=== PATIENT | male | born 1960 | race Caucasian/White ===

== ENCOUNTER 2017-05-05 14:11 | Inpatient (IN) | payer BC ==
[2017-05-05] MEDS ORDERED: Heparin Sodium 100 Units/ML 3 ML Syringe IVPUSH PRN (15:11)
[2017-05-05] MEDS ORDERED: Alteplase 2 MG Vial IV PRN (15:11)
[2017-05-05] MEDS: ceFAZolin 1 GM Vial IV SCH ×2 (15:31→23:44)
[2017-05-05] MEDS: Heparin Sodium 100 Units/ML 3 ML Syringe IVPUSH SCH ×2 (15:31→23:45)
[2017-05-05] MEDS: Sodium Chloride 0.9% 10 ML Syringe IV SCH ×2 (15:31→23:45)
[2017-05-05] MEDS ORDERED: metFORMIN 500 MG Tab PO SCH (18:00)
[2017-05-05] MEDS: metFORMIN 500 MG Tab PO SCH (18:41)
[2017-05-05] MEDS: Tamsulosin 0.4 MG Cap.ER PO SCH (20:05)
[2017-05-05] MEDS: Losartan 50 MG Tab PO SCH (20:05)
[2017-05-05] MEDS: Magnesium Oxide 400 MG Tab PO SCH (20:05)
[2017-05-05] MEDS: Docusate Sodium 100 MG Cap PO SCH (20:05)
[2017-05-05] MEDS: atorvaSTATin 40 MG Tab PO SCH (20:05)
[2017-05-05] MEDS: Acetaminophen 325 MG Tab PO SCH (20:05)
[2017-05-05] MEDS: Polyethylene Glycol 3350 Powder 17 GM Packet PO SCH (20:06)
[2017-05-05] MEDS: Clobetasol 0.05% Crm 30 GM Tube TOP SCH (20:14)
[2017-05-05] MEDS: Miconazole 2% Top Powder 45 GM Container TOP SCH (20:14)
[2017-05-06] MEDS: ceFAZolin 1 GM Vial IV SCH (08:08)
[2017-05-06] MEDS: Enoxaparin 40 MG/0.4 ML Syringe SUBCUT SCH (08:08)
[2017-05-06] MEDS: Polyethylene Glycol 3350 Powder 17 GM Packet PO SCH ×2 (08:08→19:53)
[2017-05-06] MEDS: Docusate Sodium 100 MG Cap PO SCH ×2 (08:09→19:46)
[2017-05-06] MEDS: Magnesium Oxide 400 MG Tab PO SCH ×2 (08:09→19:46)
[2017-05-06] MEDS: Hydrochlorothiazide 25 MG Tab PO SCH (08:09)
[2017-05-06] MEDS: Heparin Sodium 100 Units/ML 3 ML Syringe IVPUSH SCH ×4 (08:09→19:52)
[2017-05-06] MEDS: buPROPion 150 MG Tab.ER PO SCH (08:10)
[2017-05-06] MEDS: Finasteride 5 MG Tab PO SCH (08:10)
[2017-05-06] MEDS: Acetaminophen 325 MG Tab PO SCH ×3 (08:10→19:45)
[2017-05-06] MEDS: Aspirin 81 MG Tab.EC PO SCH (08:10)
[2017-05-06] MEDS: JARDIANCE 25 MG PO SCH (08:10)
[2017-05-06] MEDS: Losartan 50 MG Tab PO SCH ×2 (08:10→19:46)
[2017-05-06] MEDS: Metoprolol Succinate 50 MG Tab.ER PO SCH (08:10)
[2017-05-06] MEDS: Miconazole 2% Top Powder 45 GM Container TOP SCH ×2 (08:11→19:47)
[2017-05-06] MEDS: metFORMIN 500 MG Tab PO SCH ×2 (08:11→17:12)
[2017-05-06] MEDS: Fluticasone Propionate Nasal Spray 16 GM Bottle**OWN MED NASBOTH SCH (08:11)
[2017-05-06] MEDS: Clobetasol 0.05% Crm 30 GM Tube TOP SCH (08:11)
[2017-05-06] MEDS: Sodium Chloride 0.9% 10 ML Syringe IV SCH ×5 (08:12→19:46)
--- NOTE | 2017-05-06 11:20 | PCM.HP ---
H&P History of Present Illness - General Date of Service: 05/05/17 Admit Problem/Dx: Admission Diagnosis/Problem Admission Diagnosis/Problem Abscess Source of Information: Patient, Old Records - History of Present Illness Initial Comments - Free Text/Narative: Swing bed readmission. History of present illness: Patient was originally diagnosed with spinal abscess last month. He was on six weeks of Ancef here. He developed spontaneous drainage from wound mostly serous with little bit of pus. He required a large range of this again in [place]. He was transferred there. Cultured and grew MSSA. He was switched from Ancef to Naprosyn only plan on doing six weeks from the date of his most recent procedure. He missed his urology appointment because of this. He still having some difficulty urinating requiring indwelling Patel. Denies any saddle numbness or cauda equina symptoms otherwise. Had neurologic evaluation when [place] and seen by neurosurgeon. Weakness and left leg is slowly improving per PT. He is doing better with his arms and feeding himself. He's been afebrile. Blood pressure mostly okay still running at touch high. On Lanoxin when necessary DVT prophylaxis. Past medical history: Epidural abscess,septic bacteremia secondary to abscess, BPH, depression, hypertension, hyperlipidemia, diabetes mellitus two. Social history: Nonsmoker, . family history: Noncontributy. Medications: Losartan, Toprol, and ampicillin, Tylenol, magnesium, hydrochlorothiazide, Lovenox, Proscar, Lipitor, aspirin, oxycodone, Wellbutrin, jardiance, metformin, Sena lax, Flomax. Review of systems: Denies fever denies chest pain denies dyspnea and denies peripheral edema or calf pain. Physical exam: Blood pressure 165 or 85 temperature 37 Celsius pulse 82. Third oriented male in wheelchair working with physical therapy no acute distress extremity is warm well perfused without edema or calf pain or swelling. Decreased 3-4 out of five strength left lower extremity. Upper extremity strength is okay. Heart and lungs clear to auscultation. Abdomen soft nontender. Large midline incision with sutures intact lumbar spine. No swelling erythema or drainage. History of sepsis secondary to epidural abscess requiring recent repeat incision and drainage. MSSA again by cultures. He has been switched to nafcillin, the plan appears to be six weeks of antibiotic from most recent procedure per infectious disease. Weekly labs per their request. After completion of antibiotics will undergo repeat imaging and follow-up with neurosurgery. 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 Continue. OT consult. Hopefully he will not need longer rehab stay after completion of six weeks antibiotics. Blood pressure bit high will monitor for now, titrate as needed. Continue Lovenox for now for DVT prophylaxis. As he becomes more ambulatory maybe stop this. Still difficulty with urination. On Flomax plus Proscar. We'll try to get urology referral again for him. Continue Patel for now. Headache Pain Score (Numeric/FACES): 1 - Related Data Allergies/Adverse Reactions: Allergies Allergy/AdvReac Type Severity Reaction Status Date / Time dog dander Allergy Other Verified 04/21/17 13:03 grass pollen Allergy Other Verified 04/21/17 13:03 Horse/Equine Containing Allergy Rash Verified 09/04/13 00:55 Products lisinopril Allergy Swollen Verified 05/05/17 14:14 Tongue mold Allergy Cannot Verified 05/05/17 14:14 Remember Penicillins Allergy unknown Verified 09/04/13 00:55 weed pollen Allergy Cannot Verified 05/05/17 14:14 Remember Home Medications: Home Meds Aspirin [Halfprin] 81 mg PO DAILY 09/04/13 [History] Clobetasol [Clobetasol Propionate 0.05%] 1 gram TOP BID 09/04/13 [History] Metoprolol Succinate [Toprol XL 100mg] 100 mg PO DAILY 09/04/13 [History] atorvaSTATin [Lipitor] 40 mg PO BEDTIME 09/04/13 [History] buPROPion [buPROPion XL] 150 mg PO DAILY 09/04/13 [History] metFORMIN [Glucophage] 1,000 mg PO BIDM 09/04/13 [History] Docusate Sodium [Colace] 100 mg PO BID 04/09/17 [History] Empagliflozin [Jardiance] 25 mg PO DAILY 04/09/17 [History] Fluticasone Propionate [Flonase] 1 spray NASBOTH DAILY 04/09/17 [History] Niacinamide [Niacin] 1,000 mg PO DAILY 04/09/17 [History] Non-Formulary Medication [NF Drug] 50 - 100 mg PO ASDIRECTED PRN 04/09/17 [ History] Polyethylene Glycol 3350 [MiraLAX] 17 gm PO Q12H 04/09/17 [History] Tamsulosin [Flomax] 0.4 mg PO BEDTIME 04/09/17 [History] oxyCODONE 5 mg PO Q4H PRN 04/09/17 [History] Acetaminophen [Tylenol] 650 mg PO TID tablet 05/02/17 [Rx] Finasteride [Proscar] 5 mg PO DAILY tablet 05/02/17 [Rx] Hydrochlorothiazide 25 mg PO DAILY tablet 05/02/17 [Rx] Losartan [Cozaar] 50 mg PO BID tablet 05/02/17 [Rx] Magnesium Oxide 400 mg PO BID tablet 05/02/17 [Rx] Enoxaparin [Lovenox] 40 mg SUBCUT DAILY 05/05/17 [History] Miconazole [Desenex 2%] 1 applic TOP BID 05/05/17 [History] Nafcillin 2 gm IV Q4H 05/05/17 [History] Non-Formulary Medication [NF Drug] 2 tab PO DAILY 05/05/17 [History] Past Medical History Cardiovascular History: Reports: Hypertension Respiratory History: Reports: Asthma Genitourinary History: Reports: Prostate Disorder, Retention, Urinary Musculoskeletal History: Reports: Back Pain, Chronic Endocrine/Metabolic History: Reports: Diabetes, Type II, Obesity/BMI 30+ - Infectious Disease History Infectious Disease History: Reports: Chicken Pox - Past Surgical History Cardiovascular Surgical History: Reports: None Respiratory Surgical History: Reports: None Male Surgical History: Reports: None Other Male Surgeries/Procedures: Currently has a Patel in place from urology in [place]. Musculoskeletal Surgical History: Reports: Other (See Below) Other Musculoskeletal Surgeries/Procedures:: Laminectomy L4-L5 Social & Family History - Family History Family Medical History: Noncontributory HEENT: Reports: Cataract Cardiac: Reports: Angina, Arrhythmia, Heart Failure, Hypertension, [place], Pacemaker , Syncope Respiratory: Reports: None GI: Reports: None Neurological: Reports: Alzheimers Disease Psychiatric: Reports: Anxiety Endocrine/Metabolic: Reports: Diabetes, Type I Oncologic: Reports: Breast, Liver, Lung - Tobacco Use Smoking Status *Q: Never Smoker Second Hand Smoke Exposure: No - Caffeine Use Caffeine Use: Reports: Coffee, Soda - Alcohol Use Days Per Week of Alcohol Use: 0 - Recreational Drug Use Recreational Drug Use: No H&P Review of Systems - Review of Systems: Review Of Systems: See Below Exam - Exam Exam: See Below - Vital Signs Vital Signs: Last Vital Signs Temp 37.0 C 05/06/17 06:00 Pulse 94 05/06/17 08:10 Resp 19 05/06/17 06:00 BP 165/95 H 05/06/17 08:10 Pulse Ox 99 05/06/17 06:00 Weight: 75.75 kg *Q Meaningful Use (ADM) - VTE *Q VTE Criteria *Q: - Stroke *Q Stroke Criteria *Q: - AMI *Q AMI Criteria *Q: Problem List Initiated/Reviewed/Updated: Yes Orders Last 24hrs: Active Orders 24 hr Category Date Time Status Admission Status [Patient Status] [ADT] Routine ADT 05/05/17 14:37 Active Accu Check [Blood Glucose Check, Bedside] [RC] 07,17 Care 05/05/17 17:03 Active Antiembolic Devices [RC] 08,20 Care 05/05/17 18:08 Active Communication Order [RC] 08 Care 05/05/17 14:41 Active Communication Order [RC] Tu@10 Care 05/05/17 14:40 Active OT Evaluation and Treatment [CONS] Routine Cons 05/05/17 14:39 Active PT Evaluation and Treatment [CONS] Routine Cons 05/05/17 14:38 Active Regular Diet [DIET] Diet 05/05/17 Dinner Active ASPARTATE AMNIOTRANSFERASE,AST [CHEM] WEEKLY Lab 05/25/17 05:00 Ordered ASPARTATE AMNIOTRANSFERASE,AST [CHEM] WEEKLY Lab 06/01/17 05:00 Ordered ASPARTATE AMNIOTRANSFERASE,AST [CHEM] WEEKLY Lab 06/08/17 05:00 Ordered ASPARTATE AMNIOTRANSFERASE,AST [CHEM] WEEKLY Lab 06/15/17 05:00 Ordered ASPARTATE AMNIOTRANSFERASE,AST [CHEM] WEEKLY Lab 06/22/17 05:00 Ordered ASPARTATE AMNIOTRANSFERASE,AST [CHEM] WEEKLY Lab 06/29/17 05:00 Ordered ASPARTATE AMNIOTRANSFERASE,AST [CHEM] WEEKLY Lab 05/11/17 05:00 Ordered ASPARTATE AMNIOTRANSFERASE,AST [CHEM] WEEKLY Lab 05/18/17 05:00 Ordered CBC WITH AUTO DIFF [HEME] WEEKLY Lab 05/25/17 05:00 Ordered CBC WITH AUTO DIFF [HEME] WEEKLY Lab 06/01/17 05:00 Ordered CBC WITH AUTO DIFF [HEME] WEEKLY Lab 06/08/17 05:00 Ordered CBC WITH AUTO DIFF [HEME] WEEKLY Lab 06/15/17 05:00 Ordered CBC WITH AUTO DIFF [HEME] WEEKLY Lab 06/22/17 05:00 Ordered CBC WITH AUTO DIFF [HEME] WEEKLY Lab 06/29/17 05:00 Ordered CBC WITH AUTO DIFF [HEME] WEEKLY Lab 05/11/17 05:00 Ordered CBC WITH AUTO DIFF [HEME] WEEKLY Lab 05/18/17 05:00 Ordered CREATININE W/GFR [CHEM] WEEKLY Lab 05/25/17 05:00 Ordered CREATININE W/GFR [CHEM] WEEKLY Lab 06/01/17 05:00 Ordered CREATININE W/GFR [CHEM] WEEKLY Lab 06/08/17 05:00 Ordered CREATININE W/GFR [CHEM] WEEKLY Lab 06/15/17 05:00 Ordered CREATININE W/GFR [CHEM] WEEKLY Lab 06/22/17 05:00 Ordered CREATININE W/GFR [CHEM] WEEKLY Lab 06/29/17 05:00 Ordered CREATININE W/GFR [CHEM] WEEKLY Lab 05/11/17 05:00 Ordered CREATININE W/GFR [CHEM] WEEKLY Lab 05/18/17 05:00 Ordered CRP [C-REACTIVE PROTEIN] [CHEM] WEEKLY Lab 05/25/17 05:00 Ordered CRP [C-REACTIVE PROTEIN] [CHEM] WEEKLY Lab 06/01/17 05:00 Ordered CRP [C-REACTIVE PROTEIN] [CHEM] WEEKLY Lab 06/08/17 05:00 Ordered CRP [C-REACTIVE PROTEIN] [CHEM] WEEKLY Lab 06/15/17 05:00 Ordered CRP [C-REACTIVE PROTEIN] [CHEM] WEEKLY Lab 06/22/17 05:00 Ordered CRP [C-REACTIVE PROTEIN] [CHEM] WEEKLY Lab 06/29/17 05:00 Ordered CRP [C-REACTIVE PROTEIN] [CHEM] WEEKLY Lab 05/11/17 05:00 Ordered CRP [C-REACTIVE PROTEIN] [CHEM] WEEKLY Lab 05/18/17 05:00 Ordered CULTURE MRSA SURVEY [RM] Routine Lab 05/05/17 15:19 Received SEDIMENTATION RATE AUTO [HEME] WEEKLY Lab 05/25/17 05:00 Ordered SEDIMENTATION RATE AUTO [HEME] WEEKLY Lab 06/01/17 05:00 Ordered SEDIMENTATION RATE AUTO [HEME] WEEKLY Lab 06/08/17 05:00 Ordered SEDIMENTATION RATE AUTO [HEME] WEEKLY Lab 06/15/17 05:00 Ordered SEDIMENTATION RATE AUTO [HEME] WEEKLY Lab 06/22/17 05:00 Ordered SEDIMENTATION RATE AUTO [HEME] WEEKLY Lab 06/29/17 05:00 Ordered SEDIMENTATION RATE AUTO [HEME] WEEKLY Lab 05/11/17 05:00 Ordered SEDIMENTATION RATE AUTO [HEME] WEEKLY Lab 05/18/17 05:00 Ordered Acetaminophen [Tylenol] Med 05/05/17 20:00 Active 650 mg PO TID Alteplase [Cathflo Activase] Med 05/05/17 15:11 Active 2 mg IV ASDIRECTED PRN Aspirin [Halfprin] Med 05/06/17 08:00 Active 81 mg PO DAILY Clobetasol [Clobetasol 0.05%] Med 05/05/17 20:00 Active 0 gm TOP BID Docusate Sodium [Colace] Med 05/05/17 20:00 Active 100 mg PO BID Empagliflozin [Jardiance] Med 05/06/17 08:00 Pending 0 mg PO DAILY Enoxaparin [Lovenox] Med 05/06/17 08:00 Active 40 mg SUBCUT DAILY Finasteride [Proscar] Med 05/06/17 08:00 Active 5 mg PO DAILY Fluticasone Propionate [Flonase] Med 05/06/17 08:00 Active 0 gm NASBOTH DAILY Heparin Sodium [Heparin Lock Flush 100 Units/ML] Med 05/05/17 15:11 Active 300 unit IVPUSH ASDIRECTED PRN Heparin Sodium [Heparin Lock Flush 100 Units/ML] Med 05/06/17 12:00 Active 300 unit IVPUSH Q4H Hydrochlorothiazide Med 05/06/17 08:00 Active 25 mg PO DAILY Losartan [Cozaar] Med 05/05/17 20:00 Active 50 mg PO BID Magnesium Oxide Med 05/05/17 20:00 Active 400 mg PO BID Metoprolol Succinate [Toprol XL] Med 05/06/17 08:00 Active 100 mg PO DAILY Miconazole [Desenex 2%] Med 05/05/17 20:00 Active 0 gm TOP BID Nafcillin Med 05/06/17 12:00 Active 2 gm IV Q4H Non-Formulary Medication [NF Drug] Med 05/06/17 12:00 Pending 0 tab PO DAILY Polyethylene Glycol 3350 [MiraLAX] Med 05/05/17 20:00 Active 17 gm PO Q12H Sodium Chloride 0.9% [Saline Flush] Med 05/05/17 15:10 Active 10 ml IV ASDIRECTED PRN Sodium Chloride 0.9% [Saline Flush] Med 05/06/17 12:00 Active 10 ml IV Q4H Sodium Chloride 0.9% [Saline Flush] Med 05/05/17 16:00 Active 10 ml IV Q8H Tamsulosin [Flomax] Med 05/05/17 20:00 Active 0.4 mg PO BEDTIME atorvaSTATin [Lipitor] Med 05/05/17 20:00 Active 40 mg PO BEDTIME buPROPion [Wellbutrin XL] Med 05/06/17 08:00 Active 150 mg PO DAILY metFORMIN [Glucophage] Med 05/05/17 18:45 Active 1,000 mg PO BIDM oxyCODONE Med 05/05/17 17:10 Active 5 mg PO Q4H PRN SCD [Sequential Compression Device] [OM.PC] Routine Oth 05/05/17 18:08 Ordered Code Status [Resuscitation Status] Routine Resus Stat 05/05/17 17:11 Ordered Medication Orders Acetaminophen (Tylenol) 650 mg PO TID [facility] Last Admin: 05/06/17 08:10 Dose: 650 mg Admin: 05/05/17 20:05 Dose: 650 mg Alteplase, Recombinant (Cathflo Activase) 2 mg IV ASDIRECTED PRN PRN Reason: OCCLUDED PICC Aspirin (Halfprin) 81 mg PO DAILY [facility] Last Admin: 05/06/17 08:10 Dose: 81 mg Atorvastatin Calcium (Lipitor) 40 mg PO BEDTIME [facility] Last Admin: 05/05/17 20:05 Dose: 40 mg Bupropion HCl (Wellbutrin Xl) 150 mg PO DAILY [facility] Last Admin: 05/06/17 08:10 Dose: 150 mg Clobetasol Propionate (Clobetasol 0.05%) 0 gm TOP BID [facility] Last Admin: 05/06/17 08:11 Dose: Not Given Admin: 05/05/17 20:14 Dose: 1 applic Docusate Sodium (Colace) 100 mg PO BID [facility] Last Admin: 05/06/17 08:09 Dose: 100 mg Admin: 05/05/17 20:05 Dose: 100 mg Enoxaparin Sodium (Lovenox) 40 mg SUBCUT DAILY [facility] Last Admin: 05/06/17 08:08 Dose: 40 mg Finasteride (Proscar) 5 mg PO DAILY [facility] Last Admin: 05/06/17 08:10 Dose: 5 mg Fluticasone Propionate (Flonase) 0 gm NASBOTH DAILY [facility] Last Admin: 05/06/17 08:11 Dose: 1 spray Heparin Sodium (Porcine) (Heparin Lock Flush 100 Units/Ml) 300 unit IVPUSH ASDIRECTED PRN PRN Reason: Keep Vein Open Heparin Sodium (Porcine) (Heparin Lock Flush 100 Units/Ml) 300 unit IVPUSH Q4H [facility] Hydrochlorothiazide (Hydrochlorothiazide) 25 mg PO DAILY [facility] Last Admin: 05/06/17 08:09 Dose: 25 mg Losartan Potassium (Cozaar) 50 mg PO BID [facility] Last Admin: 05/06/17 08:10 Dose: 50 mg Admin: 05/05/17 20:05 Dose: 50 mg Magnesium Oxide (Magnesium Oxide) 400 mg PO BID [facility] Last Admin: 05/06/17 08:09 Dose: 400 mg Admin: 05/05/17 20:05 Dose: 400 mg Metformin HCl (Glucophage) 1,000 mg PO BIDM [facility] Last Admin: 05/06/17 08:11 Dose: 1,000 mg Admin: 05/05/17 18:41 Dose: 1,000 mg Metoprolol Succinate (Toprol Xl) 100 mg PO DAILY [facility] Last Admin: 05/06/17 08:10 Dose: 100 mg Miconazole (Desenex 2%) 0 gm TOP BID [facility] Last Admin: 05/06/17 08:11 Dose: 1 applic Admin: 05/05/17 20:14 Dose: 1 applic Nafcillin Sodium (Nafcillin) 2 gm IV Q4H [facility] Jardiance 25 Mg (Own Med) 0 mg PO DAILY [facility] Digest. Adv Probiotic Gummy Own Med 0 tab PO DAILY [facility] Oxycodone HCl (Oxycodone) 5 mg PO Q4H PRN PRN Reason: Pain (severe 7-10) Polyethylene Glycol (Miralax) 17 gm PO Q12H [facility] Last Admin: 05/06/17 08:08 Dose: 17 gm Admin: 05/05/17 20:06 Dose: Not Given Sodium Chloride (Saline Flush) 10 ml IV Q8H [facility] Last Admin: 05/06/17 08:12 Dose: 10 ml Admin: 05/05/17 23:45 Dose: 10 ml Admin: 05/05/17 15:31 Dose: 10 ml Sodium Chloride (Saline Flush) 10 ml IV ASDIRECTED PRN PRN Reason: Keep Vein Open Sodium Chloride (Saline Flush) 10 ml IV Q4H [facility] Tamsulosin HCl (Flomax) 0.4 mg PO BEDTIME [facility] Last Admin: 05/05/17 20:05 Dose: 0.4 mg
[2017-05-06] MEDS: oxyCODONE 5 MG Tab PO PRN (12:03)
[2017-05-06] MEDS: [UNRECOGNIZED DRUG - OTHER] PO SCH (12:24)
[2017-05-06] MEDS: Nafcillin 2 GM Vial IV SCH ×3 (12:24→19:45)
[2017-05-06] MEDS: atorvaSTATin 40 MG Tab PO SCH (19:46)
[2017-05-06] MEDS: Tamsulosin 0.4 MG Cap.ER PO SCH (19:46)
[2017-05-06] MEDS: Sodium Chloride 0.9% 10 ML Syringe IV PRN (19:53)
[2017-05-07] MEDS: Nafcillin 2 GM Vial IV SCH ×7 (00:28→23:46)
[2017-05-07] MEDS: Sodium Chloride 0.9% 10 ML Syringe IV SCH ×9 (00:28→23:46)
[2017-05-07] MEDS: Heparin Sodium 100 Units/ML 3 ML Syringe IVPUSH SCH ×7 (00:29→23:51)
[2017-05-07] MEDS: buPROPion 150 MG Tab.ER PO SCH (07:32)
[2017-05-07] MEDS: Enoxaparin 40 MG/0.4 ML Syringe SUBCUT SCH (07:32)
[2017-05-07] MEDS: Finasteride 5 MG Tab PO SCH (07:33)
[2017-05-07] MEDS: Hydrochlorothiazide 25 MG Tab PO SCH (07:33)
[2017-05-07] MEDS: Magnesium Oxide 400 MG Tab PO SCH ×2 (07:33→19:55)
[2017-05-07] MEDS: Acetaminophen 325 MG Tab PO SCH ×3 (07:33→19:54)
[2017-05-07] MEDS: Losartan 50 MG Tab PO SCH ×2 (07:33→19:55)
[2017-05-07] MEDS: metFORMIN 500 MG Tab PO SCH ×2 (07:33→17:46)
[2017-05-07] MEDS: Docusate Sodium 100 MG Cap PO SCH ×2 (07:34→19:55)
[2017-05-07] MEDS: Metoprolol Succinate 50 MG Tab.ER PO SCH (07:34)
[2017-05-07] MEDS: Miconazole 2% Top Powder 45 GM Container TOP SCH ×2 (07:34→19:55)
[2017-05-07] MEDS: Aspirin 81 MG Tab.EC PO SCH (07:34)
[2017-05-07] MEDS: Fluticasone Propionate Nasal Spray 16 GM Bottle**OWN MED NASBOTH SCH (07:35)
[2017-05-07] MEDS: JARDIANCE 25 MG PO SCH (07:35)
[2017-05-07] MEDS: Polyethylene Glycol 3350 Powder 17 GM Packet PO SCH ×2 (07:35→19:54)
[2017-05-07] MEDS: [UNRECOGNIZED DRUG - OTHER] PO SCH ×2 (09:28→14:49)
[2017-05-07] MEDS ORDERED: Sodium Chloride 0.9% 10 ML Syringe IV SCH (12:00)
[2017-05-07] MEDS: atorvaSTATin 40 MG Tab PO SCH (19:54)
[2017-05-07] MEDS: Tamsulosin 0.4 MG Cap.ER PO SCH (19:55)
[2017-05-08] MEDS: Heparin Sodium 100 Units/ML 3 ML Syringe IVPUSH SCH ×6 (04:02→23:43)
[2017-05-08] MEDS: Sodium Chloride 0.9% 10 ML Syringe IV SCH ×6 (04:02→23:43)
[2017-05-08] MEDS: Nafcillin 2 GM Vial IV SCH ×6 (04:02→23:43)
[2017-05-08] MEDS: Polyethylene Glycol 3350 Powder 17 GM Packet PO SCH ×2 (07:58→20:12)
[2017-05-08] MEDS: Docusate Sodium 100 MG Cap PO SCH ×2 (07:59→20:13)
[2017-05-08] MEDS: Aspirin 81 MG Tab.EC PO SCH (07:59)
[2017-05-08] MEDS: Hydrochlorothiazide 25 MG Tab PO SCH (07:59)
[2017-05-08] MEDS: Enoxaparin 40 MG/0.4 ML Syringe SUBCUT SCH (07:59)
[2017-05-08] MEDS: buPROPion 150 MG Tab.ER PO SCH (08:00)
[2017-05-08] MEDS: Finasteride 5 MG Tab PO SCH (08:00)
[2017-05-08] MEDS: metFORMIN 500 MG Tab PO SCH ×3 (08:00→17:00)
[2017-05-08] MEDS: Acetaminophen 325 MG Tab PO SCH ×3 (08:00→20:12)
[2017-05-08] MEDS: Magnesium Oxide 400 MG Tab PO SCH ×2 (08:00→20:13)
[2017-05-08] MEDS: Losartan 50 MG Tab PO SCH ×2 (08:00→20:13)
[2017-05-08] MEDS: Miconazole 2% Top Powder 45 GM Container TOP SCH ×2 (08:00→20:14)
[2017-05-08] MEDS: Metoprolol Succinate 50 MG Tab.ER PO SCH (08:00)
[2017-05-08] MEDS: Fluticasone Propionate Nasal Spray 16 GM Bottle**OWN MED NASBOTH SCH (08:01)
[2017-05-08] MEDS: JARDIANCE 25 MG PO SCH (08:01)
[2017-05-08] MEDS: [UNRECOGNIZED DRUG - OTHER] PO SCH (12:09)
[2017-05-08] MEDS: Tamsulosin 0.4 MG Cap.ER PO SCH (20:13)
[2017-05-08] MEDS: atorvaSTATin 40 MG Tab PO SCH (20:13)
[2017-05-09] MEDS: Nafcillin 2 GM Vial IV SCH ×5 (03:49→20:39)
[2017-05-09] MEDS: Heparin Sodium 100 Units/ML 3 ML Syringe IVPUSH SCH ×5 (03:49→20:38)
[2017-05-09] MEDS: Sodium Chloride 0.9% 10 ML Syringe IV SCH ×5 (03:49→20:39)
[2017-05-09] MEDS: oxyCODONE 5 MG Tab PO PRN ×3 (06:01→18:49)
[2017-05-09] MEDS: JARDIANCE 25 MG PO SCH (08:41)
[2017-05-09] MEDS: Fluticasone Propionate Nasal Spray 16 GM Bottle**OWN MED NASBOTH SCH (08:43)
[2017-05-09] MEDS: Losartan 50 MG Tab PO SCH ×2 (08:43→20:37)
[2017-05-09] MEDS: Magnesium Oxide 400 MG Tab PO SCH ×2 (08:43→20:38)
[2017-05-09] MEDS: Hydrochlorothiazide 25 MG Tab PO SCH (08:43)
[2017-05-09] MEDS: Aspirin 81 MG Tab.EC PO SCH (08:43)
[2017-05-09] MEDS: buPROPion 150 MG Tab.ER PO SCH (08:43)
[2017-05-09] MEDS: Enoxaparin 40 MG/0.4 ML Syringe SUBCUT SCH (08:43)
[2017-05-09] MEDS: Finasteride 5 MG Tab PO SCH (08:43)
[2017-05-09] MEDS: metFORMIN 500 MG Tab PO SCH ×2 (08:44→17:14)
[2017-05-09] MEDS: Metoprolol Succinate 50 MG Tab.ER PO SCH (08:44)
[2017-05-09] MEDS: Miconazole 2% Top Powder 45 GM Container TOP SCH ×2 (08:44→20:37)
[2017-05-09] MEDS: Docusate Sodium 100 MG Cap PO SCH ×2 (08:44→20:38)
[2017-05-09] MEDS: Acetaminophen 325 MG Tab PO SCH ×4 (08:44→20:36)
[2017-05-09] MEDS: Polyethylene Glycol 3350 Powder 17 GM Packet PO SCH ×2 (08:46→20:38)
[2017-05-09] MEDS: [UNRECOGNIZED DRUG - OTHER] PO SCH (12:17)
[2017-05-09] MEDS: atorvaSTATin 40 MG Tab PO SCH (20:36)
[2017-05-09] MEDS: Tamsulosin 0.4 MG Cap.ER PO SCH (20:37)
[2017-05-10] MEDS: Heparin Sodium 100 Units/ML 3 ML Syringe IVPUSH SCH ×6 (00:54→21:04)
[2017-05-10] MEDS: Nafcillin 2 GM Vial IV SCH ×6 (00:54→21:04)
[2017-05-10] MEDS: Sodium Chloride 0.9% 10 ML Syringe IV SCH ×6 (00:54→21:05)
[2017-05-10] MEDS: Polyethylene Glycol 3350 Powder 17 GM Packet PO SCH ×2 (08:32→21:04)
[2017-05-10] MEDS: Enoxaparin 40 MG/0.4 ML Syringe SUBCUT SCH (08:32)
[2017-05-10] MEDS: buPROPion 150 MG Tab.ER PO SCH (08:33)
[2017-05-10] MEDS: Magnesium Oxide 400 MG Tab PO SCH ×2 (08:33→21:04)
[2017-05-10] MEDS: Losartan 50 MG Tab PO SCH ×2 (08:33→21:03)
[2017-05-10] MEDS: Aspirin 81 MG Tab.EC PO SCH (08:33)
[2017-05-10] MEDS: Docusate Sodium 100 MG Cap PO SCH ×2 (08:33→21:02)
[2017-05-10] MEDS: Finasteride 5 MG Tab PO SCH (08:33)
[2017-05-10] MEDS: Acetaminophen 325 MG Tab PO SCH ×3 (08:33→21:03)
[2017-05-10] MEDS: Hydrochlorothiazide 25 MG Tab PO SCH (08:33)
[2017-05-10] MEDS: metFORMIN 500 MG Tab PO SCH ×3 (08:33→17:01)
[2017-05-10] MEDS: Metoprolol Succinate 50 MG Tab.ER PO SCH (08:33)
[2017-05-10] MEDS: Fluticasone Propionate Nasal Spray 16 GM Bottle**OWN MED NASBOTH SCH (08:34)
[2017-05-10] MEDS: Miconazole 2% Top Powder 45 GM Container TOP SCH ×2 (08:34→21:04)
[2017-05-10] MEDS: JARDIANCE 25 MG PO SCH (08:34)
[2017-05-10] MEDS: oxyCODONE 5 MG Tab PO PRN (10:41)
[2017-05-10] MEDS: [UNRECOGNIZED DRUG - OTHER] PO SCH (12:03)
[2017-05-10] MEDS: Acetaminophen 500 MG Tab PO PRN (17:11)
[2017-05-10] MEDS: atorvaSTATin 40 MG Tab PO SCH (21:03)
[2017-05-10] MEDS: Tamsulosin 0.4 MG Cap.ER PO SCH (21:03)
[2017-05-11] MEDS: Nafcillin 2 GM Vial IV SCH ×6 (00:49→20:44)
[2017-05-11] MEDS: Heparin Sodium 100 Units/ML 3 ML Syringe IVPUSH SCH ×6 (00:49→20:51)
[2017-05-11] MEDS: Sodium Chloride 0.9% 10 ML Syringe IV SCH ×6 (00:49→20:44)
[2017-05-11 07:59] LABS: CHLORIDE,CL 103 mmol/L (98-107); SODIUM,NA 143 mmol/L (136-145)
[2017-05-11] MEDS: metFORMIN 500 MG Tab PO SCH ×2 (08:17→17:07)
[2017-05-11] MEDS: Hydrochlorothiazide 25 MG Tab PO SCH (08:17)
[2017-05-11] MEDS: Metoprolol Succinate 50 MG Tab.ER PO SCH (08:18)
[2017-05-11] MEDS: buPROPion 150 MG Tab.ER PO SCH (08:18)
[2017-05-11] MEDS: Losartan 50 MG Tab PO SCH ×2 (08:18→20:43)
[2017-05-11] MEDS: Aspirin 81 MG Tab.EC PO SCH (08:18)
[2017-05-11] MEDS: Magnesium Oxide 400 MG Tab PO SCH ×2 (08:18→20:43)
[2017-05-11] MEDS: Finasteride 5 MG Tab PO SCH (08:18)
[2017-05-11] MEDS: Docusate Sodium 100 MG Cap PO SCH ×2 (08:18→20:43)
[2017-05-11] MEDS: Polyethylene Glycol 3350 Powder 17 GM Packet PO SCH ×2 (08:19→20:51)
[2017-05-11] MEDS: Enoxaparin 40 MG/0.4 ML Syringe SUBCUT SCH (08:19)
[2017-05-11] MEDS: Acetaminophen 325 MG Tab PO SCH ×3 (08:19→20:42)
[2017-05-11] MEDS: Fluticasone Propionate Nasal Spray 16 GM Bottle**OWN MED NASBOTH SCH (08:25)
[2017-05-11] MEDS: JARDIANCE 25 MG PO SCH (08:27)
[2017-05-11] MEDS: Miconazole 2% Top Powder 45 GM Container TOP SCH ×2 (08:28→20:43)
[2017-05-11] MEDS: [UNRECOGNIZED DRUG - OTHER] PO SCH (11:09)
[2017-05-11] MEDS: Tamsulosin 0.4 MG Cap.ER PO SCH (20:42)
[2017-05-11] MEDS: atorvaSTATin 40 MG Tab PO SCH (20:43)
[2017-05-12] MEDS: Heparin Sodium 100 Units/ML 3 ML Syringe IVPUSH SCH ×5 (00:16→19:52)
[2017-05-12] MEDS: Nafcillin 2 GM Vial IV SCH ×6 (00:16→19:51)
[2017-05-12] MEDS: Sodium Chloride 0.9% 10 ML Syringe IV SCH ×5 (00:16→19:51)
[2017-05-12] MEDS ORDERED: Non-Formulary Medication 1 Each PO PRN (13:35)
[2017-05-12] MEDS ORDERED: Nafcillin 2 GM Vial IV SCH (13:45)
[2017-05-12] MEDS ORDERED: Potassium Chloride 20 MEQ Tab.ER PO SCH (13:45)
[2017-05-12] MEDS: JARDIANCE 25 MG PO SCH (13:52)
[2017-05-12] MEDS: Docusate Sodium 100 MG Cap PO SCH ×2 (13:52→19:51)
[2017-05-12] MEDS: Miconazole 2% Top Powder 45 GM Container TOP SCH ×2 (13:52→19:52)
[2017-05-12] MEDS: Fluticasone Propionate Nasal Spray 16 GM Bottle**OWN MED NASBOTH SCH (13:52)
[2017-05-12] MEDS: metFORMIN 500 MG Tab PO SCH ×2 (13:52→17:32)
[2017-05-12] MEDS: Losartan 50 MG Tab PO SCH ×2 (13:52→19:52)
[2017-05-12] MEDS: Enoxaparin 40 MG/0.4 ML Syringe SUBCUT SCH (13:53)
[2017-05-12] MEDS: Magnesium Oxide 400 MG Tab PO SCH ×2 (13:53→19:52)
[2017-05-12] MEDS: Aspirin 81 MG Tab.EC PO SCH (13:53)
[2017-05-12] MEDS: Hydrochlorothiazide 25 MG Tab PO SCH (13:53)
[2017-05-12] MEDS: Polyethylene Glycol 3350 Powder 17 GM Packet PO SCH ×2 (13:53→20:22)
[2017-05-12] MEDS: Metoprolol Succinate 50 MG Tab.ER PO SCH (13:54)
[2017-05-12] MEDS: buPROPion 150 MG Tab.ER PO SCH (13:54)
[2017-05-12] MEDS: Finasteride 5 MG Tab PO SCH (13:54)
[2017-05-12] MEDS: Acetaminophen 325 MG Tab PO SCH ×2 (13:54→19:52)
[2017-05-12] MEDS: [UNRECOGNIZED DRUG - OTHER] PO SCH (13:55)
[2017-05-12] MEDS: Potassium Chloride 20 MEQ Tab.ER PO SCH ×2 (14:38→17:31)
[2017-05-12] MEDS: atorvaSTATin 40 MG Tab PO SCH (19:51)
[2017-05-12] MEDS: Tamsulosin 0.4 MG Cap.ER PO SCH (19:52)
[2017-05-13] MEDS: Nafcillin 2 GM Vial IV SCH ×6 (00:09→19:53)
[2017-05-13] MEDS: Sodium Chloride 0.9% 10 ML Syringe IV SCH ×6 (00:09→19:53)
[2017-05-13] MEDS: Heparin Sodium 100 Units/ML 3 ML Syringe IVPUSH SCH ×6 (00:09→19:53)
[2017-05-13] MEDS: Enoxaparin 40 MG/0.4 ML Syringe SUBCUT SCH (08:08)
[2017-05-13] MEDS: Potassium Chloride 20 MEQ Tab.ER PO SCH ×2 (08:09→17:40)
[2017-05-13] MEDS: Metoprolol Succinate 50 MG Tab.ER PO SCH (08:09)
[2017-05-13] MEDS: Aspirin 81 MG Tab.EC PO SCH (08:09)
[2017-05-13] MEDS: Finasteride 5 MG Tab PO SCH (08:09)
[2017-05-13] MEDS: Docusate Sodium 100 MG Cap PO SCH ×2 (08:09→19:52)
[2017-05-13] MEDS: buPROPion 150 MG Tab.ER PO SCH (08:09)
[2017-05-13] MEDS: Hydrochlorothiazide 25 MG Tab PO SCH (08:09)
[2017-05-13] MEDS: Polyethylene Glycol 3350 Powder 17 GM Packet PO SCH ×2 (08:10→19:54)
[2017-05-13] MEDS: Acetaminophen 325 MG Tab PO SCH ×3 (08:10→19:52)
[2017-05-13] MEDS: Fluticasone Propionate Nasal Spray 16 GM Bottle**OWN MED NASBOTH SCH (08:10)
[2017-05-13] MEDS: metFORMIN 500 MG Tab PO SCH ×2 (08:10→17:41)
[2017-05-13] MEDS: Magnesium Oxide 400 MG Tab PO SCH ×2 (08:10→19:53)
[2017-05-13] MEDS: Losartan 50 MG Tab PO SCH ×2 (08:10→19:52)
[2017-05-13] MEDS: JARDIANCE 25 MG PO SCH (08:11)
[2017-05-13] MEDS: Miconazole 2% Top Powder 45 GM Container TOP SCH ×2 (08:11→19:53)
[2017-05-13] MEDS: [UNRECOGNIZED DRUG - OTHER] PO SCH (12:25)
[2017-05-13] MEDS: atorvaSTATin 40 MG Tab PO SCH (19:52)
[2017-05-13] MEDS: Tamsulosin 0.4 MG Cap.ER PO SCH (19:53)
[2017-05-14] MEDS: Sodium Chloride 0.9% 10 ML Syringe IV SCH ×6 (00:06→19:38)
[2017-05-14] MEDS: Nafcillin 2 GM Vial IV SCH ×6 (00:06→19:37)
[2017-05-14] MEDS: Heparin Sodium 100 Units/ML 3 ML Syringe IVPUSH SCH ×6 (00:06→19:38)
[2017-05-14] MEDS: Miconazole 2% Top Powder 45 GM Container TOP SCH ×2 (08:06→19:38)
[2017-05-14] MEDS: Hydrochlorothiazide 25 MG Tab PO SCH (08:07)
[2017-05-14] MEDS: Enoxaparin 40 MG/0.4 ML Syringe SUBCUT SCH (08:07)
[2017-05-14] MEDS: Docusate Sodium 100 MG Cap PO SCH ×2 (08:08→19:38)
[2017-05-14] MEDS: Metoprolol Succinate 50 MG Tab.ER PO SCH (08:08)
[2017-05-14] MEDS: Acetaminophen 325 MG Tab PO SCH ×3 (08:08→19:37)
[2017-05-14] MEDS: buPROPion 150 MG Tab.ER PO SCH (08:08)
[2017-05-14] MEDS: Losartan 50 MG Tab PO SCH ×2 (08:08→19:38)
[2017-05-14] MEDS: Finasteride 5 MG Tab PO SCH (08:09)
[2017-05-14] MEDS: Magnesium Oxide 400 MG Tab PO SCH ×2 (08:09→19:37)
[2017-05-14] MEDS: Potassium Chloride 20 MEQ Tab.ER PO SCH ×2 (08:09→18:02)
[2017-05-14] MEDS: metFORMIN 500 MG Tab PO SCH ×2 (08:09→18:02)
[2017-05-14] MEDS: Aspirin 81 MG Tab.EC PO SCH (08:09)
[2017-05-14] MEDS: Fluticasone Propionate Nasal Spray 16 GM Bottle**OWN MED NASBOTH SCH (08:10)
[2017-05-14] MEDS: JARDIANCE 25 MG PO SCH (08:10)
[2017-05-14] MEDS: Polyethylene Glycol 3350 Powder 17 GM Packet PO SCH ×2 (08:49→19:39)
[2017-05-14] MEDS: [UNRECOGNIZED DRUG - OTHER] PO SCH (12:07)
[2017-05-14] MEDS: Tamsulosin 0.4 MG Cap.ER PO SCH (19:38)
[2017-05-14] MEDS: atorvaSTATin 40 MG Tab PO SCH (19:38)
[2017-05-15] MEDS: Heparin Sodium 100 Units/ML 3 ML Syringe IVPUSH SCH ×6 (00:16→20:28)
[2017-05-15] MEDS: Sodium Chloride 0.9% 10 ML Syringe IV SCH ×6 (00:16→20:29)
[2017-05-15] MEDS: Nafcillin 2 GM Vial IV SCH ×6 (00:16→20:28)
[2017-05-15] MEDS: Enoxaparin 40 MG/0.4 ML Syringe SUBCUT SCH (07:59)
[2017-05-15] MEDS: Miconazole 2% Top Powder 45 GM Container TOP SCH ×2 (07:59→20:27)
[2017-05-15] MEDS: Polyethylene Glycol 3350 Powder 17 GM Packet PO SCH ×2 (08:02→20:32)
[2017-05-15] MEDS: Losartan 50 MG Tab PO SCH ×2 (08:03→20:26)
[2017-05-15] MEDS: Docusate Sodium 100 MG Cap PO SCH ×2 (08:03→20:30)
[2017-05-15] MEDS: Potassium Chloride 20 MEQ Tab.ER PO SCH ×2 (08:03→18:53)
[2017-05-15] MEDS: Magnesium Oxide 400 MG Tab PO SCH ×2 (08:03→20:26)
[2017-05-15] MEDS: Acetaminophen 325 MG Tab PO SCH ×3 (08:03→20:27)
[2017-05-15] MEDS: Aspirin 81 MG Tab.EC PO SCH (08:04)
[2017-05-15] MEDS: metFORMIN 500 MG Tab PO SCH ×2 (08:04→18:53)
[2017-05-15] MEDS: Hydrochlorothiazide 25 MG Tab PO SCH (08:04)
[2017-05-15] MEDS: Finasteride 5 MG Tab PO SCH (08:04)
[2017-05-15] MEDS: Metoprolol Succinate 50 MG Tab.ER PO SCH (08:04)
[2017-05-15] MEDS: buPROPion 150 MG Tab.ER PO SCH (08:04)
[2017-05-15] MEDS: JARDIANCE 25 MG PO SCH (08:05)
[2017-05-15] MEDS: Fluticasone Propionate Nasal Spray 16 GM Bottle**OWN MED NASBOTH SCH (08:05)
[2017-05-15] MEDS: [UNRECOGNIZED DRUG - OTHER] PO SCH (12:51)
[2017-05-15] MEDS: Tamsulosin 0.4 MG Cap.ER PO SCH (20:26)
[2017-05-15] MEDS: atorvaSTATin 40 MG Tab PO SCH (20:26)
[2017-05-16] MEDS: Nafcillin 2 GM Vial IV SCH ×6 (01:15→20:43)
[2017-05-16] MEDS: Sodium Chloride 0.9% 10 ML Syringe IV SCH ×6 (01:15→20:44)
[2017-05-16] MEDS: Heparin Sodium 100 Units/ML 3 ML Syringe IVPUSH SCH ×6 (01:15→20:44)
[2017-05-16] MEDS: Enoxaparin 40 MG/0.4 ML Syringe SUBCUT SCH (08:09)
[2017-05-16] MEDS: Acetaminophen 325 MG Tab PO SCH ×3 (08:10→20:40)
[2017-05-16] MEDS: buPROPion 150 MG Tab.ER PO SCH (08:10)
[2017-05-16] MEDS: Magnesium Oxide 400 MG Tab PO SCH ×2 (08:10→20:41)
[2017-05-16] MEDS: Aspirin 81 MG Tab.EC PO SCH (08:11)
[2017-05-16] MEDS: Finasteride 5 MG Tab PO SCH (08:11)
[2017-05-16] MEDS: Hydrochlorothiazide 25 MG Tab PO SCH (08:11)
[2017-05-16] MEDS: Metoprolol Succinate 50 MG Tab.ER PO SCH (08:11)
[2017-05-16] MEDS: metFORMIN 500 MG Tab PO SCH ×2 (08:12→18:02)
[2017-05-16] MEDS: Docusate Sodium 100 MG Cap PO SCH ×2 (08:12→20:42)
[2017-05-16] MEDS: Losartan 50 MG Tab PO SCH ×2 (08:13→20:41)
[2017-05-16] MEDS: Fluticasone Propionate Nasal Spray 16 GM Bottle**OWN MED NASBOTH SCH (08:13)
[2017-05-16] MEDS: Potassium Chloride 20 MEQ Tab.ER PO SCH ×2 (08:13→18:01)
[2017-05-16] MEDS: JARDIANCE 25 MG PO SCH (08:13)
[2017-05-16] MEDS: Polyethylene Glycol 3350 Powder 17 GM Packet PO SCH ×2 (08:14→20:42)
[2017-05-16] MEDS: Miconazole 2% Top Powder 45 GM Container TOP SCH ×2 (08:14→22:30)
[2017-05-16] MEDS: [UNRECOGNIZED DRUG - OTHER] PO SCH (12:21)
[2017-05-16] MEDS: atorvaSTATin 40 MG Tab PO SCH (20:41)
[2017-05-16] MEDS: Tamsulosin 0.4 MG Cap.ER PO SCH (20:42)
[2017-05-17] MEDS: Nafcillin 2 GM Vial IV SCH ×6 (00:37→19:31)
[2017-05-17] MEDS: Heparin Sodium 100 Units/ML 3 ML Syringe IVPUSH SCH ×6 (00:43→19:32)
[2017-05-17] MEDS: Sodium Chloride 0.9% 10 ML Syringe IV SCH ×6 (00:43→19:32)
[2017-05-17] MEDS: Aspirin 81 MG Tab.EC PO SCH (08:08)
[2017-05-17] MEDS: Enoxaparin 40 MG/0.4 ML Syringe SUBCUT SCH (08:08)
[2017-05-17] MEDS: Metoprolol Succinate 50 MG Tab.ER PO SCH (08:09)
[2017-05-17] MEDS: metFORMIN 500 MG Tab PO SCH ×2 (08:09→17:40)
[2017-05-17] MEDS: Potassium Chloride 20 MEQ Tab.ER PO SCH ×2 (08:09→17:40)
[2017-05-17] MEDS: buPROPion 150 MG Tab.ER PO SCH (08:09)
[2017-05-17] MEDS: Polyethylene Glycol 3350 Powder 17 GM Packet PO SCH ×2 (08:10→19:32)
[2017-05-17] MEDS: Hydrochlorothiazide 25 MG Tab PO SCH (08:10)
[2017-05-17] MEDS: Magnesium Oxide 400 MG Tab PO SCH ×2 (08:10→19:30)
[2017-05-17] MEDS: Finasteride 5 MG Tab PO SCH (08:10)
[2017-05-17] MEDS: Acetaminophen 325 MG Tab PO SCH ×3 (08:10→19:29)
[2017-05-17] MEDS: Losartan 50 MG Tab PO SCH ×2 (08:10→19:30)
[2017-05-17] MEDS: JARDIANCE 25 MG PO SCH (08:11)
[2017-05-17] MEDS: Fluticasone Propionate Nasal Spray 16 GM Bottle**OWN MED NASBOTH SCH (08:11)
[2017-05-17] MEDS: Miconazole 2% Top Powder 45 GM Container TOP SCH ×2 (08:11→19:32)
[2017-05-17] MEDS: Docusate Sodium 100 MG Cap PO SCH ×2 (08:11→19:32)
[2017-05-17] MEDS: [UNRECOGNIZED DRUG - OTHER] PO SCH (12:47)
[2017-05-17] MEDS: atorvaSTATin 40 MG Tab PO SCH (19:30)
[2017-05-17] MEDS: Tamsulosin 0.4 MG Cap.ER PO SCH (19:30)
[2017-05-18] MEDS: Sodium Chloride 0.9% 10 ML Syringe IV SCH ×7 (00:05→23:48)
[2017-05-18] MEDS: Heparin Sodium 100 Units/ML 3 ML Syringe IVPUSH SCH ×7 (00:05→23:48)
[2017-05-18] MEDS: Nafcillin 2 GM Vial IV SCH ×7 (04:04→23:48)
[2017-05-18] MEDS: Enoxaparin 40 MG/0.4 ML Syringe SUBCUT SCH (08:12)
[2017-05-18] MEDS: buPROPion 150 MG Tab.ER PO SCH (08:13)
[2017-05-18] MEDS: Magnesium Oxide 400 MG Tab PO SCH ×2 (08:13→19:38)
[2017-05-18] MEDS: Losartan 50 MG Tab PO SCH ×2 (08:13→19:37)
[2017-05-18] MEDS: metFORMIN 500 MG Tab PO SCH ×2 (08:13→17:45)
[2017-05-18] MEDS: Acetaminophen 325 MG Tab PO SCH ×3 (08:13→19:37)
[2017-05-18] MEDS: Aspirin 81 MG Tab.EC PO SCH (08:13)
[2017-05-18] MEDS: Finasteride 5 MG Tab PO SCH (08:13)
[2017-05-18] MEDS: Metoprolol Succinate 50 MG Tab.ER PO SCH (08:13)
[2017-05-18] MEDS: JARDIANCE 25 MG PO SCH (08:14)
[2017-05-18] MEDS: Hydrochlorothiazide 25 MG Tab PO SCH (08:14)
[2017-05-18] MEDS: Miconazole 2% Top Powder 45 GM Container TOP SCH ×2 (08:15→19:38)
[2017-05-18] MEDS: Fluticasone Propionate Nasal Spray 16 GM Bottle**OWN MED NASBOTH SCH (08:15)
[2017-05-18] MEDS: Docusate Sodium 100 MG Cap PO SCH ×2 (08:17→20:03)
[2017-05-18] MEDS: Polyethylene Glycol 3350 Powder 17 GM Packet PO SCH ×2 (08:17→20:03)
[2017-05-18] MEDS: Potassium Chloride 20 MEQ Tab.ER PO SCH ×2 (08:19→17:45)
[2017-05-18 08:42] LABS: CHLORIDE,CL 103 mmol/L (98-107); SODIUM,NA 140 mmol/L (136-145)
[2017-05-18] MEDS: [UNRECOGNIZED DRUG - OTHER] PO SCH (12:04)
[2017-05-18] MEDS: atorvaSTATin 40 MG Tab PO SCH (19:38)
[2017-05-18] MEDS: Tamsulosin 0.4 MG Cap.ER PO SCH (19:38)
[2017-05-19] MEDS: Sodium Chloride 0.9% 10 ML Syringe IV SCH ×6 (04:15→23:58)
[2017-05-19] MEDS: Nafcillin 2 GM Vial IV SCH ×6 (04:16→23:58)
[2017-05-19] MEDS: Heparin Sodium 100 Units/ML 3 ML Syringe IVPUSH SCH ×6 (04:18→23:58)
[2017-05-19] MEDS: Enoxaparin 40 MG/0.4 ML Syringe SUBCUT SCH (07:37)
[2017-05-19] MEDS: buPROPion 150 MG Tab.ER PO SCH (07:38)
[2017-05-19] MEDS: Metoprolol Succinate 50 MG Tab.ER PO SCH (07:38)
[2017-05-19] MEDS: Aspirin 81 MG Tab.EC PO SCH (07:38)
[2017-05-19] MEDS: Finasteride 5 MG Tab PO SCH (07:39)
[2017-05-19] MEDS: metFORMIN 500 MG Tab PO SCH ×2 (07:39→18:11)
[2017-05-19] MEDS: Acetaminophen 325 MG Tab PO SCH ×3 (07:39→20:09)
[2017-05-19] MEDS: Magnesium Oxide 400 MG Tab PO SCH ×2 (07:39→20:11)
[2017-05-19] MEDS: Losartan 50 MG Tab PO SCH ×2 (07:39→20:09)
[2017-05-19] MEDS: Hydrochlorothiazide 25 MG Tab PO SCH (07:39)
[2017-05-19] MEDS: Potassium Chloride 20 MEQ Tab.ER PO SCH (07:40)
[2017-05-19] MEDS: Docusate Sodium 100 MG Cap PO SCH ×2 (07:41→20:09)
[2017-05-19] MEDS: JARDIANCE 25 MG PO SCH (07:42)
[2017-05-19] MEDS: Fluticasone Propionate Nasal Spray 16 GM Bottle**OWN MED NASBOTH SCH (07:42)
[2017-05-19] MEDS: Miconazole 2% Top Powder 45 GM Container TOP SCH ×2 (07:43→20:10)
[2017-05-19] MEDS: Polyethylene Glycol 3350 Powder 17 GM Packet PO SCH ×2 (07:43→20:10)
[2017-05-19] MEDS: [UNRECOGNIZED DRUG - OTHER] PO SCH (11:06)
--- NOTE | 2017-05-19 11:06 | PCM.PN ---
- General Info Date of Service: 05/19/17 Subjective Update: Subjective: Patient was readmitted swing bed two weeks ago after recurrent IND for known complex spinal abscess. He again grew MSSA. Antibiotics switched to nafcillin. He's been feeling good. Strength continues to improve. He's now a able to ambulate some laps with assistance of walker. Still mild left foot drop. Still some residual weakness left arm. He feels like defecation has improved. He still has Patel in place. Blood pressures been controlled, he's been afebrile. Objective: Blood pressure [birth year]19/1984, temperature 36.7, pulse 80, alert oriented pleasant no acute distress. Heart and lungs clear to auscultation. Abdomen soft nontender. Extremity is warm well perfused without tenderness or edema. He sits with her legs and slightly splayed fashion. Patel catheter is in place. Four out of five strength left lower leg. Slight trending upward of ESR to 43 CRP to 25. Potassium 4.0. Assessment and plan: Swing bed admission for six weeks of antibiotics from approximately 05/03/2017, nafcillin for MSSA. Counts relatively stable. Mild trend upwards ESR CRP from previous, continue to monitor temps. Follow-up with ID after completion of antibiotics, I don't see why he would need to see them on June 04 if he has not done yet. Repeat imaging and neurosurgery eval after completion as well. Continues to improve with his weakness from physical therapy standpoint. They are continuing to work with him aggressively. DC Lovenox DVT prophylaxis now that he is more ambulatory, continue baby aspirin. Has had Patel in again for couple weeks now. Now that he is more active full try getting this out next Thursday; TWOC before seeing urology again in approximately two weeks. Blood pressures currently controlled. Potassium is normal. We will try decreasing KCl to once daily, he doesn't like the large "horse pills ". - Patient Data Vitals - Most Recent: Last Vital Signs Temp 36.8 C 05/19/17 06:00 Pulse 84 05/19/17 07:38 Resp 18 05/19/17 06:00 BP 125/75 05/19/17 07:39 Pulse Ox 100 05/19/17 06:00 Weight - Most Recent: 76.294 kg I&O - Last 24 Hours: Intake & Output 05/18/17 05/19/17 05/19/17 22:59 06:59 14:59 Intake Total 720 650 Output Total 700 750 Balance 20 -100 Lab Results Last 24 Hours: Laboratory Results - last 24 hr 05/18/17 Range/Units 17:05 POC Glucose 210 H (74-106) mg/dL Med Orders - Current: Current Medications Acetaminophen (Tylenol) 650 mg PO TID [facility] Last Admin: 05/19/17 07:39 Dose: 650 mg Acetaminophen (Tylenol Extra Strength) 500 mg PO BID PRN PRN Reason: Pain Last Admin: 05/10/17 17:11 Dose: 500 mg Alteplase, Recombinant (Cathflo Activase) 2 mg IV ASDIRECTED PRN PRN Reason: OCCLUDED PICC Aspirin (Halfprin) 81 mg PO DAILY [facility] Last Admin: 05/19/17 07:38 Dose: 81 mg Atorvastatin Calcium (Lipitor) 40 mg PO BEDTIME [facility] Last Admin: 05/18/17 19:38 Dose: 40 mg Bupropion HCl (Wellbutrin Xl) 150 mg PO DAILY [facility] Last Admin: 05/19/17 07:38 Dose: 150 mg Calcium Carbonate/Glycine (Tums Extra Strength) 750 mg PO Q2H PRN PRN Reason: UPSET STOMACH/HEARTBURN Docusate Sodium (Colace) 100 mg PO BID [facility] Last Admin: 05/19/17 07:41 Dose: Not Given Finasteride (Proscar) 5 mg PO DAILY [facility] Last Admin: 05/19/17 07:39 Dose: 5 mg Fluticasone Propionate (Flonase) 0 gm NASBOTH DAILY [facility] Last Admin: 05/19/17 07:42 Dose: 2 spray Heparin Sodium (Porcine) (Heparin Lock Flush 100 Units/Ml) 300 unit IVPUSH ASDIRECTED PRN PRN Reason: Keep Vein Open Heparin Sodium (Porcine) (Heparin Lock Flush 100 Units/Ml) 300 unit IVPUSH Q4H [facility] Last Admin: 05/19/17 07:43 Dose: 300 unit Hydrochlorothiazide (Hydrochlorothiazide) 25 mg PO DAILY [facility] Last Admin: 05/19/17 07:39 Dose: 25 mg Losartan Potassium (Cozaar) 50 mg PO BID [facility] Last Admin: 05/19/17 07:39 Dose: 50 mg Magnesium Oxide (Magnesium Oxide) 400 mg PO BID [facility] Last Admin: 05/19/17 07:39 Dose: 400 mg Metformin HCl (Glucophage) 1,000 mg PO BIDMEALS [facility] Last Admin: 05/19/17 07:39 Dose: 1,000 mg Metoprolol Succinate (Toprol Xl) 100 mg PO DAILY [facility] Last Admin: 05/19/17 07:38 Dose: 100 mg Miconazole (Desenex 2%) 0 gm TOP BID [facility] Last Admin: 05/19/17 07:43 Dose: 1 applic Nafcillin Sodium (Nafcillin) 2 gm IV Q4H [facility] Last Admin: 05/19/17 07:36 Dose: 2 gm Jardiance 25 Mg (Own Med) 25 mg PO DAILY [facility] Last Admin: 05/19/17 07:42 Dose: 25 mg Digest. Adv Probiotic Gummy Own Med 2 tab PO DAILY@1200 [facility] Last Admin: 05/18/17 12:04 Dose: 2 tab Oxycodone HCl (Oxycodone) 5 mg PO Q4H PRN PRN Reason: Pain (severe 7-10) Last Admin: 05/10/17 10:41 Dose: 5 mg Polyethylene Glycol (Miralax) 17 gm PO Q12H [facility] Last Admin: 05/19/17 07:43 Dose: Not Given Potassium Chloride (Klor-Con M20) 20 meq PO DAILY [facility] Sodium Chloride (Saline Flush) 10 ml IV ASDIRECTED PRN PRN Reason: Keep Vein Open Last Admin: 05/06/17 19:53 Dose: 10 ml Sodium Chloride (Saline Flush) 10 ml IV Q4H [facility] Last Admin: 05/19/17 07:38 Dose: 10 ml Tamsulosin HCl (Flomax) 0.4 mg PO BEDTIME [facility] Last Admin: 05/18/17 19:38 Dose: 0.4 mg Discontinued Medications Cefazolin Sodium (Ancef) 2 gm IV Q8H [facility] Stop: 05/06/17 08:01 Last Admin: 05/06/17 08:08 Dose: 2 gm Clobetasol Propionate (Clobetasol 0.05%) 0 gm TOP BID [facility] Last Admin: 05/06/17 08:11 Dose: Not Given Enoxaparin Sodium (Lovenox) 40 mg SUBCUT DAILY [facility] Last Admin: 05/19/17 07:37 Dose: 40 mg Heparin Sodium (Porcine) (Heparin Lock Flush 100 Units/Ml) 300 unit IVPUSH Q8H [facility] Stop: 05/06/17 08:01 Last Admin: 05/06/17 08:09 Dose: 300 unit Metformin HCl (Glucophage) 1,000 mg PO BIDM BUDDY Metformin HCl (Glucophage) 1,000 mg PO BIDM [facility] Last Admin: 05/13/17 08:10 Dose: 1,000 mg Digest. Adv Probiotic Gummy Own Med 2 tab PO DAILY [facility] Last Admin: 05/07/17 09:28 Dose: Not Given Potassium Chloride (Klor-Con M20) 20 meq PO BIDMEALS [facility] Last Admin: 05/19/17 07:40 Dose: 20 meq Sodium Chloride (Saline Flush) 10 ml IV Q8H [facility] Last Admin: 05/07/17 08:06 Dose: Not Given - Problem List Review Problem List Initiated/Reviewed/Updated: Yes - My Orders Last 24 Hours: My Active Orders 05/25/17 05:00 CBC WITH AUTO DIFF [HEME] WEEKLY CRP [C-REACTIVE PROTEIN] [CHEM] WEEKLY SEDIMENTATION RATE AUTO [HEME] WEEKLY 05/25/17 05:11 CMP [COMPREHENSIVE METABOLIC PN,CMP] [CHEM] Q7D 06/01/17 05:00 CBC WITH AUTO DIFF [HEME] WEEKLY CRP [C-REACTIVE PROTEIN] [CHEM] WEEKLY SEDIMENTATION RATE AUTO [HEME] WEEKLY 06/01/17 05:11 CMP [COMPREHENSIVE METABOLIC PN,CMP] [CHEM] Q7D 06/08/17 05:00 CBC WITH AUTO DIFF [HEME] WEEKLY CRP [C-REACTIVE PROTEIN] [CHEM] WEEKLY SEDIMENTATION RATE AUTO [HEME] WEEKLY 06/08/17 05:11 CMP [COMPREHENSIVE METABOLIC PN,CMP] [CHEM] Q7D 06/15/17 05:00 CBC WITH AUTO DIFF [HEME] WEEKLY CRP [C-REACTIVE PROTEIN] [CHEM] WEEKLY SEDIMENTATION RATE AUTO [HEME] WEEKLY 06/15/17 05:11 CMP [COMPREHENSIVE METABOLIC PN,CMP] [CHEM] Q7D 06/22/17 05:00 CBC WITH AUTO DIFF [HEME] WEEKLY CRP [C-REACTIVE PROTEIN] [CHEM] WEEKLY SEDIMENTATION RATE AUTO [HEME] WEEKLY 06/22/17 05:11 CMP [COMPREHENSIVE METABOLIC PN,CMP] [CHEM] Q7D 06/29/17 05:00 CBC WITH AUTO DIFF [HEME] WEEKLY CRP [C-REACTIVE PROTEIN] [CHEM] WEEKLY SEDIMENTATION RATE AUTO [HEME] WEEKLY 06/29/17 05:11 CMP [COMPREHENSIVE METABOLIC PN,CMP] [CHEM] Q7D 05/19/17 10:20 Calcium Carbonate [Tums Extra Strength] 750 mg PO Q2H PRN 05/20/17 08:00 Potassium Chloride [Klor-Con M20] 20 meq PO DAILY
[2017-05-19] MEDS: Tamsulosin 0.4 MG Cap.ER PO SCH (20:09)
[2017-05-19] MEDS: atorvaSTATin 40 MG Tab PO SCH (20:09)
[2017-05-19] MEDS: Calcium Carbonate 750 MG Tab.Chew PO PRN (20:19)
[2017-05-20] MEDS: Sodium Chloride 0.9% 10 ML Syringe IV SCH ×5 (04:07→20:04)
[2017-05-20] MEDS: Nafcillin 2 GM Vial IV SCH ×5 (04:07→20:04)
[2017-05-20] MEDS: Heparin Sodium 100 Units/ML 3 ML Syringe IVPUSH SCH ×5 (04:07→20:04)
[2017-05-20] MEDS: Magnesium Oxide 400 MG Tab PO SCH ×2 (08:50→20:04)
[2017-05-20] MEDS: Finasteride 5 MG Tab PO SCH (08:50)
[2017-05-20] MEDS: Losartan 50 MG Tab PO SCH ×2 (08:50→20:04)
[2017-05-20] MEDS: Aspirin 81 MG Tab.EC PO SCH (08:50)
[2017-05-20] MEDS: Hydrochlorothiazide 25 MG Tab PO SCH (08:50)
[2017-05-20] MEDS: Potassium Chloride 20 MEQ Tab.ER PO SCH (08:51)
[2017-05-20] MEDS: metFORMIN 500 MG Tab PO SCH ×2 (08:51→18:14)
[2017-05-20] MEDS: Acetaminophen 325 MG Tab PO SCH ×3 (08:51→20:05)
[2017-05-20] MEDS: Metoprolol Succinate 50 MG Tab.ER PO SCH (08:52)
[2017-05-20] MEDS: Polyethylene Glycol 3350 Powder 17 GM Packet PO SCH ×2 (08:52→20:06)
[2017-05-20] MEDS: JARDIANCE 25 MG PO SCH (08:52)
[2017-05-20] MEDS: buPROPion 150 MG Tab.ER PO SCH (08:52)
[2017-05-20] MEDS: Fluticasone Propionate Nasal Spray 16 GM Bottle**OWN MED NASBOTH SCH (08:53)
[2017-05-20] MEDS: Docusate Sodium 100 MG Cap PO SCH ×2 (08:53→20:06)
[2017-05-20] MEDS: Miconazole 2% Top Powder 45 GM Container TOP SCH ×2 (08:53→20:05)
[2017-05-20] MEDS: [UNRECOGNIZED DRUG - OTHER] PO SCH (11:52)
[2017-05-20] MEDS: atorvaSTATin 40 MG Tab PO SCH (20:04)
[2017-05-20] MEDS: Tamsulosin 0.4 MG Cap.ER PO SCH (20:05)
[2017-05-21] MEDS: Sodium Chloride 0.9% 10 ML Syringe IV SCH ×7 (00:02→23:08)
[2017-05-21] MEDS: Nafcillin 2 GM Vial IV SCH ×7 (00:02→23:08)
[2017-05-21] MEDS: Heparin Sodium 100 Units/ML 3 ML Syringe IVPUSH SCH ×7 (00:04→23:09)
[2017-05-21] MEDS: Fluticasone Propionate Nasal Spray 16 GM Bottle**OWN MED NASBOTH SCH (08:51)
[2017-05-21] MEDS: JARDIANCE 25 MG PO SCH (08:51)
[2017-05-21] MEDS: Finasteride 5 MG Tab PO SCH (08:52)
[2017-05-21] MEDS: Potassium Chloride 20 MEQ Tab.ER PO SCH (08:52)
[2017-05-21] MEDS: Losartan 50 MG Tab PO SCH ×2 (08:52→19:26)
[2017-05-21] MEDS: Docusate Sodium 100 MG Cap PO SCH ×2 (08:52→19:25)
[2017-05-21] MEDS: Aspirin 81 MG Tab.EC PO SCH (08:52)
[2017-05-21] MEDS: buPROPion 150 MG Tab.ER PO SCH (08:52)
[2017-05-21] MEDS: Magnesium Oxide 400 MG Tab PO SCH ×2 (08:52→19:25)
[2017-05-21] MEDS: Metoprolol Succinate 50 MG Tab.ER PO SCH (08:52)
[2017-05-21] MEDS: Hydrochlorothiazide 25 MG Tab PO SCH (08:52)
[2017-05-21] MEDS: metFORMIN 500 MG Tab PO SCH ×3 (08:52→17:11)
[2017-05-21] MEDS: Acetaminophen 325 MG Tab PO SCH ×3 (08:53→19:26)
[2017-05-21] MEDS: Polyethylene Glycol 3350 Powder 17 GM Packet PO SCH ×2 (08:53→21:23)
[2017-05-21] MEDS: Miconazole 2% Top Powder 45 GM Container TOP SCH ×2 (08:54→19:29)
[2017-05-21] MEDS: [UNRECOGNIZED DRUG - OTHER] PO SCH (12:31)
[2017-05-21] MEDS: atorvaSTATin 40 MG Tab PO SCH (19:25)
[2017-05-21] MEDS: Tamsulosin 0.4 MG Cap.ER PO SCH (19:25)
[2017-05-22] MEDS: Sodium Chloride 0.9% 10 ML Syringe IV SCH ×5 (03:17→20:00)
[2017-05-22] MEDS: Nafcillin 2 GM Vial IV SCH ×5 (03:17→19:59)
[2017-05-22] MEDS: Heparin Sodium 100 Units/ML 3 ML Syringe IVPUSH SCH ×5 (03:18→20:00)
[2017-05-22] MEDS: Calcium Carbonate 750 MG Tab.Chew PO PRN (03:40)
[2017-05-22] MEDS: Potassium Chloride 20 MEQ Tab.ER PO SCH (08:01)
[2017-05-22] MEDS: Finasteride 5 MG Tab PO SCH (08:01)
[2017-05-22] MEDS: Hydrochlorothiazide 25 MG Tab PO SCH (08:01)
[2017-05-22] MEDS: Aspirin 81 MG Tab.EC PO SCH (08:01)
[2017-05-22] MEDS: buPROPion 150 MG Tab.ER PO SCH (08:01)
[2017-05-22] MEDS: Acetaminophen 325 MG Tab PO SCH ×3 (08:01→19:58)
[2017-05-22] MEDS: metFORMIN 500 MG Tab PO SCH ×2 (08:01→17:26)
[2017-05-22] MEDS: Metoprolol Succinate 50 MG Tab.ER PO SCH (08:02)
[2017-05-22] MEDS: Losartan 50 MG Tab PO SCH ×2 (08:02→19:58)
[2017-05-22] MEDS: Magnesium Oxide 400 MG Tab PO SCH ×2 (08:02→19:59)
[2017-05-22] MEDS: Miconazole 2% Top Powder 45 GM Container TOP SCH ×2 (08:03→19:59)
[2017-05-22] MEDS: Polyethylene Glycol 3350 Powder 17 GM Packet PO SCH ×2 (08:03→20:00)
[2017-05-22] MEDS: Docusate Sodium 100 MG Cap PO SCH ×2 (08:03→20:00)
[2017-05-22] MEDS: JARDIANCE 25 MG PO SCH (08:03)
[2017-05-22] MEDS: Fluticasone Propionate Nasal Spray 16 GM Bottle**OWN MED NASBOTH SCH (08:03)
[2017-05-22] MEDS: [UNRECOGNIZED DRUG - OTHER] PO SCH (12:17)
[2017-05-22] MEDS: Acetaminophen 500 MG Tab PO PRN (16:58)
--- NOTE | 2017-05-22 18:49 | PN ---
Progress Note for KIRTI HERNANDEZ Date: 05/22/2017 Room #: VM.221 SUBJECTIVE: This is a 56-year-old on swing bed for 6 weeks of IV nafcillin, related to a spinal abscess, status post I and D now x2 with most recent surgery on May 03, L3-4 lumbar laminectomy for epidural abscess due to MSSA. He has had some blurred vision for about the last 2 weeks with using the nafcillin. He developed a rash, he thinks maybe this morning, due to some redness over his right lacy. It is not itchy. Also some redness over his abdomen and his back. It was noticed more by nursing and aides around 4:00 p.m. today. He otherwise has not had any fever or chills. No breathing problems. He was told as a kid, he was allergic to penicillin because his mom was allergic to it, but he was trialed and has been tolerating it up until now. At one point, he was getting some vancomycin and cefepime prior to cultures returning. Otherwise, his blood pressures have been under better control. He is up, he is moving more with therapies. He is eating well, tolerating a diet. No trouble swallowing. He was getting Ancef after his first hospital stay, before he was switched to nafcillin. He has not tried any Benadryl. OBJECTIVE: VITAL SIGNS: Temperature 97.6, pulse 94, blood pressure 112/69, O2 is 98 on room air, respiratory rate 16. GENERAL: He is in no acute distress. HEART: Regular rate and rhythm. LUNGS: Sounds are clear. SKIN: Examined. No swelling in the legs. There is a fine pinpoint pinkish colored rash to the leg. Mild rash over the abdomen and upper chest. Face is spared. Very faint rash over the back. Exam consistent with a drug rash. ASSESSMENT AND PLAN: Generalized rash. He had recently received his 4:00 p.m. dose of nafcillin. The plan at this point discussed with him. I am going to try some Benadryl prior to the dosing. If he continues to have problems with rash or worsening symptoms like trouble breathing, I will make a call to Margaret. We will consider adjusting his antibiotics. Otherwise, he is doing well. Sounds like the Patel catheter will be removed next week. Dr. Floyd Cueto has been covering. MKA: 05/22/2017 17:48:20 MODL: 05/22/2017 18:06:14 /[id number]
[2017-05-22] MEDS: diphenhydrAMINE 25 MG Cap PO SCH ×2 (18:58→23:21)
[2017-05-22] MEDS: Tamsulosin 0.4 MG Cap.ER PO SCH (19:58)
[2017-05-22] MEDS: atorvaSTATin 40 MG Tab PO SCH (19:58)
[2017-05-23] MEDS: Heparin Sodium 100 Units/ML 3 ML Syringe IVPUSH SCH ×6 (00:21→20:17)
[2017-05-23] MEDS: Nafcillin 2 GM Vial IV SCH ×6 (00:21→20:17)
[2017-05-23] MEDS: Sodium Chloride 0.9% 10 ML Syringe IV SCH ×6 (00:21→20:17)
[2017-05-23] MEDS: diphenhydrAMINE 25 MG Cap PO SCH ×7 (03:20→22:59)
[2017-05-23] MEDS: Fluticasone Propionate Nasal Spray 16 GM Bottle**OWN MED NASBOTH SCH (08:19)
[2017-05-23] MEDS: Finasteride 5 MG Tab PO SCH (08:20)
[2017-05-23] MEDS: Aspirin 81 MG Tab.EC PO SCH (08:20)
[2017-05-23] MEDS: Metoprolol Succinate 50 MG Tab.ER PO SCH (08:20)
[2017-05-23] MEDS: metFORMIN 500 MG Tab PO SCH ×2 (08:20→17:56)
[2017-05-23] MEDS: Hydrochlorothiazide 25 MG Tab PO SCH (08:20)
[2017-05-23] MEDS: Magnesium Oxide 400 MG Tab PO SCH ×2 (08:20→20:16)
[2017-05-23] MEDS: Potassium Chloride 20 MEQ Tab.ER PO SCH (08:20)
[2017-05-23] MEDS: buPROPion 150 MG Tab.ER PO SCH (08:20)
[2017-05-23] MEDS: Miconazole 2% Top Powder 45 GM Container TOP SCH ×2 (08:21→20:16)
[2017-05-23] MEDS: Acetaminophen 325 MG Tab PO SCH ×3 (08:21→20:17)
[2017-05-23] MEDS: JARDIANCE 25 MG PO SCH (08:21)
[2017-05-23] MEDS: Losartan 50 MG Tab PO SCH ×2 (08:21→20:16)
[2017-05-23] MEDS: Polyethylene Glycol 3350 Powder 17 GM Packet PO SCH ×2 (08:22→20:17)
[2017-05-23] MEDS: Docusate Sodium 100 MG Cap PO SCH ×2 (08:22→20:17)
[2017-05-23] MEDS: [UNRECOGNIZED DRUG - OTHER] PO SCH (12:21)
[2017-05-23] MEDS: atorvaSTATin 40 MG Tab PO SCH (20:16)
[2017-05-23] MEDS: Tamsulosin 0.4 MG Cap.ER PO SCH (20:17)
[2017-05-24] MEDS: Nafcillin 2 GM Vial IV SCH ×7 (00:07→23:59)
[2017-05-24] MEDS: Sodium Chloride 0.9% 10 ML Syringe IV SCH ×7 (00:07→23:58)
[2017-05-24] MEDS: Heparin Sodium 100 Units/ML 3 ML Syringe IVPUSH SCH ×7 (00:08→23:59)
[2017-05-24] MEDS: diphenhydrAMINE 25 MG Cap PO SCH ×6 (02:55→23:02)
[2017-05-24] MEDS: Omeprazole 20 MG Cap.CR PO SCH (06:31)
[2017-05-24] MEDS: Aspirin 81 MG Tab.EC PO SCH (08:45)
[2017-05-24] MEDS: Acetaminophen 325 MG Tab PO SCH ×3 (08:45→20:03)
[2017-05-24] MEDS: Hydrochlorothiazide 25 MG Tab PO SCH (08:45)
[2017-05-24] MEDS: Magnesium Oxide 400 MG Tab PO SCH ×2 (08:45→20:03)
[2017-05-24] MEDS: Finasteride 5 MG Tab PO SCH (08:46)
[2017-05-24] MEDS: Potassium Chloride 20 MEQ Tab.ER PO SCH (08:46)
[2017-05-24] MEDS: metFORMIN 500 MG Tab PO SCH ×3 (08:46→17:10)
[2017-05-24] MEDS: Fluticasone Propionate Nasal Spray 16 GM Bottle**OWN MED NASBOTH SCH (08:46)
[2017-05-24] MEDS: Miconazole 2% Top Powder 45 GM Container TOP SCH ×2 (08:46→20:04)
[2017-05-24] MEDS: buPROPion 150 MG Tab.ER PO SCH (08:46)
[2017-05-24] MEDS: Docusate Sodium 100 MG Cap PO SCH ×2 (08:46→20:00)
[2017-05-24] MEDS: JARDIANCE 25 MG PO SCH (08:46)
[2017-05-24] MEDS: Polyethylene Glycol 3350 Powder 17 GM Packet PO SCH ×2 (08:46→20:04)
[2017-05-24] MEDS: Metoprolol Succinate 50 MG Tab.ER PO SCH (08:52)
[2017-05-24] MEDS: Losartan 50 MG Tab PO SCH ×2 (08:52→20:03)
[2017-05-24] MEDS: [UNRECOGNIZED DRUG - OTHER] PO SCH (12:21)
[2017-05-24] MEDS: atorvaSTATin 40 MG Tab PO SCH (20:03)
[2017-05-24] MEDS: Tamsulosin 0.4 MG Cap.ER PO SCH (20:04)
[2017-05-25] MEDS: Heparin Sodium 100 Units/ML 3 ML Syringe IVPUSH SCH ×4 (01:21→18:19)
[2017-05-25] MEDS: diphenhydrAMINE 25 MG Cap PO SCH ×4 (02:56→18:20)
[2017-05-25] MEDS: Sodium Chloride 0.9% 10 ML Syringe IV SCH ×4 (03:48→18:18)
[2017-05-25] MEDS: Nafcillin 2 GM Vial IV SCH ×2 (03:49→09:54)
[2017-05-25] MEDS: Omeprazole 20 MG Cap.CR PO SCH (06:28)
[2017-05-25] MEDS: Hydrochlorothiazide 25 MG Tab PO SCH (08:08)
[2017-05-25] MEDS: Docusate Sodium 100 MG Cap PO SCH ×2 (08:08→19:40)
[2017-05-25] MEDS: Potassium Chloride 20 MEQ Tab.ER PO SCH (08:09)
[2017-05-25] MEDS: Aspirin 81 MG Tab.EC PO SCH (08:09)
[2017-05-25] MEDS: Metoprolol Succinate 50 MG Tab.ER PO SCH (08:10)
[2017-05-25] MEDS: Magnesium Oxide 400 MG Tab PO SCH ×2 (08:10→19:39)
[2017-05-25] MEDS: Acetaminophen 325 MG Tab PO SCH ×3 (08:11→19:38)
[2017-05-25] MEDS: buPROPion 150 MG Tab.ER PO SCH (08:11)
[2017-05-25] MEDS: metFORMIN 500 MG Tab PO SCH (08:12)
[2017-05-25] MEDS: Miconazole 2% Top Powder 45 GM Container TOP SCH ×2 (08:12→19:39)
[2017-05-25] MEDS: Finasteride 5 MG Tab PO SCH (08:12)
[2017-05-25] MEDS: Polyethylene Glycol 3350 Powder 17 GM Packet PO SCH ×2 (08:13→19:40)
[2017-05-25] MEDS: Fluticasone Propionate Nasal Spray 16 GM Bottle**OWN MED NASBOTH SCH (08:13)
[2017-05-25] MEDS: JARDIANCE 25 MG PO SCH (08:13)
[2017-05-25] MEDS ORDERED: diphenhydrAMINE 25 MG Cap PO ONE (08:28)
[2017-05-25] MEDS: Losartan 50 MG Tab PO SCH (08:29)
[2017-05-25 09:08] LABS: CHLORIDE,CL 98 mmol/L (98-107); SODIUM,NA 136 mmol/L (136-145)
[2017-05-25] MEDS ORDERED: diphenhydrAMINE 25 MG Cap PO SCH (10:15)
[2017-05-25] MEDS ORDERED: Lactated Ringers 1,000 ML IV SCH (10:15)
--- NOTE | 2017-05-25 11:30 | PN ---
Progress Note for KIRTI HERNANDEZ Date: 05/25/2017 Room #: VM.221 HISTORY OF PRESENT ILLNESS: This is a 56-year-old on swing bed, now a 2nd admission on 05/06 for a spinal abscess due to MSSA. He is status post his 2nd surgery on 05/03. Otherwise, he was seen by myself on Thursday. He had just started getting a slight rash which was suspected to be due to the nafcillin. We started some Benadryl prior to the nafcillin, but he noticed more itching on Thursday. He has had some tongue prickling but no throat swelling or breathing trouble. He has had no fevers, but the rash is more red and bright today and he was tachycardic this morning at 1:30. However, he did not get his metoprolol yesterday due to lower blood pressures. I was asked about it, and I did okay it. PHYSICAL EXAMINATION: Vital Signs: Temperature 98.4, pulse rechecked after Benadryl was 106, blood pressure 106/60, respiratory rate 16, O2 of 97% on room air. General: He is in no acute distress. His skin is covered with a bright red rash, especially in the upper chest. There is fine papules spread down into the lower arms. His face is spared. Heart: Regular rate and rhythm. Lungs: Sounds are clear to auscultation bilaterally without crackles, wheezes. Extremities: Warm and dry. No edema. Patel is still in place. Mental status: He is alert and orientated x3. LABORATORY DATA: Due to be drawn for weekly labs this morning. White count 5.2, hemoglobin 12.1, platelets 251, eosinophils 7. Sodium 136, potassium 3.6, chloride 98, bicarb 25, BUN 29, creatinine 1 up from 0.7, glucose 196, lactic 2.6, calcium 8.2, ALT 11, AST 18, CRP 7.2, albumin 2.5. ASSESSMENT AND PLAN: 1. MSSA spinal abscess due to MSSA on 6 weeks of IV antibiotics again since 05/03. Discussed with Infectious Disease. We will switch him over to vancomycin. Pharmacy to help dosing but 1250 x 1. Potentially, we will even switch this to something else before his next dose would be due tomorrow. 2. Generalized rash, likely drug reaction due to nafcillin. We have stopped that. We will continue with regular Benadryl 4 times today. I am going to hold off on any steroids due to the mildly elevated lactic acid. His rash does seem to be improving. 3. Elevated lactic acid and tachycardia. The patient does not appear to be septic. His incision looks well. There is no pain or fevers. At this point, we will just monitor, repeat lactic acid within 6 hours. 4. Urinary retention. Patel was due to come out today, but plan would be to remove it tomorrow, as today is a holiday. There will be more staff here and we are working on his acute problem today. 5. Essential hypertension, now under good control with actually some hypotension. I am going to cut back to once daily on his Cozaar. We will continue his Toprol. 6. Diabetes on metformin will hold that and his Farxiga like medication and monitor BS PLAN: The patient will be on swing bed and monitoring things. If his condition gets worse, we may need IV fluids and IV steroids. Otherwise, pharmacy has been contacted and will get the vanc goal range. His primary infectious Disease doctor can make further adjustments tomorrow. GAIL: 05/25/2017 10:06:32 MODL: 05/25/2017 11:23:14 /[id number] CLARIBEL
[2017-05-25] MEDS: [UNRECOGNIZED DRUG - OTHER] PO SCH (12:06)
[2017-05-25] MEDS: Sodium Chloride 0.9% 10 ML Syringe IV PRN (19:36)
[2017-05-25] MEDS: atorvaSTATin 40 MG Tab PO SCH (19:38)
[2017-05-25] MEDS: Tamsulosin 0.4 MG Cap.ER PO SCH (19:38)
[2017-05-26] MEDS: diphenhydrAMINE 25 MG Cap PO SCH ×3 (01:11→12:32)
[2017-05-26] MEDS: Sodium Chloride 0.9% 10 ML Syringe IV SCH ×2 (01:58→10:43)
[2017-05-26] MEDS: Heparin Sodium 100 Units/ML 3 ML Syringe IVPUSH SCH ×2 (02:00→10:43)
[2017-05-26] MEDS: Omeprazole 20 MG Cap.CR PO SCH (06:33)
[2017-05-26] MEDS ORDERED: Losartan 50 MG Tab PO SCH ×2 (08:00→20:00)
[2017-05-26] MEDS: Magnesium Oxide 400 MG Tab PO SCH (08:10)
[2017-05-26] MEDS: Docusate Sodium 100 MG Cap PO SCH (08:10)
[2017-05-26] MEDS: Aspirin 81 MG Tab.EC PO SCH (08:10)
[2017-05-26] MEDS: Acetaminophen 325 MG Tab PO SCH ×3 (08:10→11:07)
[2017-05-26] MEDS: Potassium Chloride 20 MEQ Tab.ER PO SCH (08:10)
[2017-05-26] MEDS: buPROPion 150 MG Tab.ER PO SCH (08:10)
[2017-05-26] MEDS: Metoprolol Succinate 50 MG Tab.ER PO SCH (08:10)
[2017-05-26] MEDS: Finasteride 5 MG Tab PO SCH (08:10)
[2017-05-26] MEDS: Miconazole 2% Top Powder 45 GM Container TOP SCH (08:11)
[2017-05-26] MEDS: Fluticasone Propionate Nasal Spray 16 GM Bottle**OWN MED NASBOTH SCH (08:11)
[2017-05-26] MEDS: Polyethylene Glycol 3350 Powder 17 GM Packet PO SCH (08:12)
[2017-05-26] MEDS ORDERED: diphenhydrAMINE 25 MG Cap PO PRN (08:19)
[2017-05-26 10:08] LABS: CHLORIDE,CL 95 mmol/L (98-107); SODIUM,NA 132 mmol/L (136-145)
[2017-05-26] MEDS: [UNRECOGNIZED DRUG - OTHER] PO SCH ×2 (10:43→11:07)
[2017-05-26] MEDS ORDERED: Insulin Detemir 100 Units/ML 3 ML Pen SUBCUT SCH (10:45)
--- NOTE | 2017-05-26 12:11 | PCM.DCSUM1 ---
Discharge Summary - Hospital Course Free Text/Narrative:: Complicated patient with only partially treated large MSSA spinal abscess dx end of Feb; wasn't felt he could tolerate cervical hardware that would be needed as likely prosthesis would become infected. Failed Ancef early Apr, got lumbar wound abscess, can't see he had imaging to determine depth of extension. Sent back to on naficillin as wound grew MSSA again. Was doing well then diffuse red rash this weekend, possibly from drug/naficillin. Vanc started. BP running low no2w 90-100 systolic, tachycardiac at 110, low-grade temp 100F, lactate to 4.9. Past 2w Crp from <2 to 25 to 70 now. Creat from 0.7 to 1.2. Not much response to liter of LR, otherwise tolerating oral. Transfer to [place], spoke with hospitalist and ID Dr Shi. Likely needs repeat MRI to determine current extent of abscess and then discuss about treatment options, surgical vs continue ABX but seems to be failing the latter. Stable for transfer by S. - Discharge Data Discharge Date: 05/26/17 Discharge Disposition: DC/Tfer to Acute Hospital 02 Condition: Good - Patient Summary/Data Consults: Consultations 05/25/17 09:59 Pharmacy Consult [Consult to Pharmacy] [CONS] Routine 05/05/17 14:38 PT Evaluation and Treatment [CONS] Routine 05/05/17 14:39 OT Evaluation and Treatment [CONS] Routine - Discharge Plan Home Medications: Home Meds Aspirin [Halfprin] 81 mg PO DAILY 09/04/13 [History] Clobetasol [Clobetasol Propionate 0.05%] 1 gram TOP BID 09/04/13 [History] Metoprolol Succinate [Toprol XL 100mg] 100 mg PO DAILY 09/04/13 [History] atorvaSTATin [Lipitor] 40 mg PO BEDTIME 09/04/13 [History] buPROPion [buPROPion XL] 150 mg PO DAILY 09/04/13 [History] metFORMIN [Glucophage] 1,000 mg PO BIDM 09/04/13 [History] Docusate Sodium [Colace] 100 mg PO BID 04/09/17 [History] Empagliflozin [Jardiance] 25 mg PO DAILY 04/09/17 [History] Fluticasone Propionate [Flonase] 1 spray NASBOTH DAILY 04/09/17 [History] Niacinamide [Niacin] 1,000 mg PO DAILY 04/09/17 [History] Non-Formulary Medication [NF Drug] 50 - 100 mg PO ASDIRECTED PRN 04/09/17 [ History] Polyethylene Glycol 3350 [MiraLAX] 17 gm PO Q12H 04/09/17 [History] Tamsulosin [Flomax] 0.4 mg PO BEDTIME 04/09/17 [History] oxyCODONE 5 mg PO Q4H PRN 04/09/17 [History] Acetaminophen [Tylenol] 650 mg PO TID tablet 05/02/17 [Rx] Finasteride [Proscar] 5 mg PO DAILY tablet 05/02/17 [Rx] Hydrochlorothiazide 25 mg PO DAILY tablet 05/02/17 [Rx] Losartan [Cozaar] 50 mg PO BID tablet 05/02/17 [Rx] Magnesium Oxide 400 mg PO BID tablet 05/02/17 [Rx] Enoxaparin [Lovenox] 40 mg SUBCUT DAILY 05/05/17 [History] Miconazole [Desenex 2%] 1 applic TOP BID 05/05/17 [History] Nafcillin 2 gm IV Q4H 05/05/17 [History] Non-Formulary Medication [NF Drug] 2 tab PO DAILY 05/05/17 [History] - Patient Data Vitals - Most Recent: Last Vital Signs Temp 36.1 C 05/26/17 10:00 Pulse 111 H 05/26/17 10:00 Resp 24 H 05/26/17 05:52 BP 95/53 L 05/26/17 10:00 Pulse Ox 96 05/26/17 10:00 Weight - Most Recent: 76.294 kg I&O - Last 24 hours: Intake & Output 05/25/17 05/26/17 05/26/17 22:59 06:59 14:59 Intake Total 100 250 240 Output Total 900 675 Balance -800 -425 240 Lab Results - Last 24 hrs: Laboratory Results - last 24 hr 05/25/17 05/25/17 05/25/17 Range/Units 11:50 13:20 17:08 Sodium (136-145) mmol/L Potassium (3.5-5.1) mmol/L Chloride (98-107) mmol/L Carbon Dioxide (21-32) mmol/L BUN (7-18) mg/dL Creatinine (0.70-1.30) mg/dL Est Cr Clr Drug Dosing mL/min Estimated GFR (MDRD) Glucose (74-106) mg/dL POC Glucose 129 H (74-106) mg/dL Lactic Acid 5.8 H* (0.4-2.0) mmol/L Calcium (8.5-10.1) mg/dL Urine RBC 5-10 H (NOT SEEN) /HPF Urine WBC 40-50 H (NOT SEEN) /HPF Ur Transition Epith Cell Few H (NEGATIVE) /HPF Ur Renal Epithelial Cell Few H (NEGATIVE) /HPF Urine Bacteria Moderate H (NEGATIVE) /HPF Urine Yeast (Budding) Few Vancomycin Trough (5-10) ug/mL 05/25/17 05/25/17 05/26/17 Range/Units 17:10 19:48 06:35 Sodium (136-145) mmol/L Potassium (3.5-5.1) mmol/L Chloride (98-107) mmol/L Carbon Dioxide (21-32) mmol/L BUN (7-18) mg/dL Creatinine (0.70-1.30) mg/dL Est Cr Clr Drug Dosing mL/min Estimated GFR (MDRD) Glucose (74-106) mg/dL POC Glucose 125 H 120 H (74-106) mg/dL Lactic Acid 5.0 H* (0.4-2.0) mmol/L Calcium (8.5-10.1) mg/dL Urine RBC (NOT SEEN) /HPF Urine WBC (NOT SEEN) /HPF Ur Transition Epith Cell (NEGATIVE) /HPF Ur Renal Epithelial Cell (NEGATIVE) /HPF Urine Bacteria (NEGATIVE) /HPF Urine Yeast (Budding) Vancomycin Trough (5-10) ug/mL 05/26/17 05/26/17 05/26/17 Range/Units 09:42 09:42 09:42 Sodium 132 L (136-145) mmol/L Potassium 3.9 (3.5-5.1) mmol/L Chloride 95 L (98-107) mmol/L Carbon Dioxide 22 (21-32) mmol/L BUN 26 H (7-18) mg/dL Creatinine 1.2 (0.70-1.30) mg/dL Est Cr Clr Drug Dosing 69.55 mL/min Estimated GFR (MDRD) > 60 Glucose 238 H (74-106) mg/dL POC Glucose (74-106) mg/dL Lactic Acid 4.9 H* (0.4-2.0) mmol/L Calcium 8.3 L (8.5-10.1) mg/dL Urine RBC (NOT SEEN) /HPF Urine WBC (NOT SEEN) /HPF Ur Transition Epith Cell (NEGATIVE) /HPF Ur Renal Epithelial Cell (NEGATIVE) /HPF Urine Bacteria (NEGATIVE) /HPF Urine Yeast (Budding) Vancomycin Trough 16 H (5-10) ug/mL 05/26/17 Range/Units 10:45 Sodium (136-145) mmol/L Potassium (3.5-5.1) mmol/L Chloride (98-107) mmol/L Carbon Dioxide (21-32) mmol/L BUN (7-18) mg/dL Creatinine (0.70-1.30) mg/dL Est Cr Clr Drug Dosing mL/min Estimated GFR (MDRD) Glucose (74-106) mg/dL POC Glucose 226 H (74-106) mg/dL Lactic Acid (0.4-2.0) mmol/L Calcium (8.5-10.1) mg/dL Urine RBC (NOT SEEN) /HPF Urine WBC (NOT SEEN) /HPF Ur Transition Epith Cell (NEGATIVE) /HPF Ur Renal Epithelial Cell (NEGATIVE) /HPF Urine Bacteria (NEGATIVE) /HPF Urine Yeast (Budding) Vancomycin Trough (5-10) ug/mL Med Orders - Current: Current Medications Acetaminophen (Tylenol) 650 mg PO TID [facility] Last Admin: 05/26/17 11:07 Dose: Not Given Acetaminophen (Tylenol Extra Strength) 500 mg PO BID PRN PRN Reason: Pain Last Admin: 05/22/17 16:58 Dose: 500 mg Alteplase, Recombinant (Cathflo Activase) 2 mg IV ASDIRECTED PRN PRN Reason: OCCLUDED PICC Aspirin (Halfprin) 81 mg PO DAILY [facility] Last Admin: 05/26/17 08:10 Dose: 81 mg Atorvastatin Calcium (Lipitor) 40 mg PO BEDTIME [facility] Last Admin: 05/25/17 19:38 Dose: 40 mg Bupropion HCl (Wellbutrin Xl) 150 mg PO DAILY [facility] Last Admin: 05/26/17 08:10 Dose: 150 mg Calcium Carbonate/Glycine (Tums Extra Strength) 750 mg PO Q2H PRN PRN Reason: UPSET STOMACH/HEARTBURN Last Admin: 05/22/17 03:40 Dose: 750 mg Diphenhydramine HCl (Benadryl) 25 mg PO Q6H [facility] Last Admin: 05/26/17 06:33 Dose: 25 mg Diphenhydramine HCl (Benadryl) 25 mg PO Q4H PRN PRN Reason: Rash Docusate Sodium (Colace) 100 mg PO BID [facility] Last Admin: 05/26/17 08:10 Dose: 100 mg Finasteride (Proscar) 5 mg PO DAILY [facility] Last Admin: 05/26/17 08:10 Dose: 5 mg Fluticasone Propionate (Flonase) 0 gm NASBOTH DAILY [facility] Last Admin: 05/26/17 08:11 Dose: 1 spray Heparin Sodium (Porcine) (Heparin Lock Flush 100 Units/Ml) 300 unit IVPUSH ASDIRECTED PRN PRN Reason: Keep Vein Open Last Admin: 05/24/17 00:07 Dose: 300 unit Heparin Sodium (Porcine) (Heparin Lock Flush 100 Units/Ml) 300 unit IVPUSH Q8H [facility] Last Admin: 05/26/17 10:43 Dose: 300 unit Vancomycin HCl 1,250 mg/ (Sodium Chloride) 250 mls @ 200 mls/hr IV Q24H [facility] Vancomycin HCl 1 gm/ Sodium (Chloride) 250 mls @ 250 mls/hr IV Q8H [facility] Last Admin: 05/26/17 10:42 Dose: 250 mls/hr Insulin Detemir (Levemir) 5 unit SUBCUT DAILY [facility] Losartan Potassium (Cozaar) 50 mg PO BEDTIME [facility] Magnesium Oxide (Magnesium Oxide) 400 mg PO BID [facility] Last Admin: 05/26/17 08:10 Dose: 400 mg Metformin HCl (Glucophage) 1,000 mg PO BIDMEALS [facility] Last Admin: 05/25/17 08:12 Dose: 1,000 mg Metoprolol Succinate (Toprol Xl) 100 mg PO DAILY [facility] Last Admin: 05/26/17 08:10 Dose: 100 mg Miconazole (Desenex 2%) 0 gm TOP BID [facility] Last Admin: 05/26/17 08:11 Dose: 1 applic Digest. Adv Probiotic Gummy Own Med 2 tab PO DAILY@1200 [facility] Last Admin: 05/26/17 11:07 Dose: Not Given Omeprazole (Omeprazole) 20 mg PO DAILY@07 [facility] Last Admin: 05/26/17 06:33 Dose: 20 mg Polyethylene Glycol (Miralax) 17 gm PO Q12H [facility] Last Admin: 05/26/17 08:12 Dose: Not Given Potassium Chloride (Klor-Con M20) 20 meq PO DAILY [facility] Last Admin: 05/26/17 08:10 Dose: 20 meq Sodium Chloride (Saline Flush) 10 ml IV ASDIRECTED PRN PRN Reason: Keep Vein Open Last Admin: 05/25/17 19:36 Dose: 10 ml Sodium Chloride (Saline Flush) 10 ml IV Q8H [facility] Last Admin: 05/26/17 10:43 Dose: 10 ml Tamsulosin HCl (Flomax) 0.4 mg PO BEDTIME [facility] Last Admin: 05/25/17 19:38 Dose: 0.4 mg Discontinued Medications Cefazolin Sodium (Ancef) 2 gm IV Q8H [facility] Stop: 05/06/17 08:01 Last Admin: 05/06/17 08:08 Dose: 2 gm Clobetasol Propionate (Clobetasol 0.05%) 0 gm TOP BID [facility] Last Admin: 05/06/17 08:11 Dose: Not Given Diphenhydramine HCl (Benadryl) 25 mg PO Q4H [facility] Last Admin: 05/23/17 03:20 Dose: 25 mg Diphenhydramine HCl (Benadryl) 25 mg PO Q4H [facility] Last Admin: 05/25/17 06:28 Dose: 25 mg Diphenhydramine HCl (Benadryl) 25 mg PO ONETIME ONE Stop: 05/25/17 08:29 Last Admin: 05/25/17 08:20 Dose: 25 mg Diphenhydramine HCl (Benadryl) 25 mg PO Q6H [facility] Stop: 05/26/17 23:00 Last Admin: 05/25/17 10:36 Dose: Not Given Enoxaparin Sodium (Lovenox) 40 mg SUBCUT DAILY [facility] Last Admin: 05/19/17 07:37 Dose: 40 mg Heparin Sodium (Porcine) (Heparin Lock Flush 100 Units/Ml) 300 unit IVPUSH Q8H [facility] Stop: 05/06/17 08:01 Last Admin: 05/06/17 08:09 Dose: 300 unit Heparin Sodium (Porcine) (Heparin Lock Flush 100 Units/Ml) 300 unit IVPUSH Q4H [facility] Last Admin: 05/25/17 10:05 Dose: Not Given Hydrochlorothiazide (Hydrochlorothiazide) 25 mg PO DAILY [facility] Last Admin: 05/25/17 08:08 Dose: 25 mg Lactated Ringer's (Ringers, Lactated) 1,000 mls @ 150 mls/hr IV ASDIRECTED [facility] Stop: 05/25/17 16:54 Last Admin: 05/25/17 10:17 Dose: 150 mls/hr Losartan Potassium (Cozaar) 50 mg PO BID [facility] Last Admin: 05/25/17 08:29 Dose: Not Given Losartan Potassium (Cozaar) 50 mg PO DAILY [facility] Metformin HCl (Glucophage) 1,000 mg PO BIDM [facility] Metformin HCl (Glucophage) 1,000 mg PO BIDM [facility] Last Admin: 05/13/17 08:10 Dose: 1,000 mg Nafcillin Sodium (Nafcillin) 2 gm IV Q4H [facility] Last Admin: 05/25/17 09:54 Dose: Not Given Jardiance 25 Mg (Own Med) 25 mg PO DAILY [facility] Last Admin: 05/25/17 08:13 Dose: 25 mg Digest. Adv Probiotic Gummy Own Med 2 tab PO DAILY [facility] Last Admin: 05/07/17 09:28 Dose: Not Given Oxycodone HCl (Oxycodone) 5 mg PO Q4H PRN PRN Reason: Pain (severe 7-10) Last Admin: 05/10/17 10:41 Dose: 5 mg Potassium Chloride (Klor-Con M20) 20 meq PO BIDMEALS [facility] Last Admin: 05/19/17 07:40 Dose: 20 meq Sodium Chloride (Saline Flush) 10 ml IV Q8H [facility] Last Admin: 05/07/17 08:06 Dose: Not Given Sodium Chloride (Saline Flush) 10 ml IV Q4H [facility] Last Admin: 05/25/17 10:05 Dose: Not Given *Q Meaningful Use (DIS) - VTE *Q VTE Criteria *Q: - Stroke *Q Stroke Criteria *Q: - AMI *Q AMI Criteria *Q:
[2017-05-26] MEDS ORDERED: Sodium Chloride 0.9% 1,000 ML IV ONE (12:12)
[2017-05-26] MEDS ORDERED: Cefepime 1 GM Vial IV ONE (12:12)
== END 2017-05-26 12:50 | disposition short-term general hospital (02) | DRG 49 ==
LOC: VM.MS 15:06
PROVIDERS: ADMIT Family Medicine; ATTEND Family Medicine
DX: G06.2 Extradural and subdural abscess, unspecified (principal); B95.61 Methicillin susceptible Staphylococcus aureus infection as the cause of diseases classified elsewhere; R74.0 Nonspecific elevation of levels of transaminase and lactic acid dehydrogenase [LDH]; R00.0 Tachycardia, unspecified; N40.1 Benign prostatic hyperplasia with lower urinary tract symptoms; R33.8 Other retention of urine; Z93.6 Other artificial openings of urinary tract status; I10 Essential (primary) hypertension; E11.40 Type 2 diabetes mellitus with diabetic neuropathy, unspecified; Z79.84 Long term (current) use of oral hypoglycemic drugs; L27.0 Generalized skin eruption due to drugs and medicaments taken internally; T36.0X5A Adverse effect of penicillins, initial encounter; Y92.239 Unspecified place in hospital as the place of occurrence of the external cause; G89.29 Other chronic pain; M54.9 Dorsalgia, unspecified; E78.5 Hyperlipidemia, unspecified; F32.9 Major depressive disorder, single episode, unspecified; J45.909 Unspecified asthma, uncomplicated; E66.9 Obesity, unspecified; Z88.0 Allergy status to penicillin; Z88.8 Allergy status to other drugs, medicaments and biological substances; Z91.048 Other nonmedicinal substance allergy status; Z79.01 Long term (current) use of anticoagulants; Z79.82 Long term (current) use of aspirin; Z79.899 Other long term (current) drug therapy; R50.9 Fever, unspecified; I95.9 Hypotension, unspecified
CPT/HCPCS: 36415; 80048; 80053; 80202; 81001; 82962; 83605; 84450; 85025; 85652; 86140; 87086; 87088; 97110-GO; 97110-GP; 97116-GP; 97161-GP; 97168-GO; 97530-GP; A9270-GY; J0690; J0692; J1642; J1650; J1815-GY; J3370; J7030; J7050; J7120; S0032

== ENCOUNTER 2017-05-29 12:30 | Inpatient (IN) | payer OTHER, BC ==
[2017-05-29] MEDS ORDERED: Vancomycin 1.75 GM in Sodium Chloride 0.9% 500 ML IV ONE (14:15)
[2017-05-29] MEDS: Sodium Chloride 0.9% 10 ML Syringe IV PRN (14:40)
[2017-05-29] MEDS ORDERED: diphenhydrAMINE 25 MG Cap PO PRN (15:20)
[2017-05-29] MEDS ORDERED: diphenhydrAMINE 25 MG Cap PO ONE (15:30)
[2017-05-29] MEDS ORDERED: Heparin Sodium 100 Units/ML 3 ML Syringe IVPUSH ONE (17:00)
[2017-05-29] MEDS ORDERED: Hydrochlorothiazide 25 MG Tab PO ONE (18:23)
[2017-05-29] MEDS ORDERED: Losartan 50 MG Tab PO ONE (18:23)
[2017-05-29] MEDS ORDERED: Ondansetron 4 MG/2 ML SDV IV PRN (18:32)
[2017-05-29] MEDS: Acetaminophen 325 MG Tab PO SCH (19:50)
[2017-05-29] MEDS: atorvaSTATin 40 MG Tab PO SCH (19:50)
[2017-05-30] MEDS: diphenhydrAMINE 25 MG Cap PO SCH ×3 (00:38→23:26)
[2017-05-30] MEDS: Sodium Chloride 0.9% 10 ML Syringe IV PRN ×3 (00:38→23:28)
[2017-05-30] MEDS ORDERED: Vancomycin 1.75 GM in Sodium Chloride 0.9% 500 ML IV ONE ×3 (01:00→23:00)
[2017-05-30] MEDS ORDERED: Heparin Sodium 100 Units/ML 3 ML Syringe IVPUSH ONE ×2 (04:00→15:00)
[2017-05-30] MEDS ORDERED: Calcium Carbonate 750 MG Tab.Chew PO PRN (09:15)
[2017-05-30] MEDS: buPROPion 150 MG Tab.ER PO SCH (10:17)
[2017-05-30] MEDS: Multivitamins with Iron/Calcium/Folic Acid/Minerals Tab PO SCH (10:17)
[2017-05-30] MEDS: Fluticasone Propionate Nasal Spray 16 GM Bottle NASBOTH PRN (10:17)
[2017-05-30] MEDS: Metoprolol Succinate 25 MG Tab.ER PO SCH (10:17)
[2017-05-30] MEDS: Polyethylene Glycol 3350 Powder 17 GM Packet PO SCH ×2 (10:18→20:56)
[2017-05-30] MEDS: Acetaminophen 325 MG Tab PO SCH ×3 (10:18→20:55)
[2017-05-30] MEDS: Aspirin 81 MG Tab.EC PO SCH (10:18)
--- NOTE | 2017-05-30 10:54 | PCM.SN ---
- Free Text/Narrative Note: S: Patient seen today given multiple questions regarding his medications since return from both the patient and nursing. He is overall feeling well. His main concern is his blood pressure medications as well as the medications for GERD. Apparently he was on omeprazole and tums while here last time. O: He is alert and in no acute distress. Moist mucous membranes. Tachycardic with regular rhythm; no m/r/g. Lungs CTAB. Abdomen soft, nontender, nondistended. A/P: His discharge medication list faxed from [facility] is reviewed and his medication list here was adjusted to match that discharge list. Additionally per the patient's request, omeprazole and tums added in. Dr. Cueto to see the patient next week and make adjustments as indicated.
[2017-05-30] MEDS: EMPAGLIFLOZIN 25 MG PO SCH (15:46)
[2017-05-30] MEDS: metFORMIN 500 MG Tab PO SCH (17:08)
[2017-05-30] MEDS: Docusate Sodium 100 MG Cap PO SCH (20:55)
[2017-05-30] MEDS: atorvaSTATin 40 MG Tab PO SCH (20:55)
[2017-05-30] MEDS: Tamsulosin 0.4 MG Cap.ER PO SCH (20:55)
[2017-05-30] MEDS: Magnesium Oxide 400 MG Tab PO SCH (20:55)
[2017-05-30] MEDS: Miconazole 2% Top Powder 45 GM Container TOP SCH (20:56)
[2017-05-31] MEDS ORDERED: Heparin Sodium 100 Units/ML 3 ML Syringe IVPUSH ONE (02:00)
[2017-05-31] MEDS: Sodium Chloride 0.9% 10 ML Syringe IV PRN ×2 (02:33→22:16)
[2017-05-31] MEDS: Miconazole 2% Top Powder 45 GM Container TOP SCH ×2 (07:34→20:24)
[2017-05-31] MEDS: Aspirin 81 MG Tab.EC PO SCH (07:35)
[2017-05-31] MEDS: Metoprolol Succinate 25 MG Tab.ER PO SCH (07:35)
[2017-05-31] MEDS: Niacin 500 MG Tab.ER PO SCH (07:35)
[2017-05-31] MEDS: Magnesium Oxide 400 MG Tab PO SCH ×2 (07:35→20:23)
[2017-05-31] MEDS: Multivitamins with Iron/Calcium/Folic Acid/Minerals Tab PO SCH (07:35)
[2017-05-31] MEDS: Finasteride 5 MG Tab PO SCH (07:36)
[2017-05-31] MEDS: Docusate Sodium 100 MG Cap PO SCH ×2 (07:36→20:24)
[2017-05-31] MEDS: Acetaminophen 325 MG Tab PO SCH ×3 (07:36→20:23)
[2017-05-31] MEDS: Omeprazole 20 MG Cap.CR PO SCH (07:36)
[2017-05-31] MEDS: metFORMIN 500 MG Tab PO SCH ×2 (07:36→17:10)
[2017-05-31] MEDS: buPROPion 150 MG Tab.ER PO SCH (07:36)
[2017-05-31] MEDS: EMPAGLIFLOZIN 25 MG PO SCH (07:37)
[2017-05-31] MEDS: Fluticasone Propionate Nasal Spray 16 GM Bottle NASBOTH PRN (07:38)
[2017-05-31] MEDS: Polyethylene Glycol 3350 Powder 17 GM Packet PO SCH (09:14)
[2017-05-31] MEDS: diphenhydrAMINE 25 MG Cap PO SCH ×2 (09:44→22:16)
[2017-05-31] MEDS: Vancomycin 1.75 GM in Sodium Chloride 0.9% 500 ML IV SCH ×2 (09:44→22:16)
[2017-05-31] MEDS: Heparin Sodium 100 Units/ML 3 ML Syringe IVPUSH SCH (12:55)
[2017-05-31] MEDS: Tamsulosin 0.4 MG Cap.ER PO SCH (20:23)
[2017-05-31] MEDS: atorvaSTATin 40 MG Tab PO SCH (20:23)
[2017-06-01] MEDS: Sodium Chloride 0.9% 10 ML Syringe IV PRN ×2 (01:37→13:30)
[2017-06-01] MEDS: Heparin Sodium 100 Units/ML 3 ML Syringe IVPUSH SCH ×2 (01:38→13:30)
[2017-06-01] MEDS: Fluticasone Propionate Nasal Spray 16 GM Bottle NASBOTH PRN (07:32)
[2017-06-01] MEDS: Niacin 500 MG Tab.ER PO SCH ×2 (07:32→07:34)
[2017-06-01] MEDS: Miconazole 2% Top Powder 45 GM Container TOP SCH ×2 (07:32→19:14)
[2017-06-01] MEDS: EMPAGLIFLOZIN 25 MG PO SCH (07:32)
[2017-06-01] MEDS: Docusate Sodium 100 MG Cap PO SCH ×2 (07:33→19:14)
[2017-06-01] MEDS: Aspirin 81 MG Tab.EC PO SCH (07:33)
[2017-06-01] MEDS: metFORMIN 500 MG Tab PO SCH ×2 (07:33→17:35)
[2017-06-01] MEDS: Acetaminophen 325 MG Tab PO SCH ×2 (07:33→12:16)
[2017-06-01] MEDS: buPROPion 150 MG Tab.ER PO SCH (07:33)
[2017-06-01] MEDS: Finasteride 5 MG Tab PO SCH (07:33)
[2017-06-01] MEDS: Omeprazole 20 MG Cap.CR PO SCH (07:33)
[2017-06-01] MEDS: Metoprolol Succinate 25 MG Tab.ER PO SCH (07:33)
[2017-06-01] MEDS: Multivitamins with Iron/Calcium/Folic Acid/Minerals Tab PO SCH (07:33)
[2017-06-01] MEDS: Magnesium Oxide 400 MG Tab PO SCH ×2 (07:33→19:14)
[2017-06-01] MEDS ORDERED: Alteplase 2 MG Vial IV PRN (09:46)
[2017-06-01] MEDS: diphenhydrAMINE 25 MG Cap PO SCH ×2 (10:40→23:15)
[2017-06-01] MEDS: Vancomycin 1.75 GM in Sodium Chloride 0.9% 500 ML IV SCH (10:40)
[2017-06-01 10:42] LABS: CHLORIDE,CL 107 mmol/L (98-107); SODIUM,NA 144 mmol/L (136-145)
[2017-06-01] MEDS ORDERED: Vancomycin 1.5 GM in Sodium Chloride 0.9% 500 ML IV SCH (10:49)
[2017-06-01] MEDS: atorvaSTATin 40 MG Tab PO SCH (19:14)
[2017-06-01] MEDS: Tamsulosin 0.4 MG Cap.ER PO SCH (19:14)
[2017-06-02] MEDS: Sodium Chloride 0.9% 10 ML Syringe IV PRN ×5 (01:05→23:50)
[2017-06-02] MEDS: Heparin Sodium 100 Units/ML 3 ML Syringe IVPUSH PRN (01:05)
[2017-06-02] MEDS: Heparin Sodium 100 Units/ML 3 ML Syringe IVPUSH SCH ×4 (02:34→23:50)
[2017-06-02] MEDS ORDERED: Vancomycin 1.5 GM in Sodium Chloride 0.9% 500 ML IV ONE (04:00)
[2017-06-02] MEDS: Omeprazole 20 MG Cap.CR PO SCH (07:39)
[2017-06-02] MEDS: SODIUM CHLORIDE 0.9% IV SCH ×2 (07:41→20:47)
[2017-06-02] MEDS: VANCOMYCIN IV SCH ×2 (07:41→20:47)
[2017-06-02] MEDS: diphenhydrAMINE 25 MG Cap PO SCH ×2 (07:42→20:09)
[2017-06-02] MEDS: EMPAGLIFLOZIN 25 MG PO SCH (07:46)
[2017-06-02] MEDS: Niacin 500 MG Tab.ER PO SCH (07:47)
[2017-06-02] MEDS: buPROPion 150 MG Tab.ER PO SCH (07:47)
[2017-06-02] MEDS: Multivitamins with Iron/Calcium/Folic Acid/Minerals Tab PO SCH (07:48)
[2017-06-02] MEDS: Aspirin 81 MG Tab.EC PO SCH (07:48)
[2017-06-02] MEDS: Magnesium Oxide 400 MG Tab PO SCH ×2 (07:48→20:09)
[2017-06-02] MEDS: Docusate Sodium 100 MG Cap PO SCH ×2 (07:48→20:09)
[2017-06-02] MEDS: metFORMIN 500 MG Tab PO SCH ×2 (07:49→17:34)
[2017-06-02] MEDS: Metoprolol Succinate 25 MG Tab.ER PO SCH (07:49)
[2017-06-02] MEDS: Finasteride 5 MG Tab PO SCH (07:49)
[2017-06-02] MEDS: Miconazole 2% Top Powder 45 GM Container TOP SCH ×2 (07:50→20:09)
[2017-06-02] MEDS: Acetaminophen 325 MG Tab PO PRN (08:18)
[2017-06-02] MEDS: Polyethylene Glycol 3350 Powder 17 GM Packet PO PRN (09:07)
[2017-06-02] MEDS ORDERED: Fluticasone Propionate Nasal Spray 16 GM Bottle NASBOTH PRN (14:09)
--- NOTE | 2017-06-02 14:38 | PCM.HP ---
H&P History of Present Illness - General Date of Service: 05/29/17 Admit Problem/Dx: Admission Diagnosis/Problem Admission Diagnosis/Problem Sepsis Source of Information: Patient, Old Records - History of Present Illness Initial Comments - Free Text/Narative: History of present illness: Patient return for [place]. He was reevaluated for concerns for possible sepsis. Temp slightly over 100 pulse over 100 systolic pressure less than 100 requiring discontinuing his antihypertensives, CRP trending up from undetectable to greater than 100. He had negative blood cultures there. His MRI shows large complex fluid collection from lumbar or cervical area. Neurosurgery was again consult did, they felt this was expected appearance given his known history of spinal abscess with similar MRI two months ago. ID was counseled today felt some of his abnormalities could be from a drug reaction. He developed a rash which has improved since nafcillin was stopped. It was felt he may have failed Ancef earlier as he developed a wound abscess near the lumbar site. He is currently on vancomycin being dosed per pharmacy and infectious disease. They're concerned about a possible right- sided psoas abscess by his MRI, CT showed no definitive fluid collection all there was some swelling here. His blood pressures now gone back up again. Temp is gone down CRP trending downwards. He was restarted on PPI and toms for GERD. He would like to stop niacin as this is an old medicine he has been on for a while. He is requesting Flonase and Sudafed when necessary congestion. He was also like to be on probiotic. Other than above his past medical history also includes diabetes mellitus and hypertension along with BPH issues. Urology was consult in for is difficult to urinate. Doesn't sound like they feel this is a neurogenic bladder but more related to prostate. They're recommending trial without catheter again. Exam is unchanged from previous. His systolic pressures running 156 otherwise vital signs are normal. Heart and lungs are clear. He has a clean surgical site posteriorly of lumbar spine abdomen soft nontender. Extremity is warm well perfused without edema. No calf tenderness. Still has slight foot drop on left requiring orthotic brace. Only mild residual from previous rash. Assessment and plan: #1. 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 MRI was largely unchanged from previous. He does appear to have small infarcted area near thoracic spine and the left which they feel probably is sequela of earlier infection in March. He will continue physical therapy. He will continue vancomycin for about another four weeks then we will obtain MRI after this. He'll see ID and neurosurgery again after completion of antibiotics. The concern still remains this is a complex abscess/infection that will not resolve with antibiotics alone and that this may recur after stopping. This is a complex case and he may need to consider referral in the future at tertiary center at [facility] or [facility] depending on clinical course. He otherwise is stable at this time. Benign on the psoas region. He denies any issues with hip flexion currently. We might consider reimaging this in a couple weeks to make shorts not turning into an organizing abscess. If this was an abscess of the noncontiguous site this would be concerning for bacteremia despite being on antibiotics which would be concerning for endocarditis until proven otherwise requiring repeat echocardiogram. No sign of such alarming complications currently. Add back losartan and hydrochlorothiazide for blood pressure. Continue metoprolol. Continue medicines for BPH. Trial without catheter again in a week or so. Unclear if neurogenic bladder may be contributing to BPH issues. He has seen both neurosurgery and neurology recently while in [place]. He can use Flonase and Sudafed as needed for congestion. Monitor blood pressure. Sugars currently okay on medicine. Monitor. Now that he is somewhat amateur I do not feel anticoagulation is needed. Continue aspirin for DVT prophylaxis. - Related Data Allergies/Adverse Reactions: Allergies Allergy/AdvReac Type Severity Reaction Status Date / Time lisinopril Allergy Severe Swollen Verified 05/29/17 12:43 Tongue nafcillin Allergy Severe Hives Verified 05/29/17 12:43 dog dander Allergy Unknown Cannot Verified 05/29/17 12:43 Remember grass pollen Allergy Unknown Cannot Verified 05/29/17 12:43 Remember Horse/Equine Containing Allergy Unknown Cannot Verified 05/29/17 12:43 Products Remember mold Allergy Unknown Cannot Verified 05/29/17 12:43 Remember weed pollen Allergy Unknown Cannot Verified 05/29/17 12:43 Remember Penicillins Allergy unknown Verified 05/29/17 12:43 Home Medications: Home Meds Aspirin [Halfprin] 81 mg PO DAILY 09/04/13 [History] Clobetasol [Clobetasol Propionate 0.05%] 1 gram TOP BID 09/04/13 [History] atorvaSTATin [Lipitor] 40 mg PO BEDTIME 09/04/13 [History] buPROPion [buPROPion XL] 150 mg PO DAILY 09/04/13 [History] metFORMIN [Glucophage] 1,000 mg PO BIDM 09/04/13 [History] Docusate Sodium [Colace] 100 mg PO BID 04/09/17 [History] Empagliflozin [Jardiance] 25 mg PO DAILY 04/09/17 [History] Fluticasone Propionate [Flonase] 1 spray NASBOTH DAILY PRN 04/09/17 [History] Niacinamide [Niacin] 1,000 mg PO DAILY 04/09/17 [History] Non-Formulary Medication [NF Drug] 50 - 100 mg PO ASDIRECTED PRN 04/09/17 [ History] Polyethylene Glycol 3350 [MiraLAX] 17 gm PO Q12H 04/09/17 [History] Tamsulosin [Flomax] 0.4 mg PO BEDTIME 04/09/17 [History] oxyCODONE 5 mg PO Q4H PRN 04/09/17 [History] Acetaminophen [Tylenol] 650 mg PO TID tablet 05/02/17 [Rx] Finasteride [Proscar] 5 mg PO DAILY tablet 05/02/17 [Rx] Magnesium Oxide 400 mg PO BID tablet 05/02/17 [Rx] Miconazole [Desenex 2%] 1 applic TOP BID 05/05/17 [History] Non-Formulary Medication [NF Drug] 2 tab PO DAILY 05/05/17 [History] Heparin Sodium,Porcine/PF [Heparin 300 Unit/3 ml (100/ml)] 300 units IV ASDIRECTED 05/29/17 [History] Heparin Sodium,Porcine/PF [Heparin 300 Unit/3 ml (100/ml)] 300 units IV Q12H 10/09 [History] Metoprolol Succinate 25 mg PO DAILY 05/29/17 [History] Multivitamin [Multi-Vitamin Daily] 1 tab PO DAILY 05/29/17 [History] Sodium Chloride 0.9% [Saline Flush Sterile Syringe] 10 ml FLUSH ASDIRECTED PRN 05/29/17 [History] Vancomycin/0.9 % Sod Chloride [Vanco 1.75 gm/500 ml-0.9% NaCl] 1.75 gm IV Q12H 05/29/17 [History] diphenhydrAMINE HCl [Benadryl] 25 mg PO Q6H PRN 05/29/17 [History] diphenhydrAMINE HCl [Benadryl] 50 mg PO BID 05/29/17 [History] Past Medical History Cardiovascular History: Reports: High Cholesterol, Hypertension Respiratory History: Reports: Asthma Genitourinary History: Reports: Prostate Disorder, Retention, Urinary Musculoskeletal History: Reports: Back Pain, Chronic Psychiatric History: Reports: Depression Endocrine/Metabolic History: Reports: Diabetes, Type II, Obesity/BMI 30+ - Infectious Disease History Infectious Disease History: Reports: Other (See Below) Other Infectious Disease History: MSSA - Past Surgical History Cardiovascular Surgical History: Reports: None Respiratory Surgical History: Reports: None Male Surgical History: Reports: None Musculoskeletal Surgical History: Reports: Other (See Below) Other Musculoskeletal Surgeries/Procedures:: Laminectomy L4-L5 Social & Family History - Family History Family Medical History: Noncontributory HEENT: Reports: Cataract Cardiac: Reports: Angina, Arrhythmia, Heart Failure, Hypertension, [place], Pacemaker , Syncope Respiratory: Reports: None GI: Reports: None Neurological: Reports: Alzheimers Disease Psychiatric: Reports: Anxiety Endocrine/Metabolic: Reports: Diabetes, Type I Oncologic: Reports: Breast, Liver, Lung - Tobacco Use Smoking Status *Q: Never Smoker Second Hand Smoke Exposure: No - Caffeine Use Caffeine Use: Reports: Coffee, Soda - Alcohol Use Days Per Week of Alcohol Use: 0 - Recreational Drug Use Recreational Drug Use: No H&P Review of Systems - Review of Systems: Review Of Systems: See Below Exam - Exam Exam: See Below - Vital Signs Vital Signs: Last Vital Signs Temp 36.7 C 06/02/17 05:21 Pulse 95 06/02/17 07:49 Resp 19 06/02/17 05:21 BP 158/87 H 06/02/17 07:49 Pulse Ox 98 06/02/17 05:21 Weight: 87.884 kg - Patient Data Lab Results Last 24 hrs: Laboratory Results - last 24 hr 05/30/17 06/01/17 06/01/17 Range/Units 17:08 06:30 16:41 POC Glucose 197 H 112 H 119 H (74-106) mg/dL 06/02/17 Range/Units 06:07 POC Glucose 90 (74-106) mg/dL Result Diagrams: 06/01/17 09:57 06/01/17 09:57 *Q Meaningful Use (ADM) - VTE *Q VTE Criteria *Q: - Stroke *Q Stroke Criteria *Q: - AMI *Q AMI Criteria *Q: Problem List Initiated/Reviewed/Updated: Yes Orders Last 24hrs: Active Orders 24 hr Category Date Time Status Insert Patel Catheter [Insert Urinary Catheter] [OM.PC] Care 06/01/17 19:00 Ordered Q24H Insert Patel Catheter [Insert Urinary Catheter] [OM.PC] Care 06/02/17 19:00 Ordered Q24H Insert Patel Catheter [Insert Urinary Catheter] [OM.PC] Care 06/03/17 19:00 Ordered Q24H Insert Urinary Catheter [OM.PC] Q24H Care 06/03/17 10:00 Ordered Remove Patel Catheter [Urinary Catheter Removal] [RC] Care 06/03/17 10:00 Active Per Unit Routine C-REACTIVE PROTEIN [CHEM] Q7D Lab 06/08/17 07:30 Ordered C-REACTIVE PROTEIN [CHEM] Q7D Lab 06/15/17 07:30 Ordered C-REACTIVE PROTEIN [CHEM] Q7D Lab 06/22/17 07:30 Ordered C-REACTIVE PROTEIN [CHEM] Q7D Lab 06/29/17 07:30 Ordered CBC WITH AUTO DIFF [HEME] Q7D Lab 06/08/17 07:30 Ordered CBC WITH AUTO DIFF [HEME] Q7D Lab 06/15/17 07:30 Ordered CBC WITH AUTO DIFF [HEME] Q7D Lab 06/22/17 07:30 Ordered CBC WITH AUTO DIFF [HEME] Q7D Lab 06/29/17 07:30 Ordered COMPREHENSIVE METABOLIC PN,CMP [CHEM] Q7D Lab 06/08/17 07:30 Ordered COMPREHENSIVE METABOLIC PN,CMP [CHEM] Q7D Lab 06/15/17 07:30 Ordered COMPREHENSIVE METABOLIC PN,CMP [CHEM] Q7D Lab 06/22/17 07:30 Ordered COMPREHENSIVE METABOLIC PN,CMP [CHEM] Q7D Lab 06/29/17 07:30 Ordered CREATININE W/GFR [CHEM] Q7D Lab 06/04/17 07:30 Ordered CREATININE W/GFR [CHEM] Q7D Lab 06/11/17 07:30 Ordered CREATININE W/GFR [CHEM] Q7D Lab 06/18/17 07:30 Ordered CREATININE W/GFR [CHEM] Q7D Lab 06/25/17 07:30 Ordered SEDIMENTATION RATE AUTO [HEME] Q7D Lab 06/08/17 07:30 Ordered SEDIMENTATION RATE AUTO [HEME] Q7D Lab 06/15/17 07:30 Ordered SEDIMENTATION RATE AUTO [HEME] Q7D Lab 06/22/17 07:30 Ordered SEDIMENTATION RATE AUTO [HEME] Q7D Lab 06/29/17 07:30 Ordered VANCOMYCIN TROUGH [CHEM] Q7D Lab 06/04/17 07:30 Ordered VANCOMYCIN TROUGH [CHEM] Q7D Lab 06/08/17 07:30 Ordered VANCOMYCIN TROUGH [CHEM] Q7D Lab 06/11/17 07:30 Ordered VANCOMYCIN TROUGH [CHEM] Q7D Lab 06/15/17 07:30 Ordered VANCOMYCIN TROUGH [CHEM] Q7D Lab 06/18/17 07:30 Ordered VANCOMYCIN TROUGH [CHEM] Q7D Lab 06/22/17 07:30 Ordered VANCOMYCIN TROUGH [CHEM] Q7D Lab 06/25/17 07:30 Ordered VANCOMYCIN TROUGH [CHEM] Q7D Lab 06/29/17 07:30 Ordered Fluticasone Propionate [Flonase] Med 06/02/17 14:09 Ordered 0.1 gm NASBOTH DAILY PRN Heparin Sodium [Heparin Lock Flush 100 Units/ML] Med 06/02/17 11:00 Active 300 unit IVPUSH BID@1100,2300 Hydrochlorothiazide Med 06/02/17 14:15 Ordered 12.5 mg PO DAILY Losartan [Cozaar] Med 06/02/17 14:15 Ordered 50 mg PO DAILY Omeprazole Med 06/03/17 07:00 Active 20 mg PO ACBRK Pseudoephedrine [Sudogest] Med 06/02/17 14:07 Ordered 30 mg PO Q6H PRN Vancomycin 1.25 gm Med 06/02/17 08:00 Active Sodium Chloride 0.9% [Normal Saline] 430 ml IV BID diphenhydrAMINE [Benadryl] Med 06/02/17 20:00 Active 50 mg PO Q12HR Medication Orders Acetaminophen (Tylenol) 650 mg PO Q6H PRN PRN Reason: pain Last Admin: 06/02/17 08:18 Dose: 650 mg Alteplase, Recombinant (Cathflo Activase) 2 mg IV ASDIRECTED PRN PRN Reason: PICC OCCLUSION Aspirin (Halfprin) 81 mg PO DAILY [facility] Last Admin: 06/02/17 07:48 Dose: 81 mg Admin: 06/01/17 07:33 Dose: 81 mg Admin: 05/31/17 07:35 Dose: 81 mg Admin: 05/30/17 10:18 Dose: 81 mg Atorvastatin Calcium (Lipitor) 40 mg PO BEDTIME [facility] Last Admin: 06/01/17 19:14 Dose: 40 mg Admin: 05/31/17 20:23 Dose: 40 mg Admin: 05/30/17 20:55 Dose: 40 mg Admin: 05/29/17 19:50 Dose: 40 mg Bupropion HCl (Wellbutrin Xl) 150 mg PO DAILY [facility] Last Admin: 06/02/17 07:47 Dose: 150 mg Admin: 06/01/17 07:33 Dose: 150 mg Admin: 05/31/17 07:36 Dose: 150 mg Admin: 05/30/17 10:17 Dose: 150 mg Calcium Carbonate/Glycine (Tums Extra Strength) 750 mg PO Q2H PRN PRN Reason: Dyspepsia Diphenhydramine HCl (Benadryl) 25 mg PO Q6H PRN PRN Reason: ITCHING Diphenhydramine HCl (Benadryl) 50 mg PO Q12HR [facility] Docusate Sodium (Colace) 100 mg PO BID [facility] Last Admin: 06/02/17 07:48 Dose: 100 mg Admin: 06/01/17 19:14 Dose: 100 mg Admin: 06/01/17 07:33 Dose: 100 mg Admin: 05/31/17 20:24 Dose: 100 mg Admin: 05/31/17 07:36 Dose: 100 mg Admin: 05/30/17 20:55 Dose: Not Given Finasteride (Proscar) 5 mg PO DAILY [facility] Last Admin: 06/02/17 07:49 Dose: 5 mg Admin: 06/01/17 07:33 Dose: 5 mg Admin: 05/31/17 07:36 Dose: 5 mg Fluticasone Propionate (Flonase) 0.1 gm NASBOTH DAILY PRN PRN Reason: CONGESTION Heparin Sodium (Porcine) (Heparin Lock Flush 100 Units/Ml) 300 unit IVPUSH ASDIRECTED PRN PRN Reason: picc flush Last Admin: 06/02/17 01:05 Dose: 300 unit Heparin Sodium (Porcine) (Heparin Lock Flush 100 Units/Ml) 300 unit IVPUSH BID@ 1100,2300 [facility] Last Admin: 06/02/17 11:09 Dose: Hydrochlorothiazide (Hydrochlorothiazide) 12.5 mg PO DAILY [facility] Vancomycin HCl 1.25 gm/ Sodium (Chloride) 430 mls @ 145 mls/hr IV BID [facility] Last Admin: 06/02/17 07:41 Dose: 145 mls/hr Losartan Potassium (Cozaar) 50 mg PO DAILY [facility] Magnesium Oxide (Magnesium Oxide) 400 mg PO BID [facility] Last Admin: 06/02/17 07:48 Dose: 400 mg Admin: 06/01/17 19:14 Dose: 400 mg Admin: 06/01/17 07:33 Dose: 400 mg Admin: 05/31/17 20:23 Dose: 400 mg Admin: 05/31/17 07:35 Dose: 400 mg Admin: 05/30/17 20:55 Dose: 400 mg [facility]) [facility] Admin: 06/02/17 07:49 Dose: 1,000 mg Admin: 06/01/17 17:35 Dose: 1,000 mg Admin: 06/01/17 07:33 Dose: 1,000 mg Admin: 05/31/17 17:10 Dose: 1,000 mg Admin: 05/31/17 07:36 Dose: 1,000 mg Admin: 05/30/17 17:08 Dose: 1,000 mg Metoprolol Succinate (Toprol Xl) 25 mg PO DAILY [facility] Last Admin: 06/02/17 07:49 Dose: 25 mg Admin: 06/01/17 07:33 Dose: 25 mg Admin: 05/31/17 07:35 Dose: 25 mg Admin: 05/30/17 10:17 Dose: 25 mg Miconazole (Desenex 2%) 0 gm TOP BID [facility] Last Admin: 06/02/17 07:50 Dose: 1 applic Admin: 06/01/17 19:14 Dose: 1 applic Admin: 06/01/17 07:32 Dose: 1 applic Admin: 05/31/17 20:24 Dose: 1 applic Admin: 05/31/17 07:34 Dose: 1 applic Admin: 05/30/17 20:56 Dose: 1 applic Multivitamins/Minerals (Thera M Plus) 1 tab PO DAILY [facility] Last Admin: 06/02/17 07:48 Dose: 1 tab Admin: 06/01/17 07:33 Dose: 1 tab Admin: 05/31/17 07:35 Dose: 1 tab Admin: 05/30/17 10:17 Dose: 1 tab Empagliflozin [ Jardiance] 25mg Patients Own Med 25 mg PO DAILY [facility] Last Admin: 06/02/17 07:46 Dose: 25 mg Admin: 06/01/17 07:32 Dose: 25 mg Admin: 05/31/17 07:37 Dose: 25 mg Admin: 05/30/17 15:46 Dose: Not Given Omeprazole (Omeprazole) 20 mg PO ACBRK [facility] Ondansetron HCl (Zofran) 4 mg IV Q6H PRN PRN Reason: Nausea/Vomiting Polyethylene Glycol (Miralax) 17 gm PO Q12H PRN PRN Reason: Constipation Last Admin: 06/02/17 09:07 Dose: 17 gm Pseudoephedrine HCl (Sudogest) 30 mg PO Q6H PRN PRN Reason: Congestion Sodium Chloride (Saline Flush) 10 ml IV ASDIRECTED PRN PRN Reason: Keep Vein Open Last Admin: 06/02/17 10:45 Dose: 10 ml Admin: 06/02/17 07:42 Dose: 10 ml Admin: 06/02/17 01:05 Dose: 10 ml Admin: 06/01/17 13:30 Dose: 10 ml Admin: 06/01/17 01:37 Dose: 20 ml Admin: 05/31/17 22:16 Dose: 10 ml Admin: 05/31/17 02:33 Dose: 20 ml Admin: 05/30/17 23:28 Dose: 10 ml Admin: 05/30/17 03:37 Dose: 10 ml Admin: 05/30/17 00:38 Dose: 10 ml Admin: 05/29/17 14:40 Dose: 10 ml Tamsulosin HCl (Flomax) 0.4 mg PO BEDTIME [facility] Last Admin: 06/01/17 19:14 Dose: 0.4 mg Admin: 05/31/17 20:23 Dose: 0.4 mg Admin: 05/30/17 20:55 Dose: 0.4 mg Vancomycin HCl (Pharmacy To Dose - Vancomycin) 1 dose .XX ASDIRECTED [facility]
[2017-06-02] MEDS: Losartan 50 MG Tab PO SCH (16:14)
[2017-06-02] MEDS: Hydrochlorothiazide 12.5 MG Cap PO SCH (16:14)
[2017-06-02] MEDS: atorvaSTATin 40 MG Tab PO SCH (20:08)
[2017-06-02] MEDS: Tamsulosin 0.4 MG Cap.ER PO SCH (20:09)
[2017-06-03] MEDS: Omeprazole 20 MG Cap.CR PO SCH (06:25)
[2017-06-03] MEDS ORDERED: PROBIOTIC GUMMY PO SCH (08:00)
[2017-06-03] MEDS: SODIUM CHLORIDE 0.9% IV SCH ×2 (08:50→20:01)
[2017-06-03] MEDS: VANCOMYCIN IV SCH ×2 (08:50→20:01)
[2017-06-03] MEDS: Metoprolol Succinate 25 MG Tab.ER PO SCH (08:52)
[2017-06-03] MEDS: Docusate Sodium 100 MG Cap PO SCH ×2 (08:52→20:01)
[2017-06-03] MEDS: Fluticasone Propionate Nasal Spray 16 GM Bottle NASBOTH SCH (08:52)
[2017-06-03] MEDS: Aspirin 81 MG Tab.EC PO SCH (08:52)
[2017-06-03] MEDS: Magnesium Oxide 400 MG Tab PO SCH ×2 (08:52→20:01)
[2017-06-03] MEDS: EMPAGLIFLOZIN 25 MG PO SCH (08:52)
[2017-06-03] MEDS: Multivitamins with Iron/Calcium/Folic Acid/Minerals Tab PO SCH (08:52)
[2017-06-03] MEDS: diphenhydrAMINE 25 MG Cap PO SCH ×2 (08:52→20:01)
[2017-06-03] MEDS: Miconazole 2% Top Powder 45 GM Container TOP SCH ×2 (08:53→23:17)
[2017-06-03] MEDS: Hydrochlorothiazide 12.5 MG Cap PO SCH (08:53)
[2017-06-03] MEDS: Losartan 50 MG Tab PO SCH (08:53)
[2017-06-03] MEDS: Finasteride 5 MG Tab PO SCH (08:53)
[2017-06-03] MEDS: buPROPion 150 MG Tab.ER PO SCH (08:53)
[2017-06-03] MEDS: metFORMIN 500 MG Tab PO SCH ×2 (08:53→17:04)
[2017-06-03] MEDS: Acetaminophen 325 MG Tab PO PRN (08:57)
[2017-06-03] MEDS: Pseudoephedrine 30 MG Tab PO PRN ×2 (08:57→17:05)
[2017-06-03] MEDS: Heparin Sodium 100 Units/ML 3 ML Syringe IVPUSH SCH ×2 (11:57→23:17)
[2017-06-03] MEDS: PROBIOTIC GUMMIES PO SCH (11:57)
[2017-06-03] MEDS: atorvaSTATin 40 MG Tab PO SCH (20:01)
[2017-06-03] MEDS: Tamsulosin 0.4 MG Cap.ER PO SCH (20:01)
[2017-06-03] MEDS: Sodium Chloride 0.9% 10 ML Syringe IV PRN ×2 (20:05→23:17)
[2017-06-04] MEDS: Omeprazole 20 MG Cap.CR PO SCH ×2 (05:44→06:04)
[2017-06-04] MEDS: Heparin Sodium 100 Units/ML 3 ML Syringe IVPUSH PRN (07:57)
[2017-06-04] MEDS: Sodium Chloride 0.9% 10 ML Syringe IV PRN ×3 (07:57→10:30)
[2017-06-04] MEDS: buPROPion 150 MG Tab.ER PO SCH (07:57)
[2017-06-04] MEDS: Aspirin 81 MG Tab.EC PO SCH (07:58)
[2017-06-04] MEDS: metFORMIN 500 MG Tab PO SCH ×2 (07:58→17:49)
[2017-06-04] MEDS: Multivitamins with Iron/Calcium/Folic Acid/Minerals Tab PO SCH (07:58)
[2017-06-04] MEDS: Losartan 50 MG Tab PO SCH (07:58)
[2017-06-04] MEDS: Hydrochlorothiazide 12.5 MG Cap PO SCH (07:58)
[2017-06-04] MEDS: Docusate Sodium 100 MG Cap PO SCH ×2 (07:59→21:09)
[2017-06-04] MEDS: diphenhydrAMINE 25 MG Cap PO SCH ×2 (07:59→21:08)
[2017-06-04] MEDS: Magnesium Oxide 400 MG Tab PO SCH ×2 (07:59→21:09)
[2017-06-04] MEDS: Finasteride 5 MG Tab PO SCH (07:59)
[2017-06-04] MEDS: Metoprolol Succinate 25 MG Tab.ER PO SCH (08:00)
[2017-06-04] MEDS: Acetaminophen 325 MG Tab PO PRN (08:02)
[2017-06-04] MEDS: Pseudoephedrine 30 MG Tab PO PRN ×2 (08:02→21:10)
[2017-06-04] MEDS: EMPAGLIFLOZIN 25 MG PO SCH (08:03)
[2017-06-04] MEDS: Miconazole 2% Top Powder 45 GM Container TOP SCH ×2 (08:03→21:09)
[2017-06-04] MEDS: Fluticasone Propionate Nasal Spray 16 GM Bottle NASBOTH SCH (08:03)
[2017-06-04] MEDS: SODIUM CHLORIDE 0.9% IV SCH (08:40)
[2017-06-04] MEDS: VANCOMYCIN IV SCH (08:40)
[2017-06-04] MEDS: Heparin Sodium 100 Units/ML 3 ML Syringe IVPUSH SCH ×2 (10:30→23:17)
[2017-06-04] MEDS: PROBIOTIC GUMMIES PO SCH (12:17)
[2017-06-04] MEDS: Tamsulosin 0.4 MG Cap.ER PO SCH (21:09)
[2017-06-04] MEDS: atorvaSTATin 40 MG Tab PO SCH (21:09)
[2017-06-05] MEDS: Omeprazole 20 MG Cap.CR PO SCH ×2 (06:17→06:23)
[2017-06-05] MEDS: Pseudoephedrine 30 MG Tab PO PRN ×2 (08:09→20:05)
[2017-06-05] MEDS: Acetaminophen 325 MG Tab PO PRN ×2 (08:09→20:05)
[2017-06-05] MEDS: Metoprolol Succinate 25 MG Tab.ER PO SCH (08:10)
[2017-06-05] MEDS: Hydrochlorothiazide 12.5 MG Cap PO SCH (08:10)
[2017-06-05] MEDS: Magnesium Oxide 400 MG Tab PO SCH ×2 (08:10→20:04)
[2017-06-05] MEDS: Docusate Sodium 100 MG Cap PO SCH ×2 (08:10→20:07)
[2017-06-05] MEDS: metFORMIN 500 MG Tab PO SCH ×2 (08:11→17:35)
[2017-06-05] MEDS: Multivitamins with Iron/Calcium/Folic Acid/Minerals Tab PO SCH (08:11)
[2017-06-05] MEDS: buPROPion 150 MG Tab.ER PO SCH (08:11)
[2017-06-05] MEDS: Losartan 50 MG Tab PO SCH (08:11)
[2017-06-05] MEDS: Finasteride 5 MG Tab PO SCH (08:11)
[2017-06-05] MEDS: diphenhydrAMINE 25 MG Cap PO SCH ×2 (08:11→20:05)
[2017-06-05] MEDS: Aspirin 81 MG Tab.EC PO SCH (08:11)
[2017-06-05] MEDS: EMPAGLIFLOZIN 25 MG PO SCH (08:14)
[2017-06-05] MEDS: Miconazole 2% Top Powder 45 GM Container TOP SCH ×2 (08:14→20:53)
[2017-06-05] MEDS: Fluticasone Propionate Nasal Spray 16 GM Bottle NASBOTH SCH (08:16)
[2017-06-05] MEDS: Sodium Chloride 0.9% 10 ML Syringe IV PRN ×3 (09:54→23:17)
[2017-06-05] MEDS: Heparin Sodium 100 Units/ML 3 ML Syringe IVPUSH SCH ×2 (11:25→23:17)
[2017-06-05] MEDS: PROBIOTIC GUMMIES PO SCH (11:25)
[2017-06-05] MEDS: atorvaSTATin 40 MG Tab PO SCH (20:05)
[2017-06-05] MEDS: Tamsulosin 0.4 MG Cap.ER PO SCH (20:05)
[2017-06-06] MEDS: Omeprazole 20 MG Cap.CR PO SCH (07:17)
[2017-06-06] MEDS: Fluticasone Propionate Nasal Spray 16 GM Bottle NASBOTH SCH (07:38)
[2017-06-06] MEDS: Aspirin 81 MG Tab.EC PO SCH (07:38)
[2017-06-06] MEDS: diphenhydrAMINE 25 MG Cap PO SCH ×2 (07:39→21:43)
[2017-06-06] MEDS: Multivitamins with Iron/Calcium/Folic Acid/Minerals Tab PO SCH (07:39)
[2017-06-06] MEDS: Finasteride 5 MG Tab PO SCH (07:39)
[2017-06-06] MEDS: Docusate Sodium 100 MG Cap PO SCH ×2 (07:39→21:54)
[2017-06-06] MEDS: Metoprolol Succinate 25 MG Tab.ER PO SCH (07:39)
[2017-06-06] MEDS: Magnesium Oxide 400 MG Tab PO SCH ×2 (07:39→21:44)
[2017-06-06] MEDS: Hydrochlorothiazide 12.5 MG Cap PO SCH (07:39)
[2017-06-06] MEDS: buPROPion 150 MG Tab.ER PO SCH (07:39)
[2017-06-06] MEDS: Miconazole 2% Top Powder 45 GM Container TOP SCH ×2 (07:40→21:46)
[2017-06-06] MEDS: EMPAGLIFLOZIN 25 MG PO SCH (07:40)
[2017-06-06] MEDS: Losartan 50 MG Tab PO SCH (07:40)
[2017-06-06] MEDS: metFORMIN 500 MG Tab PO SCH ×2 (07:40→17:15)
[2017-06-06] MEDS: Pseudoephedrine 30 MG Tab PO PRN (07:49)
[2017-06-06] MEDS: Sodium Chloride 0.9% 10 ML Syringe IV PRN ×4 (09:02→23:29)
[2017-06-06] MEDS: Heparin Sodium 100 Units/ML 3 ML Syringe IVPUSH SCH ×2 (10:43→23:29)
[2017-06-06] MEDS: PROBIOTIC GUMMIES PO SCH (11:34)
[2017-06-06] MEDS: Tamsulosin 0.4 MG Cap.ER PO SCH (21:44)
[2017-06-06] MEDS: atorvaSTATin 40 MG Tab PO SCH (21:44)
[2017-06-07] MEDS: Omeprazole 20 MG Cap.CR PO SCH (06:10)
[2017-06-07] MEDS: Fluticasone Propionate Nasal Spray 16 GM Bottle NASBOTH SCH (08:28)
[2017-06-07] MEDS: Miconazole 2% Top Powder 45 GM Container TOP SCH ×2 (08:28→20:19)
[2017-06-07] MEDS: EMPAGLIFLOZIN 25 MG PO SCH (08:29)
[2017-06-07] MEDS: Losartan 50 MG Tab PO SCH (08:30)
[2017-06-07] MEDS: Hydrochlorothiazide 12.5 MG Cap PO SCH (08:30)
[2017-06-07] MEDS: Multivitamins with Iron/Calcium/Folic Acid/Minerals Tab PO SCH (08:30)
[2017-06-07] MEDS: metFORMIN 500 MG Tab PO SCH ×2 (08:30→17:00)
[2017-06-07] MEDS: Docusate Sodium 100 MG Cap PO SCH ×2 (08:30→20:21)
[2017-06-07] MEDS: diphenhydrAMINE 25 MG Cap PO SCH ×2 (08:30→20:20)
[2017-06-07] MEDS: Magnesium Oxide 400 MG Tab PO SCH ×2 (08:30→20:20)
[2017-06-07] MEDS: Finasteride 5 MG Tab PO SCH (08:31)
[2017-06-07] MEDS: buPROPion 150 MG Tab.ER PO SCH (08:31)
[2017-06-07] MEDS: Metoprolol Succinate 25 MG Tab.ER PO SCH (08:31)
[2017-06-07] MEDS: Aspirin 81 MG Tab.EC PO SCH (08:31)
[2017-06-07] MEDS: Pseudoephedrine 30 MG Tab PO PRN (08:35)
[2017-06-07] MEDS: Sodium Chloride 0.9% 10 ML Syringe IV PRN ×4 (08:58→23:17)
[2017-06-07] MEDS: Heparin Sodium 100 Units/ML 3 ML Syringe IVPUSH SCH ×2 (10:34→23:17)
[2017-06-07] MEDS: PROBIOTIC GUMMIES PO SCH (11:00)
[2017-06-07] MEDS: atorvaSTATin 40 MG Tab PO SCH (20:20)
[2017-06-07] MEDS: Tamsulosin 0.4 MG Cap.ER PO SCH (20:20)
[2017-06-08] MEDS: Omeprazole 20 MG Cap.CR PO SCH (06:27)
[2017-06-08] MEDS: Finasteride 5 MG Tab PO SCH (07:38)
[2017-06-08] MEDS: Metoprolol Succinate 25 MG Tab.ER PO SCH (07:38)
[2017-06-08] MEDS: Magnesium Oxide 400 MG Tab PO SCH ×2 (07:38→21:06)
[2017-06-08] MEDS: Hydrochlorothiazide 12.5 MG Cap PO SCH (07:38)
[2017-06-08] MEDS: buPROPion 150 MG Tab.ER PO SCH (07:38)
[2017-06-08] MEDS: Losartan 50 MG Tab PO SCH (07:38)
[2017-06-08] MEDS: diphenhydrAMINE 25 MG Cap PO SCH ×2 (07:38→21:05)
[2017-06-08] MEDS: Multivitamins with Iron/Calcium/Folic Acid/Minerals Tab PO SCH (07:39)
[2017-06-08] MEDS: metFORMIN 500 MG Tab PO SCH ×2 (07:39→18:12)
[2017-06-08] MEDS: Aspirin 81 MG Tab.EC PO SCH (07:39)
[2017-06-08] MEDS: Miconazole 2% Top Powder 45 GM Container TOP SCH ×2 (07:39→21:06)
[2017-06-08] MEDS: Fluticasone Propionate Nasal Spray 16 GM Bottle NASBOTH SCH (07:39)
[2017-06-08] MEDS: EMPAGLIFLOZIN 25 MG PO SCH (07:39)
[2017-06-08] MEDS: Docusate Sodium 100 MG Cap PO SCH ×2 (07:39→21:06)
[2017-06-08] MEDS: Pseudoephedrine 30 MG Tab PO PRN (07:45)
[2017-06-08 09:11] LABS: CHLORIDE,CL 105 mmol/L (98-107); SODIUM,NA 143 mmol/L (136-145)
[2017-06-08] MEDS: Sodium Chloride 0.9% 10 ML Syringe IV PRN ×3 (09:19→21:06)
[2017-06-08] MEDS: PROBIOTIC GUMMIES PO SCH ×2 (10:50→11:00)
[2017-06-08] MEDS: Heparin Sodium 100 Units/ML 3 ML Syringe IVPUSH SCH ×2 (10:50→22:30)
[2017-06-08] MEDS: Acetaminophen 325 MG Tab PO PRN (12:42)
[2017-06-08] MEDS: atorvaSTATin 40 MG Tab PO SCH (21:06)
[2017-06-08] MEDS: Tamsulosin 0.4 MG Cap.ER PO SCH (21:06)
[2017-06-09] MEDS: Omeprazole 20 MG Cap.CR PO SCH (06:00)
[2017-06-09] MEDS: diphenhydrAMINE 25 MG Cap PO SCH ×2 (07:42→21:18)
[2017-06-09] MEDS: Aspirin 81 MG Tab.EC PO SCH (07:42)
[2017-06-09] MEDS: Multivitamins with Iron/Calcium/Folic Acid/Minerals Tab PO SCH (07:42)
[2017-06-09] MEDS: Magnesium Oxide 400 MG Tab PO SCH ×2 (07:43→21:18)
[2017-06-09] MEDS: Finasteride 5 MG Tab PO SCH (07:43)
[2017-06-09] MEDS: buPROPion 150 MG Tab.ER PO SCH (07:43)
[2017-06-09] MEDS: Docusate Sodium 100 MG Cap PO SCH ×2 (07:43→21:18)
[2017-06-09] MEDS: Hydrochlorothiazide 12.5 MG Cap PO SCH (07:43)
[2017-06-09] MEDS: metFORMIN 500 MG Tab PO SCH ×2 (07:43→17:36)
[2017-06-09] MEDS: Metoprolol Succinate 25 MG Tab.ER PO SCH (07:44)
[2017-06-09] MEDS: Losartan 50 MG Tab PO SCH (07:45)
[2017-06-09] MEDS: EMPAGLIFLOZIN 25 MG PO SCH (07:47)
[2017-06-09] MEDS: Acetaminophen 325 MG Tab PO PRN (07:53)
[2017-06-09] MEDS: Pseudoephedrine 30 MG Tab PO PRN (07:57)
[2017-06-09] MEDS: Fluticasone Propionate Nasal Spray 16 GM Bottle NASBOTH SCH (09:27)
[2017-06-09] MEDS: Miconazole 2% Top Powder 45 GM Container TOP SCH ×2 (09:28→21:18)
[2017-06-09] MEDS ORDERED: Potassium Chloride 20 MEQ Tab.ER PO ONE (10:58)
[2017-06-09] MEDS: Heparin Sodium 100 Units/ML 3 ML Syringe IVPUSH SCH ×2 (11:17→23:15)
[2017-06-09] MEDS: Sodium Chloride 0.9% 10 ML Syringe IV PRN ×2 (11:17→21:19)
[2017-06-09] MEDS: PROBIOTIC GUMMIES PO SCH (11:21)
[2017-06-09] MEDS: atorvaSTATin 40 MG Tab PO SCH (21:18)
[2017-06-09] MEDS: Tamsulosin 0.4 MG Cap.ER PO SCH (21:18)
[2017-06-10] MEDS: Omeprazole 20 MG Cap.CR PO SCH (06:01)
[2017-06-10] MEDS: Multivitamins with Iron/Calcium/Folic Acid/Minerals Tab PO SCH (07:49)
[2017-06-10] MEDS: buPROPion 150 MG Tab.ER PO SCH (07:49)
[2017-06-10] MEDS: Hydrochlorothiazide 12.5 MG Cap PO SCH (07:49)
[2017-06-10] MEDS: metFORMIN 500 MG Tab PO SCH ×2 (07:49→17:35)
[2017-06-10] MEDS: Losartan 50 MG Tab PO SCH (07:50)
[2017-06-10] MEDS: Fluticasone Propionate Nasal Spray 16 GM Bottle NASBOTH SCH (07:50)
[2017-06-10] MEDS: Finasteride 5 MG Tab PO SCH (07:50)
[2017-06-10] MEDS: Docusate Sodium 100 MG Cap PO SCH ×2 (07:50→20:59)
[2017-06-10] MEDS: Metoprolol Succinate 25 MG Tab.ER PO SCH (07:50)
[2017-06-10] MEDS: Aspirin 81 MG Tab.EC PO SCH (07:50)
[2017-06-10] MEDS: diphenhydrAMINE 25 MG Cap PO SCH ×2 (07:50→20:59)
[2017-06-10] MEDS: Magnesium Oxide 400 MG Tab PO SCH ×2 (07:50→20:59)
[2017-06-10] MEDS: Miconazole 2% Top Powder 45 GM Container TOP SCH ×2 (07:51→21:00)
[2017-06-10] MEDS: EMPAGLIFLOZIN 25 MG PO SCH (07:51)
[2017-06-10] MEDS: Heparin Sodium 100 Units/ML 3 ML Syringe IVPUSH SCH ×2 (10:48→22:44)
[2017-06-10] MEDS: PROBIOTIC GUMMIES PO SCH ×2 (10:49→11:57)
[2017-06-10] MEDS: Sodium Chloride 0.9% 10 ML Syringe IV PRN ×3 (10:49→22:44)
[2017-06-10] MEDS: Pseudoephedrine 30 MG Tab PO PRN (12:01)
[2017-06-10] MEDS: Tamsulosin 0.4 MG Cap.ER PO SCH (20:59)
[2017-06-10] MEDS: atorvaSTATin 40 MG Tab PO SCH (20:59)
[2017-06-11] MEDS: Omeprazole 20 MG Cap.CR PO SCH (06:01)
[2017-06-11] MEDS: buPROPion 150 MG Tab.ER PO SCH (07:45)
[2017-06-11] MEDS: Multivitamins with Iron/Calcium/Folic Acid/Minerals Tab PO SCH (07:45)
[2017-06-11] MEDS: EMPAGLIFLOZIN 25 MG PO SCH (07:45)
[2017-06-11] MEDS: Metoprolol Succinate 25 MG Tab.ER PO SCH (07:45)
[2017-06-11] MEDS: Fluticasone Propionate Nasal Spray 16 GM Bottle NASBOTH SCH (07:45)
[2017-06-11] MEDS: Docusate Sodium 100 MG Cap PO SCH ×2 (07:46→19:14)
[2017-06-11] MEDS: diphenhydrAMINE 25 MG Cap PO SCH ×2 (07:46→19:15)
[2017-06-11] MEDS: Hydrochlorothiazide 12.5 MG Cap PO SCH (07:46)
[2017-06-11] MEDS: metFORMIN 500 MG Tab PO SCH ×2 (07:46→17:58)
[2017-06-11] MEDS: Miconazole 2% Top Powder 45 GM Container TOP SCH ×2 (07:46→19:15)
[2017-06-11] MEDS: Losartan 50 MG Tab PO SCH (07:47)
[2017-06-11] MEDS: Aspirin 81 MG Tab.EC PO SCH (07:47)
[2017-06-11] MEDS: Pseudoephedrine 30 MG Tab PO PRN (07:47)
[2017-06-11] MEDS: Finasteride 5 MG Tab PO SCH (07:47)
[2017-06-11] MEDS: Magnesium Oxide 400 MG Tab PO SCH ×2 (07:47→19:15)
[2017-06-11 09:13] LABS: CHLORIDE,CL 103 mmol/L (98-107); SODIUM,NA 142 mmol/L (136-145)
[2017-06-11] MEDS: Sodium Chloride 0.9% 10 ML Syringe IV PRN (09:44)
[2017-06-11] MEDS: Heparin Sodium 100 Units/ML 3 ML Syringe IVPUSH SCH ×2 (09:48→22:10)
[2017-06-11] MEDS: PROBIOTIC GUMMIES PO SCH (12:11)
[2017-06-11] MEDS: atorvaSTATin 40 MG Tab PO SCH (19:15)
[2017-06-11] MEDS: Tamsulosin 0.4 MG Cap.ER PO SCH (19:15)
[2017-06-12] MEDS: Omeprazole 20 MG Cap.CR PO SCH (06:04)
[2017-06-12] MEDS: Aspirin 81 MG Tab.EC PO SCH (07:51)
[2017-06-12] MEDS: buPROPion 150 MG Tab.ER PO SCH (07:51)
[2017-06-12] MEDS: Magnesium Oxide 400 MG Tab PO SCH ×2 (07:51→20:48)
[2017-06-12] MEDS: Miconazole 2% Top Powder 45 GM Container TOP SCH ×2 (07:51→20:48)
[2017-06-12] MEDS: Fluticasone Propionate Nasal Spray 16 GM Bottle NASBOTH SCH (07:51)
[2017-06-12] MEDS: diphenhydrAMINE 25 MG Cap PO SCH ×2 (07:51→20:47)
[2017-06-12] MEDS: EMPAGLIFLOZIN 25 MG PO SCH (07:51)
[2017-06-12] MEDS: Metoprolol Succinate 25 MG Tab.ER PO SCH (07:52)
[2017-06-12] MEDS: metFORMIN 500 MG Tab PO SCH ×2 (07:52→18:07)
[2017-06-12] MEDS: Pseudoephedrine 30 MG Tab PO PRN (07:52)
[2017-06-12] MEDS: Hydrochlorothiazide 12.5 MG Cap PO SCH (07:52)
[2017-06-12] MEDS: Losartan 50 MG Tab PO SCH (07:52)
[2017-06-12] MEDS: Docusate Sodium 100 MG Cap PO SCH ×2 (07:52→20:47)
[2017-06-12] MEDS: Multivitamins with Iron/Calcium/Folic Acid/Minerals Tab PO SCH (07:52)
[2017-06-12] MEDS: Finasteride 5 MG Tab PO SCH (07:52)
[2017-06-12] MEDS: Sodium Chloride 0.9% 10 ML Syringe IV PRN ×4 (09:07→22:26)
[2017-06-12] MEDS: Heparin Sodium 100 Units/ML 3 ML Syringe IVPUSH SCH ×2 (10:17→22:26)
[2017-06-12] MEDS: PROBIOTIC GUMMIES PO SCH (12:58)
[2017-06-12] MEDS: Tamsulosin 0.4 MG Cap.ER PO SCH (20:48)
[2017-06-12] MEDS: atorvaSTATin 40 MG Tab PO SCH (20:48)
[2017-06-13] MEDS: Omeprazole 20 MG Cap.CR PO SCH (06:12)
[2017-06-13] MEDS: EMPAGLIFLOZIN 25 MG PO SCH (08:03)
[2017-06-13] MEDS: Docusate Sodium 100 MG Cap PO SCH ×2 (08:04→21:39)
[2017-06-13] MEDS: Metoprolol Succinate 25 MG Tab.ER PO SCH (08:04)
[2017-06-13] MEDS: Fluticasone Propionate Nasal Spray 16 GM Bottle NASBOTH SCH (08:04)
[2017-06-13] MEDS: Magnesium Oxide 400 MG Tab PO SCH ×2 (08:04→21:39)
[2017-06-13] MEDS: diphenhydrAMINE 25 MG Cap PO SCH ×2 (08:04→21:39)
[2017-06-13] MEDS: metFORMIN 500 MG Tab PO SCH ×2 (08:04→17:46)
[2017-06-13] MEDS: Multivitamins with Iron/Calcium/Folic Acid/Minerals Tab PO SCH (08:04)
[2017-06-13] MEDS: Miconazole 2% Top Powder 45 GM Container TOP SCH ×2 (08:04→21:38)
[2017-06-13] MEDS: buPROPion 150 MG Tab.ER PO SCH (08:04)
[2017-06-13] MEDS: Finasteride 5 MG Tab PO SCH (08:04)
[2017-06-13] MEDS: Aspirin 81 MG Tab.EC PO SCH (08:05)
[2017-06-13] MEDS: Losartan 50 MG Tab PO SCH (08:05)
[2017-06-13] MEDS: Hydrochlorothiazide 12.5 MG Cap PO SCH (08:05)
[2017-06-13] MEDS: Pseudoephedrine 30 MG Tab PO PRN (08:06)
[2017-06-13] MEDS: Heparin Sodium 100 Units/ML 3 ML Syringe IVPUSH SCH ×2 (09:31→22:45)
[2017-06-13] MEDS: Sodium Chloride 0.9% 10 ML Syringe IV PRN ×3 (09:31→22:45)
[2017-06-13] MEDS: PROBIOTIC GUMMIES PO SCH (12:06)
[2017-06-13] MEDS: Tamsulosin 0.4 MG Cap.ER PO SCH (21:38)
[2017-06-13] MEDS: atorvaSTATin 40 MG Tab PO SCH (21:39)
[2017-06-14] MEDS: Omeprazole 20 MG Cap.CR PO SCH (06:25)
[2017-06-14] MEDS: EMPAGLIFLOZIN 25 MG PO SCH (07:43)
[2017-06-14] MEDS: Losartan 50 MG Tab PO SCH (07:44)
[2017-06-14] MEDS: Fluticasone Propionate Nasal Spray 16 GM Bottle NASBOTH SCH (07:44)
[2017-06-14] MEDS: Hydrochlorothiazide 12.5 MG Cap PO SCH (07:44)
[2017-06-14] MEDS: Metoprolol Succinate 25 MG Tab.ER PO SCH (07:44)
[2017-06-14] MEDS: Docusate Sodium 100 MG Cap PO SCH ×2 (07:44→20:03)
[2017-06-14] MEDS: Finasteride 5 MG Tab PO SCH (07:44)
[2017-06-14] MEDS: Pseudoephedrine 30 MG Tab PO PRN (07:44)
[2017-06-14] MEDS: Polyethylene Glycol 3350 Powder 17 GM Packet PO PRN (07:44)
[2017-06-14] MEDS: Magnesium Oxide 400 MG Tab PO SCH ×2 (07:44→20:01)
[2017-06-14] MEDS: Miconazole 2% Top Powder 45 GM Container TOP SCH ×2 (07:45→20:02)
[2017-06-14] MEDS: metFORMIN 500 MG Tab PO SCH ×2 (07:45→17:37)
[2017-06-14] MEDS: Multivitamins with Iron/Calcium/Folic Acid/Minerals Tab PO SCH (07:45)
[2017-06-14] MEDS: diphenhydrAMINE 25 MG Cap PO SCH ×2 (07:45→20:02)
[2017-06-14] MEDS: buPROPion 150 MG Tab.ER PO SCH (07:45)
[2017-06-14] MEDS: Aspirin 81 MG Tab.EC PO SCH (07:45)
[2017-06-14] MEDS: Sodium Chloride 0.9% 10 ML Syringe IV PRN ×3 (09:35→22:23)
[2017-06-14] MEDS: Heparin Sodium 100 Units/ML 3 ML Syringe IVPUSH SCH ×2 (09:35→22:24)
[2017-06-14] MEDS: PROBIOTIC GUMMIES PO SCH (12:03)
[2017-06-14] MEDS: Tamsulosin 0.4 MG Cap.ER PO SCH (20:01)
[2017-06-14] MEDS: atorvaSTATin 40 MG Tab PO SCH (20:02)
[2017-06-15] MEDS: Omeprazole 20 MG Cap.CR PO SCH (06:11)
[2017-06-15] MEDS: EMPAGLIFLOZIN 25 MG PO SCH (08:43)
[2017-06-15] MEDS: Acetaminophen 325 MG Tab PO PRN (08:43)
[2017-06-15] MEDS: Fluticasone Propionate Nasal Spray 16 GM Bottle NASBOTH SCH (08:44)
[2017-06-15] MEDS: Heparin Sodium 100 Units/ML 3 ML Syringe IVPUSH PRN (08:44)
[2017-06-15] MEDS: Finasteride 5 MG Tab PO SCH (08:45)
[2017-06-15] MEDS: diphenhydrAMINE 25 MG Cap PO SCH ×2 (08:45→20:17)
[2017-06-15] MEDS: Hydrochlorothiazide 12.5 MG Cap PO SCH (08:46)
[2017-06-15] MEDS: Multivitamins with Iron/Calcium/Folic Acid/Minerals Tab PO SCH (08:46)
[2017-06-15] MEDS: Magnesium Oxide 400 MG Tab PO SCH ×2 (08:46→20:17)
[2017-06-15] MEDS: Aspirin 81 MG Tab.EC PO SCH (08:46)
[2017-06-15] MEDS: Losartan 50 MG Tab PO SCH (08:47)
[2017-06-15] MEDS: buPROPion 150 MG Tab.ER PO SCH (08:47)
[2017-06-15] MEDS: Docusate Sodium 100 MG Cap PO SCH ×2 (08:47→20:17)
[2017-06-15] MEDS: Metoprolol Succinate 25 MG Tab.ER PO SCH (08:47)
[2017-06-15] MEDS: Miconazole 2% Top Powder 45 GM Container TOP SCH ×2 (08:48→20:18)
[2017-06-15] MEDS: metFORMIN 500 MG Tab PO SCH ×2 (08:48→17:47)
[2017-06-15] MEDS: Pseudoephedrine 30 MG Tab PO PRN (08:50)
[2017-06-15 09:34] LABS: CHLORIDE,CL 105 mmol/L (98-107); SODIUM,NA 143 mmol/L (136-145)
[2017-06-15] MEDS: Heparin Sodium 100 Units/ML 3 ML Syringe IVPUSH SCH ×2 (10:54→22:32)
[2017-06-15] MEDS: Sodium Chloride 0.9% 10 ML Syringe IV PRN ×3 (10:54→22:32)
[2017-06-15] MEDS: PROBIOTIC GUMMIES PO SCH (12:00)
[2017-06-15] MEDS: Tamsulosin 0.4 MG Cap.ER PO SCH (20:17)
[2017-06-15] MEDS: atorvaSTATin 40 MG Tab PO SCH (20:17)
[2017-06-16] MEDS: Omeprazole 20 MG Cap.CR PO SCH (06:19)
[2017-06-16] MEDS: EMPAGLIFLOZIN 25 MG PO SCH (08:00)
[2017-06-16] MEDS: Fluticasone Propionate Nasal Spray 16 GM Bottle NASBOTH SCH (08:00)
[2017-06-16] MEDS: Docusate Sodium 100 MG Cap PO SCH ×2 (08:01→20:52)
[2017-06-16] MEDS: Aspirin 81 MG Tab.EC PO SCH (08:01)
[2017-06-16] MEDS: Magnesium Oxide 400 MG Tab PO SCH ×2 (08:01→20:52)
[2017-06-16] MEDS: metFORMIN 500 MG Tab PO SCH ×2 (08:01→18:25)
[2017-06-16] MEDS: Losartan 50 MG Tab PO SCH (08:02)
[2017-06-16] MEDS: diphenhydrAMINE 25 MG Cap PO SCH ×2 (08:02→20:51)
[2017-06-16] MEDS: buPROPion 150 MG Tab.ER PO SCH (08:02)
[2017-06-16] MEDS: Hydrochlorothiazide 12.5 MG Cap PO SCH (08:02)
[2017-06-16] MEDS: Finasteride 5 MG Tab PO SCH (08:02)
[2017-06-16] MEDS: Metoprolol Succinate 25 MG Tab.ER PO SCH (08:03)
[2017-06-16] MEDS: Multivitamins with Iron/Calcium/Folic Acid/Minerals Tab PO SCH (08:03)
[2017-06-16] MEDS: Acetaminophen 325 MG Tab PO PRN (08:03)
[2017-06-16] MEDS: Pseudoephedrine 30 MG Tab PO PRN (08:04)
[2017-06-16] MEDS: Sodium Chloride 0.9% 10 ML Syringe IV PRN ×3 (08:04→22:12)
[2017-06-16] MEDS: Miconazole 2% Top Powder 45 GM Container TOP SCH ×2 (08:49→20:52)
[2017-06-16] MEDS: Heparin Sodium 100 Units/ML 3 ML Syringe IVPUSH SCH ×2 (09:39→22:14)
[2017-06-16] MEDS: PROBIOTIC GUMMIES PO SCH (12:18)
[2017-06-16] MEDS: atorvaSTATin 40 MG Tab PO SCH (20:52)
[2017-06-16] MEDS: Tamsulosin 0.4 MG Cap.ER PO SCH (20:52)
[2017-06-17] MEDS: Omeprazole 20 MG Cap.CR PO SCH (06:33)
[2017-06-17] MEDS: metFORMIN 500 MG Tab PO SCH ×2 (07:48→18:06)
[2017-06-17] MEDS: Losartan 50 MG Tab PO SCH (07:48)
[2017-06-17] MEDS: Hydrochlorothiazide 12.5 MG Cap PO SCH (07:49)
[2017-06-17] MEDS: Magnesium Oxide 400 MG Tab PO SCH ×2 (07:49→21:03)
[2017-06-17] MEDS: Aspirin 81 MG Tab.EC PO SCH (07:49)
[2017-06-17] MEDS: diphenhydrAMINE 25 MG Cap PO SCH ×2 (07:50→21:02)
[2017-06-17] MEDS: Miconazole 2% Top Powder 45 GM Container TOP SCH ×2 (07:50→21:04)
[2017-06-17] MEDS: Docusate Sodium 100 MG Cap PO SCH ×2 (07:50→21:03)
[2017-06-17] MEDS: Multivitamins with Iron/Calcium/Folic Acid/Minerals Tab PO SCH (07:50)
[2017-06-17] MEDS: Finasteride 5 MG Tab PO SCH (07:51)
[2017-06-17] MEDS: Metoprolol Succinate 25 MG Tab.ER PO SCH (07:51)
[2017-06-17] MEDS: buPROPion 150 MG Tab.ER PO SCH (07:51)
[2017-06-17] MEDS: EMPAGLIFLOZIN 25 MG PO SCH (07:52)
[2017-06-17] MEDS: Acetaminophen 325 MG Tab PO PRN (07:52)
[2017-06-17] MEDS: Fluticasone Propionate Nasal Spray 16 GM Bottle NASBOTH SCH (07:52)
[2017-06-17] MEDS: Polyethylene Glycol 3350 Powder 17 GM Packet PO PRN (07:54)
[2017-06-17] MEDS: Sodium Chloride 0.9% 10 ML Syringe IV PRN (08:55)
[2017-06-17] MEDS: Heparin Sodium 100 Units/ML 3 ML Syringe IVPUSH SCH ×2 (10:01→22:30)
[2017-06-17] MEDS: PROBIOTIC GUMMIES PO SCH (12:04)
--- NOTE | 2017-06-17 17:30 | PCM.PN ---
- General Info Date of Service: 06/16/17 Admission Dx/Problem (Free Text): Subjective: Patient is doing well. He notes slight improvement in his strength. They standby but he is ambulatory the bathroom on his own. Still little bit weak on the left no longer requiring orthotic base. He has questions about returning to work. His and antibiotic date will be June 29. He'll be seeing ID eight days later. Repeat MRI will be indicated at some point as he will be at risk for recurrence of abscess/infection after vancomycin no longer suppressing. Blood pressure still running a bit high, asymptomatic. Rest of his lab markers including renal function and CRP look good. He is remaining afebrile. objective: Resting in chair in no acute distress hear are clear. Just slightly weaker in the right arm and leg. Some global deconditioning in limbs. a/p: Incr BP meds Continue to monitor vitals and labs, stable Complete vanc 2/ F/u ID REpeat MRI at some point Return to work per below He will soon be completing his course of antibiotics. He would not be considered contagious. He may return to sedentary work without direct client contact on June 25, 2017. One week later, around Jul 02, if he is tolerating this he may return to part-time duty around 20 hours a week with more regular direct client work as long as any lifting is limited to very light duty. He will need periodic absences from work the next couple months for outpatient physical therapy visits as well as for rechecks with the specialists in English. 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 - Patient Data Vitals - Most Recent: Last Vital Signs Temp 37.1 C 06/16/17 06:00 Pulse 91 06/17/17 07:51 Resp 16 06/16/17 06:00 BP 139/78 06/17/17 07:51 Pulse Ox 98 06/16/17 06:00 Weight - Most Recent: 87.884 kg I&O - Last 24 Hours: Intake & Output 06/17/17 06/17/17 06/17/17 06:59 14:59 22:59 Intake Total 250 915 Balance 250 915 Lab Results Last 24 Hours: Laboratory Results - last 24 hr 01/24/18 01/24/18 Range/Units 06:01 16:56 POC Glucose 81 128 H (74-106) mg/dL Med Orders - Current: Current Medications Acetaminophen (Tylenol) 650 mg PO Q6H PRN PRN Reason: pain Last Admin: 06/17/17 07:52 Dose: 650 mg Alteplase, Recombinant (Cathflo Activase) 2 mg IV ASDIRECTED PRN PRN Reason: PICC OCCLUSION Last Admin: 06/14/17 17:50 Dose: 2 mg Aspirin (Halfprin) 81 mg PO DAILY [facility] Last Admin: 06/17/17 07:49 Dose: 81 mg Atorvastatin Calcium (Lipitor) 40 mg PO BEDTIME [facility] Last Admin: 06/16/17 20:52 Dose: 40 mg Bupropion HCl (Wellbutrin Xl) 150 mg PO DAILY [facility] Last Admin: 06/17/17 07:51 Dose: 150 mg Calcium Carbonate/Glycine (Tums Extra Strength) 750 mg PO Q2H PRN PRN Reason: Dyspepsia Diphenhydramine HCl (Benadryl) 25 mg PO Q6H PRN PRN Reason: ITCHING Diphenhydramine HCl (Benadryl) 50 mg PO Q12HR [facility] Last Admin: 06/17/17 07:50 Dose: 50 mg Docusate Sodium (Colace) 100 mg PO BID [facility] Last Admin: 06/17/17 07:50 Dose: 100 mg Finasteride (Proscar) 5 mg PO DAILY [facility] Last Admin: 06/17/17 07:51 Dose: 5 mg Fluticasone Propionate (Flonase) 0 gm NASBOTH DAILY [facility] Last Admin: 06/17/17 07:52 Dose: 1 spray Heparin Sodium (Porcine) (Heparin Lock Flush 100 Units/Ml) 300 unit IVPUSH ASDIRECTED PRN PRN Reason: picc flush Last Admin: 06/15/17 08:44 Dose: 300 unit Heparin Sodium (Porcine) (Heparin Lock Flush 100 Units/Ml) 300 unit IVPUSH BID@ 1030,2230 [facility] Last Admin: 06/17/17 10:01 Dose: 300 unit Hydrochlorothiazide (Hydrochlorothiazide) 25 mg PO DAILY [facility] Last Admin: 06/17/17 07:49 Dose: 25 mg Vancomycin HCl 1 gm/ Sodium (Chloride) 250 mls @ 250 mls/hr IV Q12H [facility] Last Admin: 06/17/17 08:55 Dose: 250 mls/hr Losartan Potassium (Cozaar) 100 mg PO DAILY [facility] Last Admin: 06/17/17 07:48 Dose: 100 mg Magnesium Oxide (Magnesium Oxide) 400 mg PO BID [facility] Last Admin: 06/17/17 07:49 Dose: 400 mg Metformin HCl (Glucophage) 1,000 mg PO BIDM [facility] Last Admin: 06/17/17 07:48 Dose: 1,000 mg Metoprolol Succinate (Toprol Xl) 25 mg PO DAILY [facility] Last Admin: 06/17/17 07:51 Dose: 25 mg Miconazole (Desenex 2%) 0 gm TOP BID [facility] Last Admin: 06/17/17 07:50 Dose: 1 applic Multivitamins/Minerals (Thera M Plus) 1 tab PO DAILY [facility] Last Admin: 06/17/17 07:50 Dose: 1 tab Empagliflozin [ Jardiance] 25mg Patients Own Med 25 mg PO DAILY [facility] Last Admin: 06/17/17 07:52 Dose: 25 mg Probiotic Gummies ( (Own Supply)) 0 each PO DAILY@1200 [facility] Last Admin: 06/17/17 12:04 Dose: 2 each Omeprazole (Omeprazole) 20 mg PO ACBRK [facility] Last Admin: 06/17/17 06:33 Dose: 20 mg Ondansetron HCl (Zofran) 4 mg IV Q6H PRN PRN Reason: Nausea/Vomiting Polyethylene Glycol (Miralax) 17 gm PO Q12H PRN PRN Reason: Constipation Last Admin: 06/17/17 07:54 Dose: 17 gm Pseudoephedrine HCl (Sudogest) 30 mg PO Q6H PRN PRN Reason: Congestion Last Admin: 06/16/17 08:04 Dose: 30 mg Sodium Chloride (Saline Flush) 10 ml IV ASDIRECTED PRN PRN Reason: Keep Vein Open Last Admin: 06/17/17 08:55 Dose: 10 ml Tamsulosin HCl (Flomax) 0.4 mg PO BEDTIME [facility] Last Admin: 06/16/17 20:52 Dose: 0.4 mg Vancomycin HCl (Pharmacy To Dose - Vancomycin) 1 dose .XX ASDIRECTED [facility] Discontinued Medications Acetaminophen (Tylenol) 650 mg PO TID [facility] Last Admin: 06/01/17 12:16 Dose: Not Given Diphenhydramine HCl (Benadryl) 50 mg PO ONETIME ONE Stop: 05/29/17 15:31 Last Admin: 05/29/17 16:20 Dose: 50 mg Diphenhydramine HCl (Benadryl) 50 mg PO Q12H [facility] Stop: 05/30/17 23:59 Last Admin: 05/30/17 23:26 Dose: 50 mg Diphenhydramine HCl (Benadryl) 50 mg PO Q12H [facility] Last Admin: 06/02/17 07:42 Dose: 50 mg Fluticasone Propionate (Flonase) 0 gm NASBOTH DAILY PRN PRN Reason: CONGESTION Last Admin: 06/01/17 07:32 Dose: 1 spray Fluticasone Propionate (Flonase) 0 gm NASBOTH DAILY PRN PRN Reason: CONGESTION Heparin Sodium (Porcine) (Heparin Lock Flush 100 Units/Ml) 300 unit IVPUSH ONETIME ONE Stop: 05/29/17 17:01 Last Admin: 05/29/17 17:57 Dose: 300 unit Heparin Sodium (Porcine) (Heparin Lock Flush 100 Units/Ml) 300 unit IVPUSH ONETIME ONE Stop: 05/30/17 04:01 Last Admin: 05/30/17 03:37 Dose: 300 unit Heparin Sodium (Porcine) (Heparin Lock Flush 100 Units/Ml) 300 unit IVPUSH ONETIME ONE Stop: 05/30/17 15:01 Last Admin: 05/30/17 15:47 Dose: 300 unit Heparin Sodium (Porcine) (Heparin Lock Flush 100 Units/Ml) 300 unit IVPUSH ONETIME ONE Stop: 05/31/17 02:01 Last Admin: 05/31/17 02:33 Dose: 300 unit Heparin Sodium (Porcine) (Heparin Lock Flush 100 Units/Ml) 300 unit IVPUSH Q12H [facility] Last Admin: 06/02/17 10:45 Dose: 300 unit Heparin Sodium (Porcine) (Heparin Lock Flush 100 Units/Ml) 300 unit IVPUSH BID@ 1100,2300 [facility] Last Admin: 06/04/17 10:30 Dose: 300 unit Hydrochlorothiazide (Hydrochlorothiazide) 25 mg PO ONETIME ONE Stop: 05/29/17 18:24 Last Admin: 05/29/17 19:51 Dose: 25 mg Hydrochlorothiazide (Hydrochlorothiazide) 12.5 mg PO DAILY [facility] Last Admin: 06/16/17 08:02 Dose: 12.5 mg Vancomycin HCl 1.75 gm/ Sodium (Chloride) 500 mls @ 170 mls/hr IV ONETIME ONE Stop: 05/29/17 17:11 Last Admin: 05/29/17 14:41 Dose: 170 mls/hr Vancomycin HCl 1.75 gm/ Sodium (Chloride) 500 mls @ 170 mls/hr IV ONETIME ONE Stop: 05/30/17 03:56 Last Admin: 05/30/17 00:44 Dose: 170 mls/hr Vancomycin HCl 1.75 gm/ Sodium (Chloride) 500 mls @ 170 mls/hr IV ONETIME ONE Stop: 05/30/17 14:56 Last Admin: 05/30/17 12:27 Dose: 170 mls/hr Vancomycin HCl 1.75 gm/ Sodium (Chloride) 500 mls @ 170 mls/hr IV ONETIME ONE Stop: 05/31/17 01:56 Last Admin: 05/30/17 23:26 Dose: 170 mls/hr Vancomycin HCl 1.75 gm/ Sodium (Chloride) 500 mls @ 170 mls/hr IV Q12H [facility] Last Admin: 06/01/17 10:40 Dose: 170 mls/hr Vancomycin HCl 1.5 gm/ Sodium (Chloride) 500 mls @ 170 mls/hr IV Q12H [facility] Stop: 06/01/17 16:00 Last Admin: 06/01/17 10:59 Dose: 170 mls/hr Vancomycin HCl 1.25 gm/ Sodium (Chloride) 430 mls @ 145 mls/hr IV BID [facility] Last Admin: 06/04/17 08:40 Dose: 145 mls/hr Vancomycin HCl 1.25 gm/ Sodium (Chloride) 250 mls @ 175 mls/hr IV BID@0900, 2100 [facility] Last Admin: 06/11/17 11:15 Dose: Not Given Losartan Potassium (Cozaar) 50 mg PO ONETIME ONE Stop: 05/29/17 18:24 Last Admin: 05/29/17 19:50 Dose: 50 mg Losartan Potassium (Cozaar) 50 mg PO DAILY [facility] Last Admin: 06/16/17 08:02 Dose: 50 mg Niacin (Niaspan) 1,000 mg PO DAILY [facility] Last Admin: 06/02/17 07:47 Dose: Not Given Omeprazole (Omeprazole) 20 mg PO DAILY [facility] Last Admin: 06/02/17 07:39 Dose: 20 mg Polyethylene Glycol (Miralax) 17 gm PO Q12H [facility] Last Admin: 05/31/17 09:14 Dose: Not Given Potassium Chloride (Klor-Con M20) 40 meq PO ONETIME ONE Stop: 06/09/17 10:59 Last Admin: 06/09/17 11:16 Dose: 40 meq - Problem List Review Problem List Initiated/Reviewed/Updated: Yes - My Orders Last 24 Hours: My Active Orders 06/17/17 08:00 Hydrochlorothiazide 25 mg PO DAILY Losartan [Cozaar] 100 mg PO DAILY 06/18/17 08:30 CREATININE W/GFR [CHEM] Q7D VANCOMYCIN TROUGH [CHEM] Q7D 06/19/17 10:15 PT Evaluation and Treatment [CONS] ONETIME 06/22/17 08:30 C-REACTIVE PROTEIN [CHEM] Q7D CBC WITH AUTO DIFF [HEME] Q7D CMP [COMPREHENSIVE METABOLIC PN,CMP] [CHEM] Q7D SEDIMENTATION RATE AUTO [HEME] Q7D VANCOMYCIN TROUGH [CHEM] Q7D 06/24/17 10:00 Communication Order [RC] Q7D 06/25/17 08:30 CREATININE W/GFR [CHEM] Q7D VANCOMYCIN TROUGH [CHEM] Q7D 06/29/17 08:30 C-REACTIVE PROTEIN [CHEM] Q7D CBC WITH AUTO DIFF [HEME] Q7D CMP [COMPREHENSIVE METABOLIC PN,CMP] [CHEM] Q7D SEDIMENTATION RATE AUTO [HEME] Q7D VANCOMYCIN TROUGH [CHEM] Q7D
[2017-06-17] MEDS: Tamsulosin 0.4 MG Cap.ER PO SCH (21:03)
[2017-06-17] MEDS: atorvaSTATin 40 MG Tab PO SCH (21:03)
[2017-06-18] MEDS: Omeprazole 20 MG Cap.CR PO SCH (06:47)
[2017-06-18] MEDS: diphenhydrAMINE 25 MG Cap PO SCH ×2 (08:22→20:53)
[2017-06-18] MEDS: Docusate Sodium 100 MG Cap PO SCH ×2 (08:23→20:53)
[2017-06-18] MEDS: Miconazole 2% Top Powder 45 GM Container TOP SCH ×2 (08:23→20:54)
[2017-06-18] MEDS: Hydrochlorothiazide 12.5 MG Cap PO SCH (08:23)
[2017-06-18] MEDS: Losartan 50 MG Tab PO SCH (08:23)
[2017-06-18] MEDS: Aspirin 81 MG Tab.EC PO SCH (08:23)
[2017-06-18] MEDS: buPROPion 150 MG Tab.ER PO SCH (08:24)
[2017-06-18] MEDS: Multivitamins with Iron/Calcium/Folic Acid/Minerals Tab PO SCH (08:24)
[2017-06-18] MEDS: Magnesium Oxide 400 MG Tab PO SCH ×2 (08:24→20:53)
[2017-06-18] MEDS: metFORMIN 500 MG Tab PO SCH ×2 (08:24→18:33)
[2017-06-18] MEDS: Metoprolol Succinate 25 MG Tab.ER PO SCH (08:24)
[2017-06-18] MEDS: Finasteride 5 MG Tab PO SCH (08:25)
[2017-06-18] MEDS: Acetaminophen 325 MG Tab PO PRN (08:25)
[2017-06-18] MEDS: Pseudoephedrine 30 MG Tab PO PRN (08:26)
[2017-06-18] MEDS: Fluticasone Propionate Nasal Spray 16 GM Bottle NASBOTH SCH (08:27)
[2017-06-18] MEDS: EMPAGLIFLOZIN 25 MG PO SCH (08:27)
[2017-06-18] MEDS: Heparin Sodium 100 Units/ML 3 ML Syringe IVPUSH PRN (08:37)
[2017-06-18] MEDS: Heparin Sodium 100 Units/ML 3 ML Syringe IVPUSH SCH ×2 (11:05→21:46)
[2017-06-18] MEDS: PROBIOTIC GUMMIES PO SCH (12:19)
[2017-06-18] MEDS: atorvaSTATin 40 MG Tab PO SCH (20:53)
[2017-06-18] MEDS: Tamsulosin 0.4 MG Cap.ER PO SCH (20:53)
[2017-06-19] MEDS: Omeprazole 20 MG Cap.CR PO SCH (06:14)
[2017-06-19] MEDS ORDERED: Vancomycin 1 GM SDV ONE (07:43)
[2017-06-19] MEDS: Aspirin 81 MG Tab.EC PO SCH (08:10)
[2017-06-19] MEDS: Magnesium Oxide 400 MG Tab PO SCH ×2 (08:10→19:49)
[2017-06-19] MEDS: diphenhydrAMINE 25 MG Cap PO SCH ×2 (08:11→19:48)
[2017-06-19] MEDS: Docusate Sodium 100 MG Cap PO SCH ×2 (08:11→19:49)
[2017-06-19] MEDS: Multivitamins with Iron/Calcium/Folic Acid/Minerals Tab PO SCH (08:12)
[2017-06-19] MEDS: Hydrochlorothiazide 12.5 MG Cap PO SCH (08:12)
[2017-06-19] MEDS: Finasteride 5 MG Tab PO SCH (08:12)
[2017-06-19] MEDS: metFORMIN 500 MG Tab PO SCH ×2 (08:12→17:11)
[2017-06-19] MEDS: Metoprolol Succinate 25 MG Tab.ER PO SCH (08:13)
[2017-06-19] MEDS: Losartan 50 MG Tab PO SCH (08:13)
[2017-06-19] MEDS: Acetaminophen 325 MG Tab PO PRN (08:14)
[2017-06-19] MEDS: buPROPion 150 MG Tab.ER PO SCH (08:14)
[2017-06-19] MEDS: Fluticasone Propionate Nasal Spray 16 GM Bottle NASBOTH SCH (08:15)
[2017-06-19] MEDS: EMPAGLIFLOZIN 25 MG PO SCH (08:15)
[2017-06-19] MEDS: Miconazole 2% Top Powder 45 GM Container TOP SCH ×2 (08:16→19:48)
[2017-06-19] MEDS: Sodium Chloride 0.9% 10 ML Syringe IV PRN ×4 (08:59→22:55)
[2017-06-19] MEDS: Heparin Sodium 100 Units/ML 3 ML Syringe IVPUSH SCH ×2 (10:03→22:54)
[2017-06-19] MEDS: Polyethylene Glycol 3350 Powder 17 GM Packet PO PRN (17:11)
[2017-06-19] MEDS: PROBIOTIC GUMMIES PO SCH (17:11)
[2017-06-19] MEDS: Tamsulosin 0.4 MG Cap.ER PO SCH (19:49)
[2017-06-19] MEDS: atorvaSTATin 40 MG Tab PO SCH (19:49)
[2017-06-20] MEDS: Omeprazole 20 MG Cap.CR PO SCH (06:21)
[2017-06-20] MEDS: Aspirin 81 MG Tab.EC PO SCH (08:07)
[2017-06-20] MEDS: metFORMIN 500 MG Tab PO SCH ×2 (08:08→18:13)
[2017-06-20] MEDS: Magnesium Oxide 400 MG Tab PO SCH ×2 (08:08→19:46)
[2017-06-20] MEDS: Hydrochlorothiazide 12.5 MG Cap PO SCH (08:08)
[2017-06-20] MEDS: Losartan 50 MG Tab PO SCH (08:08)
[2017-06-20] MEDS: Multivitamins with Iron/Calcium/Folic Acid/Minerals Tab PO SCH (08:09)
[2017-06-20] MEDS: diphenhydrAMINE 25 MG Cap PO SCH ×2 (08:09→19:45)
[2017-06-20] MEDS: Pseudoephedrine 30 MG Tab PO PRN (08:09)
[2017-06-20] MEDS: Finasteride 5 MG Tab PO SCH (08:09)
[2017-06-20] MEDS: Docusate Sodium 100 MG Cap PO SCH ×2 (08:09→19:46)
[2017-06-20] MEDS: buPROPion 150 MG Tab.ER PO SCH (08:09)
[2017-06-20] MEDS: Metoprolol Succinate 25 MG Tab.ER PO SCH (08:10)
[2017-06-20] MEDS: Acetaminophen 325 MG Tab PO PRN (08:10)
[2017-06-20] MEDS: Fluticasone Propionate Nasal Spray 16 GM Bottle NASBOTH SCH (08:11)
[2017-06-20] MEDS: Miconazole 2% Top Powder 45 GM Container TOP SCH ×2 (08:11→19:46)
[2017-06-20] MEDS: EMPAGLIFLOZIN 25 MG PO SCH (08:11)
[2017-06-20] MEDS: Sodium Chloride 0.9% 10 ML Syringe IV PRN ×3 (09:27→21:36)
[2017-06-20] MEDS: Heparin Sodium 100 Units/ML 3 ML Syringe IVPUSH SCH ×2 (10:38→23:06)
[2017-06-20] MEDS: PROBIOTIC GUMMIES PO SCH (12:06)
[2017-06-20] MEDS: Tamsulosin 0.4 MG Cap.ER PO SCH (19:45)
[2017-06-20] MEDS: atorvaSTATin 40 MG Tab PO SCH (19:46)
[2017-06-21] MEDS: Omeprazole 20 MG Cap.CR PO SCH (06:17)
[2017-06-21] MEDS: EMPAGLIFLOZIN 25 MG PO SCH (08:02)
[2017-06-21] MEDS: Fluticasone Propionate Nasal Spray 16 GM Bottle NASBOTH SCH (08:02)
[2017-06-21] MEDS: Hydrochlorothiazide 12.5 MG Cap PO SCH (08:02)
[2017-06-21] MEDS: Finasteride 5 MG Tab PO SCH (08:02)
[2017-06-21] MEDS: Losartan 50 MG Tab PO SCH (08:03)
[2017-06-21] MEDS: Metoprolol Succinate 25 MG Tab.ER PO SCH (08:03)
[2017-06-21] MEDS: Docusate Sodium 100 MG Cap PO SCH ×2 (08:04→20:16)
[2017-06-21] MEDS: diphenhydrAMINE 25 MG Cap PO SCH ×2 (08:04→20:16)
[2017-06-21] MEDS: metFORMIN 500 MG Tab PO SCH ×2 (08:04→17:14)
[2017-06-21] MEDS: Pseudoephedrine 30 MG Tab PO PRN (08:05)
[2017-06-21] MEDS: Magnesium Oxide 400 MG Tab PO SCH ×2 (08:05→20:16)
[2017-06-21] MEDS: Acetaminophen 325 MG Tab PO PRN (08:05)
[2017-06-21] MEDS: Multivitamins with Iron/Calcium/Folic Acid/Minerals Tab PO SCH (08:05)
[2017-06-21] MEDS: Aspirin 81 MG Tab.EC PO SCH (08:05)
[2017-06-21] MEDS: buPROPion 150 MG Tab.ER PO SCH (08:05)
[2017-06-21] MEDS: Miconazole 2% Top Powder 45 GM Container TOP SCH ×2 (08:06→20:16)
[2017-06-21] MEDS: Polyethylene Glycol 3350 Powder 17 GM Packet PO PRN (08:06)
[2017-06-21] MEDS: Sodium Chloride 0.9% 10 ML Syringe IV PRN ×3 (09:02→21:43)
[2017-06-21] MEDS: Heparin Sodium 100 Units/ML 3 ML Syringe IVPUSH SCH ×2 (10:12→22:59)
[2017-06-21] MEDS: PROBIOTIC GUMMIES PO SCH (12:15)
[2017-06-21] MEDS: atorvaSTATin 40 MG Tab PO SCH (20:15)
[2017-06-21] MEDS: Tamsulosin 0.4 MG Cap.ER PO SCH (20:16)
[2017-06-22] MEDS: Omeprazole 20 MG Cap.CR PO SCH (06:04)
[2017-06-22] MEDS: diphenhydrAMINE 25 MG Cap PO SCH ×2 (08:51→20:46)
[2017-06-22] MEDS: Docusate Sodium 100 MG Cap PO SCH ×2 (08:51→20:47)
[2017-06-22] MEDS: Losartan 50 MG Tab PO SCH (08:51)
[2017-06-22] MEDS: Miconazole 2% Top Powder 45 GM Container TOP SCH ×2 (08:52→11:37)
[2017-06-22] MEDS: Fluticasone Propionate Nasal Spray 16 GM Bottle NASBOTH SCH (08:53)
[2017-06-22] MEDS: EMPAGLIFLOZIN 25 MG PO SCH (08:53)
[2017-06-22] MEDS: metFORMIN 500 MG Tab PO SCH ×2 (08:53→17:35)
[2017-06-22] MEDS: Hydrochlorothiazide 12.5 MG Cap PO SCH (08:54)
[2017-06-22] MEDS: Aspirin 81 MG Tab.EC PO SCH (08:54)
[2017-06-22] MEDS: Magnesium Oxide 400 MG Tab PO SCH ×2 (08:54→20:46)
[2017-06-22] MEDS: Finasteride 5 MG Tab PO SCH (08:55)
[2017-06-22] MEDS: Multivitamins with Iron/Calcium/Folic Acid/Minerals Tab PO SCH (08:55)
[2017-06-22] MEDS: Metoprolol Succinate 25 MG Tab.ER PO SCH (08:55)
[2017-06-22] MEDS: buPROPion 150 MG Tab.ER PO SCH (08:56)
[2017-06-22] MEDS: Acetaminophen 325 MG Tab PO PRN ×2 (08:57→22:49)
[2017-06-22] MEDS: Pseudoephedrine 30 MG Tab PO PRN (08:58)
[2017-06-22 09:02] LABS: CHLORIDE,CL 103 mmol/L (98-107); SODIUM,NA 143 mmol/L (136-145)
[2017-06-22] MEDS: Heparin Sodium 100 Units/ML 3 ML Syringe IVPUSH SCH ×2 (11:20→21:57)
[2017-06-22] MEDS: PROBIOTIC GUMMIES PO SCH (11:21)
[2017-06-22] MEDS: Sodium Chloride 0.9% 10 ML Syringe IV PRN (11:21)
[2017-06-22] MEDS ORDERED: Miconazole 2% Top Powder 45 GM Container TOP PRN (11:39)
[2017-06-22] MEDS ORDERED: Potassium Chloride 10 MEQ Tab.ER PO ONE (17:16)
[2017-06-22] MEDS: atorvaSTATin 40 MG Tab PO SCH (20:46)
[2017-06-22] MEDS: Tamsulosin 0.4 MG Cap.ER PO SCH (20:46)
[2017-06-23] MEDS: Omeprazole 20 MG Cap.CR PO SCH (06:05)
[2017-06-23] MEDS: Docusate Sodium 100 MG Cap PO SCH ×2 (07:48→20:11)
[2017-06-23] MEDS: buPROPion 150 MG Tab.ER PO SCH (07:48)
[2017-06-23] MEDS: Hydrochlorothiazide 12.5 MG Cap PO SCH (07:48)
[2017-06-23] MEDS: diphenhydrAMINE 25 MG Cap PO SCH ×2 (07:48→20:10)
[2017-06-23] MEDS: Metoprolol Succinate 25 MG Tab.ER PO SCH (07:48)
[2017-06-23] MEDS: Finasteride 5 MG Tab PO SCH (07:49)
[2017-06-23] MEDS: metFORMIN 500 MG Tab PO SCH ×2 (07:49→17:30)
[2017-06-23] MEDS: EMPAGLIFLOZIN 25 MG PO SCH (07:49)
[2017-06-23] MEDS: Losartan 50 MG Tab PO SCH (07:49)
[2017-06-23] MEDS: Fluticasone Propionate Nasal Spray 16 GM Bottle NASBOTH SCH (07:49)
[2017-06-23] MEDS: Magnesium Oxide 400 MG Tab PO SCH ×2 (07:49→20:11)
[2017-06-23] MEDS: Pseudoephedrine 30 MG Tab PO PRN (07:50)
[2017-06-23] MEDS: Acetaminophen 325 MG Tab PO PRN (07:50)
[2017-06-23] MEDS: Aspirin 81 MG Tab.EC PO SCH (07:50)
[2017-06-23] MEDS: Multivitamins with Iron/Calcium/Folic Acid/Minerals Tab PO SCH (07:50)
[2017-06-23] MEDS: Sodium Chloride 0.9% 10 ML Syringe IV PRN (10:15)
[2017-06-23] MEDS: Heparin Sodium 100 Units/ML 3 ML Syringe IVPUSH SCH ×2 (10:15→22:30)
[2017-06-23] MEDS: PROBIOTIC GUMMIES PO SCH (13:14)
[2017-06-23] MEDS: atorvaSTATin 40 MG Tab PO SCH (20:10)
[2017-06-23] MEDS: Terbinafine 1% Crm 30 GM Tube TOP SCH (20:11)
[2017-06-23] MEDS: Tamsulosin 0.4 MG Cap.ER PO SCH (20:12)
[2017-06-24] MEDS: Acetaminophen 325 MG Tab PO PRN (04:48)
[2017-06-24] MEDS: Omeprazole 20 MG Cap.CR PO SCH ×2 (05:45→06:03)
[2017-06-24] MEDS: Losartan 50 MG Tab PO SCH (08:00)
[2017-06-24] MEDS: Docusate Sodium 100 MG Cap PO SCH ×2 (08:00→19:48)
[2017-06-24] MEDS: diphenhydrAMINE 25 MG Cap PO SCH ×2 (08:00→19:48)
[2017-06-24] MEDS: metFORMIN 500 MG Tab PO SCH ×2 (08:01→17:49)
[2017-06-24] MEDS: Finasteride 5 MG Tab PO SCH (08:02)
[2017-06-24] MEDS: Magnesium Oxide 400 MG Tab PO SCH ×2 (08:02→19:48)
[2017-06-24] MEDS: Multivitamins with Iron/Calcium/Folic Acid/Minerals Tab PO SCH (08:02)
[2017-06-24] MEDS: Metoprolol Succinate 25 MG Tab.ER PO SCH (08:02)
[2017-06-24] MEDS: Hydrochlorothiazide 12.5 MG Cap PO SCH (08:02)
[2017-06-24] MEDS: Aspirin 81 MG Tab.EC PO SCH (08:02)
[2017-06-24] MEDS: buPROPion 150 MG Tab.ER PO SCH (08:03)
[2017-06-24] MEDS: Pseudoephedrine 30 MG Tab PO PRN (08:04)
[2017-06-24] MEDS: Polyethylene Glycol 3350 Powder 17 GM Packet PO PRN (08:05)
[2017-06-24] MEDS: EMPAGLIFLOZIN 25 MG PO SCH (08:06)
[2017-06-24] MEDS: Fluticasone Propionate Nasal Spray 16 GM Bottle NASBOTH SCH (08:06)
[2017-06-24] MEDS: Terbinafine 1% Crm 30 GM Tube TOP SCH ×2 (10:22→19:49)
[2017-06-24] MEDS: Heparin Sodium 100 Units/ML 3 ML Syringe IVPUSH SCH ×2 (10:22→23:38)
[2017-06-24] MEDS: Sodium Chloride 0.9% 10 ML Syringe IV PRN (10:22)
[2017-06-24] MEDS: PROBIOTIC GUMMIES PO SCH (12:23)
[2017-06-24] MEDS: Tamsulosin 0.4 MG Cap.ER PO SCH (19:48)
[2017-06-24] MEDS: atorvaSTATin 40 MG Tab PO SCH (19:49)
[2017-06-25] MEDS: Omeprazole 20 MG Cap.CR PO SCH (06:09)
[2017-06-25] MEDS: Sodium Chloride 0.9% 10 ML Syringe IV PRN ×3 (08:22→22:24)
[2017-06-25] MEDS: Heparin Sodium 100 Units/ML 3 ML Syringe IVPUSH PRN (08:22)
[2017-06-25] MEDS: Metoprolol Succinate 25 MG Tab.ER PO SCH (08:41)
[2017-06-25] MEDS: Aspirin 81 MG Tab.EC PO SCH (08:41)
[2017-06-25] MEDS: Multivitamins with Iron/Calcium/Folic Acid/Minerals Tab PO SCH (08:41)
[2017-06-25] MEDS: Finasteride 5 MG Tab PO SCH (08:42)
[2017-06-25] MEDS: diphenhydrAMINE 25 MG Cap PO SCH ×2 (08:42→20:11)
[2017-06-25] MEDS: Pseudoephedrine 30 MG Tab PO PRN (08:42)
[2017-06-25] MEDS: buPROPion 150 MG Tab.ER PO SCH (08:42)
[2017-06-25] MEDS: metFORMIN 500 MG Tab PO SCH ×2 (08:42→17:23)
[2017-06-25] MEDS: Docusate Sodium 100 MG Cap PO SCH ×2 (08:42→20:11)
[2017-06-25] MEDS: Losartan 50 MG Tab PO SCH (08:42)
[2017-06-25] MEDS: Magnesium Oxide 400 MG Tab PO SCH ×2 (08:42→20:11)
[2017-06-25] MEDS: Hydrochlorothiazide 12.5 MG Cap PO SCH (08:42)
[2017-06-25] MEDS: Fluticasone Propionate Nasal Spray 16 GM Bottle NASBOTH SCH (08:45)
[2017-06-25] MEDS: EMPAGLIFLOZIN 25 MG PO SCH (08:45)
[2017-06-25] MEDS: Terbinafine 1% Crm 30 GM Tube TOP SCH ×2 (08:47→20:11)
[2017-06-25] MEDS: Heparin Sodium 100 Units/ML 3 ML Syringe IVPUSH SCH ×2 (10:59→22:23)
[2017-06-25] MEDS: PROBIOTIC GUMMIES PO SCH (12:39)
--- NOTE | 2017-06-25 17:10 | PCM.DCSUM1 ---
Discharge Summary - Hospital Course Free Text/Narrative:: Admitted swing bed for long-term vancomycin for complicated spinal abscess not surgical candidate for cervical component, had lumbar decompression of abscess. Didn't have to go back to [place] after he developed drainage here. Grew MSSA. Marilee on Ancef, thought he may have failed dyspnea developed second abscess was switched to nafcillin. Developed rash after this. Subsequent he switched to vancomycin which she is tolerated. His insurance is running out to do four more days of this outpatient. Infectious disease would then like him to start doxycycline. Unclear how long they'll do this. They will be following his infection markers. If he has recurrence of fevers or worsening neurologic symptoms get a need repeat MRI imaging and possible subspecialist eval a tertiary center. Blood pressures been borderline here potassium a bit low, nothing too worrisome. We've been titrating his hydrochlorothiazide and losartan. Still having some urinary issues, probably has a BPH at baseline he may have a mild neurogenic bladder secondary to cord issues from above infection. Neurosurgery did not see anything concerning on reevaluation. He is on finasteride plus Flomax. He will begin gradual return to work light duty. - Discharge Data Discharge Date: 06/25/17 Discharge Disposition: Home, Self-Care 01 Condition: Good - Patient Summary/Data Consults: Consultations 05/29/17 18:32 OT Evaluation and Treatment [CONS] Routine PT Evaluation and Treatment [CONS] Routine 06/19/17 10:15 PT Evaluation and Treatment [CONS] ONETIME - Discharge Plan Home Medications: Home Meds Aspirin [Halfprin] 81 mg PO DAILY 09/04/13 [History] Clobetasol [Clobetasol Propionate 0.05%] 1 gram TOP BID 09/04/13 [History] atorvaSTATin [Lipitor] 40 mg PO BEDTIME 09/04/13 [History] buPROPion [buPROPion XL] 150 mg PO DAILY 09/04/13 [History] metFORMIN [Glucophage] 1,000 mg PO BIDM 09/04/13 [History] Empagliflozin [Jardiance] 25 mg PO DAILY 04/09/17 [History] Fluticasone Propionate [Flonase] 1 spray NASBOTH DAILY PRN 04/09/17 [History] Non-Formulary Medication [NF Drug] 50 - 100 mg PO ASDIRECTED PRN 04/09/17 [ History] Tamsulosin [Flomax] 0.4 mg PO BEDTIME 04/09/17 [History] Acetaminophen [Tylenol] 650 mg PO TID tablet 05/02/17 [Rx] Finasteride [Proscar] 5 mg PO DAILY tablet 05/02/17 [Rx] Magnesium Oxide 400 mg PO BID tablet 05/02/17 [Rx] Miconazole [Desenex 2%] 1 applic TOP BID 05/05/17 [History] Non-Formulary Medication [NF Drug] 2 tab PO DAILY 05/05/17 [History] Metoprolol Succinate 25 mg PO DAILY 05/29/17 [History] Multivitamin [Multi-Vitamin Daily] 1 tab PO DAILY 05/29/17 [History] Vancomycin/0.9 % Sod Chloride [Vanco 1.75 gm/500 ml-0.9% NaCl] 1.75 gm IV Q12H 05/29/17 [History] Acetaminophen [Tylenol] 650 mg PO Q6H PRN tablet 06/25/17 [Rx] Calcium Carbonate [Tums Extra Strength] 750 mg PO Q2H PRN tab.chew 06/25/17 [Rx ] Hydrochlorothiazide 25 mg PO DAILY cap 06/25/17 [Rx] Losartan [Cozaar] 100 mg PO DAILY tablet 06/25/17 [Rx] Omeprazole 20 mg PO ACBRK cap.cr 06/25/17 [Rx] Probiotic Gummies 0 each PO DAILY@1200 06/25/17 [Rx] Pseudoephedrine [Sudogest] 30 mg PO Q6H PRN tablet 06/25/17 [Rx] Terbinafine [LamISIL AT 1% Crm] 2 g TOP BID tube 06/25/17 [Rx] Vancomycin 1 gm IV Q12H sdv 06/25/17 [Rx] Vancomycin Pharmacy to Dose [Pharmacy to Dose - Vancomycin] 1 dose .XX ASDIRECTED each 06/25/17 [Rx] - Patient Data Vitals - Most Recent: Last Vital Signs Temp 36.1 C 06/25/17 04:38 Pulse 88 06/25/17 08:41 Resp 19 06/25/17 04:38 BP 147/86 H 06/25/17 08:42 Pulse Ox 97 06/25/17 04:38 Weight - Most Recent: 87.884 kg I&O - Last 24 hours: Intake & Output 06/25/17 06/25/17 06/25/17 06:59 14:59 22:59 Intake Total 250 790 Balance 250 790 Lab Results - Last 24 hrs: Laboratory Results - last 24 hr 06/24/17 06/25/17 06/25/17 Range/Units 17:06 06:13 08:25 Creatinine 0.9 (0.70-1.30) mg/dL Est Cr Clr Drug Dosing 92.74 mL/min Estimated GFR (MDRD) > 60 POC Glucose 93 74 (74-106) mg/dL Vancomycin Trough 19.1 H (5.0-10.0) ug/mL 06/25/17 Range/Units 16:35 Creatinine (0.70-1.30) mg/dL Est Cr Clr Drug Dosing mL/min Estimated GFR (MDRD) POC Glucose 82 (74-106) mg/dL Vancomycin Trough (5.0-10.0) ug/mL Med Orders - Current: Current Medications Acetaminophen (Tylenol) 650 mg PO Q6H PRN PRN Reason: pain Last Admin: 06/24/17 04:48 Dose: 650 mg Alteplase, Recombinant (Cathflo Activase) 2 mg IV ASDIRECTED PRN PRN Reason: PICC OCCLUSION Last Admin: 06/14/17 17:50 Dose: 2 mg Aspirin (Halfprin) 81 mg PO DAILY [facility] Last Admin: 06/25/17 08:41 Dose: 81 mg Atorvastatin Calcium (Lipitor) 40 mg PO BEDTIME [facility] Last Admin: 06/24/17 19:49 Dose: 40 mg Bupropion HCl (Wellbutrin Xl) 150 mg PO DAILY [facility] Last Admin: 06/25/17 08:42 Dose: 150 mg Calcium Carbonate/Glycine (Tums Extra Strength) 750 mg PO Q2H PRN PRN Reason: Dyspepsia Diphenhydramine HCl (Benadryl) 25 mg PO Q6H PRN PRN Reason: ITCHING Diphenhydramine HCl (Benadryl) 50 mg PO Q12HR [facility] Last Admin: 06/25/17 08:42 Dose: 50 mg Docusate Sodium (Colace) 100 mg PO BID [facility] Last Admin: 06/25/17 08:42 Dose: 100 mg Finasteride (Proscar) 5 mg PO DAILY [facility] Last Admin: 06/25/17 08:42 Dose: 5 mg Fluticasone Propionate (Flonase) 0 gm NASBOTH DAILY [facility] Last Admin: 06/25/17 08:45 Dose: 2 spray Heparin Sodium (Porcine) (Heparin Lock Flush 100 Units/Ml) 300 unit IVPUSH ASDIRECTED PRN PRN Reason: picc flush Last Admin: 06/25/17 08:22 Dose: 300 unit Heparin Sodium (Porcine) (Heparin Lock Flush 100 Units/Ml) 300 unit IVPUSH BID@ 1030,2230 [facility] Last Admin: 06/25/17 10:59 Dose: 300 unit Hydrochlorothiazide (Hydrochlorothiazide) 25 mg PO DAILY [facility] Last Admin: 06/25/17 08:42 Dose: 25 mg Vancomycin HCl 1 gm/ Sodium (Chloride) 250 mls @ 250 mls/hr IV Q12H [facility] Stop: 06/29/17 21:01 Last Admin: 06/25/17 09:52 Dose: 250 mls/hr Losartan Potassium (Cozaar) 100 mg PO DAILY [facility] Last Admin: 06/25/17 08:42 Dose: 100 mg Magnesium Oxide (Magnesium Oxide) 400 mg PO BID [facility] Last Admin: 06/25/17 08:42 Dose: 400 mg Metformin HCl (Glucophage) 1,000 mg PO BIDM [facility] Last Admin: 06/25/17 08:42 Dose: 1,000 mg Metoprolol Succinate (Toprol Xl) 25 mg PO DAILY [facility] Last Admin: 06/25/17 08:41 Dose: 25 mg Miconazole (Desenex 2%) 1 gm TOP BID PRN PRN Reason: Rash Multivitamins/Minerals (Thera M Plus) 1 tab PO DAILY [facility] Last Admin: 06/25/17 08:41 Dose: 1 tab Empagliflozin [ Jardiance] 25mg Patients Own Med 25 mg PO DAILY [facility] Last Admin: 06/25/17 08:45 Dose: 25 mg Probiotic Gummies ( (Own Supply)) 0 each PO DAILY@1200 [facility] Last Admin: 06/25/17 12:39 Dose: 2 each Omeprazole (Omeprazole) 20 mg PO ACBRK [facility] Last Admin: 06/25/17 06:09 Dose: 20 mg Ondansetron HCl (Zofran) 4 mg IV Q6H PRN PRN Reason: Nausea/Vomiting Polyethylene Glycol (Miralax) 17 gm PO Q12H PRN PRN Reason: Constipation Last Admin: 06/24/17 08:05 Dose: 17 gm Pseudoephedrine HCl (Sudogest) 30 mg PO Q6H PRN PRN Reason: Congestion Last Admin: 06/25/17 08:42 Dose: 30 mg Sodium Chloride (Saline Flush) 10 ml IV ASDIRECTED PRN PRN Reason: Keep Vein Open Last Admin: 06/25/17 10:59 Dose: 10 ml Tamsulosin HCl (Flomax) 0.4 mg PO BEDTIME [facility] Last Admin: 06/24/17 19:48 Dose: 0.4 mg Terbinafine HCl (Lamisil At 1% Crm) 0 gm TOP BID [facility] Stop: 07/07/17 20:00 Last Admin: 06/25/17 08:47 Dose: 1 applic Vancomycin HCl (Pharmacy To Dose - Vancomycin) 1 dose .XX ASDIRECTED [facility] Discontinued Medications Acetaminophen (Tylenol) 650 mg PO TID [facility] Last Admin: 06/01/17 12:16 Dose: Not Given Diphenhydramine HCl (Benadryl) 50 mg PO ONETIME ONE Stop: 05/29/17 15:31 Last Admin: 05/29/17 16:20 Dose: 50 mg Diphenhydramine HCl (Benadryl) 50 mg PO Q12H [facility] Stop: 05/30/17 23:59 Last Admin: 05/30/17 23:26 Dose: 50 mg Diphenhydramine HCl (Benadryl) 50 mg PO Q12H [facility] Last Admin: 06/02/17 07:42 Dose: 50 mg Fluticasone Propionate (Flonase) 0 gm NASBOTH DAILY PRN PRN Reason: CONGESTION Last Admin: 06/01/17 07:32 Dose: 1 spray Fluticasone Propionate (Flonase) 0 gm NASBOTH DAILY PRN PRN Reason: CONGESTION Heparin Sodium (Porcine) (Heparin Lock Flush 100 Units/Ml) 300 unit IVPUSH ONETIME ONE Stop: 05/29/17 17:01 Last Admin: 05/29/17 17:57 Dose: 300 unit Heparin Sodium (Porcine) (Heparin Lock Flush 100 Units/Ml) 300 unit IVPUSH ONETIME ONE Stop: 05/30/17 04:01 Last Admin: 05/30/17 03:37 Dose: 300 unit Heparin Sodium (Porcine) (Heparin Lock Flush 100 Units/Ml) 300 unit IVPUSH ONETIME ONE Stop: 05/30/17 15:01 Last Admin: 05/30/17 15:47 Dose: 300 unit Heparin Sodium (Porcine) (Heparin Lock Flush 100 Units/Ml) 300 unit IVPUSH ONETIME ONE Stop: 05/31/17 02:01 Last Admin: 05/31/17 02:33 Dose: 300 unit Heparin Sodium (Porcine) (Heparin Lock Flush 100 Units/Ml) 300 unit IVPUSH Q12H [facility] Last Admin: 06/02/17 10:45 Dose: 300 unit Heparin Sodium (Porcine) (Heparin Lock Flush 100 Units/Ml) 300 unit IVPUSH BID@ 1100,2300 [facility] Last Admin: 06/04/17 10:30 Dose: 300 unit Hydrochlorothiazide (Hydrochlorothiazide) 25 mg PO ONETIME ONE Stop: 05/29/17 18:24 Last Admin: 05/29/17 19:51 Dose: 25 mg Hydrochlorothiazide (Hydrochlorothiazide) 12.5 mg PO DAILY [facility] Last Admin: 06/16/17 08:02 Dose: 12.5 mg Vancomycin HCl 1.75 gm/ Sodium (Chloride) 500 mls @ 170 mls/hr IV ONETIME ONE Stop: 05/29/17 17:11 Last Admin: 05/29/17 14:41 Dose: 170 mls/hr Vancomycin HCl 1.75 gm/ Sodium (Chloride) 500 mls @ 170 mls/hr IV ONETIME ONE Stop: 05/30/17 03:56 Last Admin: 05/30/17 00:44 Dose: 170 mls/hr Vancomycin HCl 1.75 gm/ Sodium (Chloride) 500 mls @ 170 mls/hr IV ONETIME ONE Stop: 05/30/17 14:56 Last Admin: 05/30/17 12:27 Dose: 170 mls/hr Vancomycin HCl 1.75 gm/ Sodium (Chloride) 500 mls @ 170 mls/hr IV ONETIME ONE Stop: 05/31/17 01:56 Last Admin: 05/30/17 23:26 Dose: 170 mls/hr Vancomycin HCl 1.75 gm/ Sodium (Chloride) 500 mls @ 170 mls/hr IV Q12H [facility] Last Admin: 06/01/17 10:40 Dose: 170 mls/hr Vancomycin HCl 1.5 gm/ Sodium (Chloride) 500 mls @ 170 mls/hr IV Q12H [facility] Stop: 06/01/17 16:00 Last Admin: 06/01/17 10:59 Dose: 170 mls/hr Vancomycin HCl 1.25 gm/ Sodium (Chloride) 430 mls @ 145 mls/hr IV BID [facility] Last Admin: 06/04/17 08:40 Dose: 145 mls/hr Vancomycin HCl 1.25 gm/ Sodium (Chloride) 250 mls @ 175 mls/hr IV BID@0900, 2100 [facility] Last Admin: 06/11/17 11:15 Dose: Not Given Vancomycin HCl 1 gm/ Sodium (Chloride) 250 mls @ 250 mls/hr IV Q12H [facility] Last Admin: 06/18/17 09:54 Dose: 250 mls/hr Vancomycin HCl 1 gm/ Sodium (Chloride) 250 mls @ 250 mls/hr IV Q12H [facility] Last Admin: 06/18/17 12:55 Dose: Not Given Losartan Potassium (Cozaar) 50 mg PO ONETIME ONE Stop: 05/29/17 18:24 Last Admin: 05/29/17 19:50 Dose: 50 mg Losartan Potassium (Cozaar) 50 mg PO DAILY [facility] Last Admin: 06/16/17 08:02 Dose: 50 mg Miconazole (Desenex 2%) 0 gm TOP BID [facility] Last Admin: 06/22/17 11:37 Dose: Not Given Niacin (Niaspan) 1,000 mg PO DAILY [facility] Last Admin: 06/02/17 07:47 Dose: Not Given Omeprazole (Omeprazole) 20 mg PO DAILY [facility] Last Admin: 06/02/17 07:39 Dose: 20 mg Polyethylene Glycol (Miralax) 17 gm PO Q12H [facility] Last Admin: 05/31/17 09:14 Dose: Not Given Potassium Chloride (Klor-Con M20) 40 meq PO ONETIME ONE Stop: 06/09/17 10:59 Last Admin: 06/09/17 11:16 Dose: 40 meq Potassium Chloride (Klor-Con 10) 40 meq PO ONETIME ONE Stop: 06/22/17 17:17 Last Admin: 06/22/17 17:52 Dose: 40 meq Vancomycin HCl (Vancomycin) Confirm Administered Dose 1 gm .ROUTE .STK-MED ONE Stop: 06/19/17 07:44 Last Admin: 06/19/17 08:59 Dose: Not Given *Q Meaningful Use (DIS) - VTE *Q VTE Criteria *Q: - Stroke *Q Stroke Criteria *Q: - AMI *Q AMI Criteria *Q:
[2017-06-25] MEDS: Tamsulosin 0.4 MG Cap.ER PO SCH (20:11)
[2017-06-25] MEDS: atorvaSTATin 40 MG Tab PO SCH (20:11)
[2017-06-26] MEDS: Acetaminophen 325 MG Tab PO PRN (01:49)
[2017-06-26] MEDS: Omeprazole 20 MG Cap.CR PO SCH (06:08)
[2017-06-26] MEDS: Finasteride 5 MG Tab PO SCH (08:08)
[2017-06-26] MEDS: Multivitamins with Iron/Calcium/Folic Acid/Minerals Tab PO SCH (08:08)
[2017-06-26] MEDS: Pseudoephedrine 30 MG Tab PO PRN (08:08)
[2017-06-26] MEDS: Docusate Sodium 100 MG Cap PO SCH (08:08)
[2017-06-26] MEDS: diphenhydrAMINE 25 MG Cap PO SCH (08:08)
[2017-06-26] MEDS: metFORMIN 500 MG Tab PO SCH (08:08)
[2017-06-26] MEDS: Aspirin 81 MG Tab.EC PO SCH (08:08)
[2017-06-26] MEDS: Losartan 50 MG Tab PO SCH (08:08)
[2017-06-26] MEDS: Metoprolol Succinate 25 MG Tab.ER PO SCH (08:08)
[2017-06-26] MEDS: Fluticasone Propionate Nasal Spray 16 GM Bottle NASBOTH SCH (08:09)
[2017-06-26] MEDS: Terbinafine 1% Crm 30 GM Tube TOP SCH (08:09)
[2017-06-26] MEDS: EMPAGLIFLOZIN 25 MG PO SCH (08:09)
[2017-06-26] MEDS: Hydrochlorothiazide 12.5 MG Cap PO SCH (08:09)
[2017-06-26] MEDS: Magnesium Oxide 400 MG Tab PO SCH (08:09)
[2017-06-26] MEDS: buPROPion 150 MG Tab.ER PO SCH (08:12)
[2017-06-26] MEDS: Sodium Chloride 0.9% 10 ML Syringe IV PRN ×2 (09:07→10:18)
[2017-06-26] MEDS: Heparin Sodium 100 Units/ML 3 ML Syringe IVPUSH SCH (10:18)
== END 2017-06-26 11:40 | disposition home or self-care (01) | DRG 344 ==
LOC: VM.MS 13:57
PROVIDERS: ADMIT Family Medicine; ATTEND Family Medicine
DX: A18.01 Tuberculosis of spine (principal); A49.01 Methicillin susceptible Staphylococcus aureus infection, unspecified site; N40.0 Benign prostatic hyperplasia without lower urinary tract symptoms; N31.9 Neuromuscular dysfunction of bladder, unspecified; E87.6 Hypokalemia; K21.9 Gastro-esophageal reflux disease without esophagitis; R53.1 Weakness; E11.9 Type 2 diabetes mellitus without complications; I10 Essential (primary) hypertension; Z88.8 Allergy status to other drugs, medicaments and biological substances; Z91.048 Other nonmedicinal substance allergy status; Z88.0 Allergy status to penicillin; Z79.84 Long term (current) use of oral hypoglycemic drugs; Z79.82 Long term (current) use of aspirin; Z79.899 Other long term (current) drug therapy; J45.909 Unspecified asthma, uncomplicated; G89.29 Other chronic pain; M54.9 Dorsalgia, unspecified; F32.9 Major depressive disorder, single episode, unspecified; E66.9 Obesity, unspecified; Z68.28 Body mass index [BMI] 28.0-28.9, adult
CPT/HCPCS: 36415; 51701; 51702; 51703; 51798; 80053; 80202; 81001; 82565; 82962; 85025; 85652; 86140; 97110-GO; 97110-GP; 97112-GO; 97116-GP; 97161-GP; 97168-GO; 97530-GP; 97535-GO; A9270-GY; J1642; J2997; J3370; J7040; J7050